=== PATIENT | male | born 1945 | race Hispanic/Latino ===

== ENCOUNTER 2016-09-13 20:04 | Inpatient (IN) | payer MEDICARE, BC ==
[2016-09-13] MEDS ORDERED: cefTRIAXone 1 gm 1 GM/100 ML BAG IVPB STA (20:59)
--- NOTE | 2016-09-13 21:03 | ED PDOC ---
Arrival/HPI - General Chief Complaint: Fever Time Seen by Provider: 09/13/16 20:49 - History of Present Illness Narrative History of Present Illness (Text): 71m brought in by for "thick and cloudy" urine x2 days, fever and decreased responsiveness today. she caths him 2x per day. spoke w pcp today and rx cipro but only took one pill today. pt w hx of parkinson. Past Medical History - Infectious Disease Hx of Infectious Diseases: None - Tetanus Immunization Tetanus Immunization: Unknown - Cardiac Hx Cardiac Arrhythmia: Yes Hx Hypertension: Yes Hx Internal Defibrillator: Yes Hx Pacemaker: Yes - Pulmonary Hx Respiratory Disorders: No - Neurological Hx Dementia: Yes Hx Parkinson's Disease: Yes - HEENT Hx Cataracts: Yes - Renal Hx Kidney Stones: Yes - Hematological/Oncological Hx Anemia: Yes - Musculoskeletal/Rheumatological Hx Arthritis: Yes - Genitourinary/Gynecological Hx Incontinence: Yes - Psychiatric Hx Depression: Yes Hx Emotional Abuse: No Hx Physical Abuse: No Hx Substance Use: No - Past Surgical History Past Surgical History: Unable to Obtain - Surgical History Hx Joint Replacement: Yes (L HIP) Hx Orthopedic Surgery: Yes (left hip orif, L femur) - Anesthesia Hx Anesthesia Reactions: No (unknown) Hx Malignant Hyperthermia: No (unknown) - Suicidal Assessment Feels Threatened In Home Enviroment: No Family/Social History Family/Social History: Unknown Family HX Smoking Status: Former Smoker Hx Alcohol Use: No Hx Substance Use: No Hx Substance Use Treatment: No Allergies/Home Meds Allergies/Adverse Reactions: Allergies No Known Allergies Allergy (Verified 08/04/13 15:38) Home Medications: Home Meds Medication Instructions Recorded Confirmed Aspirin [Ecotrin] 81 mg PO DAILY 09/13/16 09/13/16 Carvedilol [Coreg] 12.5 mg PO BID 09/13/16 09/13/16 Review of Systems - Physician Review All systems were reviewed & negative as marked: Yes - Review of Systems Constitutional: Fevers, Other (rigors) Respiratory: absent: SOB, Cough Cardiovascular: absent: Chest Pain Gastrointestinal: absent: Diarrhea, Vomiting Genitourinary Male: Other (see hpi) Neurological: Speech Changes (speaking less). absent: Focal Weakness Physical Exam Vital Signs Temp Pulse Resp BP Pulse Ox 09/13/16 20:17 102.4 F H 97 H 20 113/54 L 96 - Systems Exam Head: Present: Atraumatic Mouth: Present: Dry Neck: Present: Normal Range of Motion Respiratory/Chest: Present: Clear to Auscultation. No: Respiratory Distress, Accessory Muscle Use Cardiovascular: Present: Regular Rate and Rhythm Abdomen: No: Tenderness, Distention Upper Extremity: Present: NORMAL PULSES Lower Extremity: No: Edema Neurological: Present: Other (no focal deficits) Skin: Present: Warm, Dry Psychiatric: Present: Alert, Oriented x 3 Medical Decision Making - RAD Interpretation Radiology Orders: 09/13/16 20:49 CHEST PORTABLE [RAD] Stat - Medication Orders Current Medication Orders: Discontinued Medications Sodium Chloride 2,000 ml/ IV (SUPPLIES) 2,000 mls @ 3,401.94 mls/hr IV ONCE ONE PRN Reason: 60 ML/KG/HR Stop: 09/13/16 20:50 Disposition/Present on Arrival - Present on Arrival History of DVT/PE: No History of Uncontrolled Diabetes: No Urinary Catheter: No History of Decub. Ulcer: No History Surgical Site Infection Following: None - Disposition Referrals: Cecilio Bonilla MD [Primary Care Provider] - Follow up with primary
[2016-09-13 21:16] LABS: ADD MANUAL DIFF? NO
[2016-09-13 21:23] LABS: GRAN # 12.83 (1.4-6.5); GRAN % 91.2 % (50.0-68.0); HEMATOCRIT 38.4 % (42.0-52.0); LYMPH # 0.3 (1.2-3.4); LYMPH % 1.8 % (22.0-35.0); MEAN CELL VOLUME 82.9 fL (80.0-105.0); MEAN CORPUSCULAR HGB CONC 32.6 g/dl (31.0-37.0); MEAN PLATELET VOLUME 11.7 fl (7.0-11.0); PLATELET COUNT 135 10^3/uL (120.0-450.0); RED CELL DISTRIBUTION WIDTH 15.2 % (11.5-14.5); WHITE BLOOD COUNT 14.1 10^3/ul (4.5-11.0)
[2016-09-13 21:32] LABS: VENOUS BLOOD GAS BASE EXCESS 1.5 mmol/L (0.0-2.0)
[2016-09-13 21:40] LABS: INR 1.14 (0.93-1.08); PARTIAL THROMBOPLASTIN TIME 30.6 Seconds (23.7-30.8)
[2016-09-13 21:41] LABS: ALB/GLOB RATIO 1.2 (1.1-1.8); BILIRUBIN,TOTAL 0.8 mg/dL (0.2-1.3); CALCIUM 9.1 mg/dL (8.4-10.5); MAGNESIUM 1.9 mg/dL (1.7-2.2); PHOSPHOROUS 2.8 mg/dL (2.5-4.5); POTASSIUM 4.3 mmol/L (3.6-5.0); TOTAL PROTEIN 6.7 g/dL (5.8-8.3)
[2016-09-13 22:17] LABS: URINE BILIRUBIN NEGATIVE (NEGATIVE); URINE BLOOD LARGE (NEGATIVE); URINE GLUCOSE (UA) NEGATIVE (NEGATIVE); URINE KETONE NEGATIVE (NEGATIVE); URINE LEUKOCYTE ESTERASE MODERATE Leu/uL (NEGATIVE); URINE PROTEIN 100 mg/dL (<30 mg/dL); URINE UROBILINOGEN 0.2 E.U./dL (<1 E.U./dL)
[2016-09-13 22:24] LABS: URINE APPEARANCE TURBID (CLEAR); URINE COLOR YELLOW (YELLOW)
[2016-09-13 22:27] LABS: URINE BACTERIA MANY (NEG); URINE RBC 20 - 25 /hpf (0-2); URINE WBC TNTC /hpf (0-6)
[2016-09-13] MEDS ORDERED: Sodium Chloride 0.9% 1,000 ML IV SCH (22:45)
[2016-09-14 01:51] LABS: VENOUS BLOOD GAS BASE EXCESS -2.5 mmol/L (0.0-2.0); VENOUS BLOOD PH 7.32 (7.32-7.43)
[2016-09-14 02:22] VITALS: BMI 19.0
--- NOTE | 2016-09-14 08:31 | RAD ---
HISTORY: Sepsis Patient COMPARISON: Chest x-ray performed 03/05/16 TECHNIQUE: Chest, one view. FINDINGS: Examination markedly limited by hypoinflation as well as habitus. The patient's chin obscures evaluation of the lung apices, in particularly the right lung apex. LUNGS: Perihilar prominence. No focal consolidation. Please note that chest x-ray has limited sensitivity for the detection of pulmonary masses. PLEURA: No significant pleural effusion identified. No definite pneumothorax . CARDIOVASCULAR: Single lead left-sided AICD. Cardiomegaly. Ectatic aorta. OSSEOUS STRUCTURES: No acute osseous abnormality identified. VISUALIZED UPPER ABDOMEN: Unremarkable. OTHER FINDINGS: None. IMPRESSION: Limited study. Perihilar prominence. Cardiomegaly. Single lead AICD.
[2016-09-14] MEDS: Cefepime 1gm in NS 100ml 1 GM/100 ML BAG IVPB SCH ×2 (10:11→22:38)
[2016-09-14] MEDS ORDERED: Sodium Chloride 0.9% 1,000 ML IV SCH (10:42)
[2016-09-14 12:17] LABS: ADD MANUAL DIFF? NO
[2016-09-14 12:21] LABS: BASO # 0.01 K/mm3 (0.0-2.0); BASO % 0.1 % (0.0-3.0); GRAN # 13.21 (1.4-6.5); GRAN % 89.9 % (50.0-68.0); HEMATOCRIT 38.3 % (42.0-52.0); LYMPH # 0.4 (1.2-3.4); LYMPH % 2.8 % (22.0-35.0); MEAN CELL VOLUME 84.2 fL (80.0-105.0); MEAN CORPUSCULAR HEMOGLOBIN 27.7 pg (25.0-35.0); MEAN CORPUSCULAR HGB CONC 32.9 g/dl (31.0-37.0); MEAN PLATELET VOLUME 11.9 fl (7.0-11.0); MONO # 1.1 (0.1-0.6); MONO % 7.2 % (1.0-6.0); PLATELET COUNT 124 10^3/uL (120.0-450.0); RED CELL DISTRIBUTION WIDTH 15.5 % (11.5-14.5); WHITE BLOOD COUNT 14.7 10^3/ul (4.5-11.0)
[2016-09-14 12:34] LABS: ALB/GLOB RATIO 1.2 (1.1-1.8); ALKALINE PHOSPHATASE 62 U/L (38-133); ALT/SGPT 21 U/L (7-56); AST/SGOT 28 U/L (15-59); BILIRUBIN,TOTAL 0.5 mg/dL (0.2-1.3); BLOOD UREA NITROGEN 22 mg/dL (7-21); CALCIUM 9.1 mg/dL (8.4-10.5); CARBON DIOXIDE 19 mmol/L (21-33); CHLORIDE 112 mmol/L (98-107); GFR AFRICAN-AMERICAN > 60; GLUCOSE,RANDOM 115 mg/dL (70-110); POTASSIUM 4.3 mmol/L (3.6-5.0); SODIUM 141 mmol/L (132-148); TOTAL PROTEIN 5.9 g/dL (5.8-8.3)
--- NOTE | 2016-09-14 13:49 | US ---
PROCEDURE: Ultrasound of the Kidneys HISTORY: rule out hydronephrosis COMPARISON: Renal ultrasound performed 05/03/13 TECHNIQUE: Sonogram of the kidneys. FINDINGS: Examination limited by habitus. RIGHT KIDNEY: Measures: 10.6 x 5.5 x 5.5 cm. No obstructing calculus or hydronephrosis identified. 2.3 x 1.6 x 1.7 cm cyst. LEFT KIDNEY: Measures: 10 x 6.2 x 7.7 cm. No obstructing calculus identified. Probable mild to moderate left hydronephrosis. 6.0 x 4.9 x 5.3 cm cyst. OTHER FINDINGS: None. IMPRESSION: Limited study. Bilateral large probable renal cysts as above. Probable mild to moderate left hydronephrosis.
--- NOTE | 2016-09-14 15:19 | HP ---
HISTORY OF PRESENT ILLNESS: I saw him in his room this morning. I see him on house calls. His is present. He is fairly comfortable. He came in with a thick and cloudy urine for 2 days, decreas ed responsiveness. He has to cath himself twice a day. He was on Cipro, did not work, and now we se e he has a history of Parkinson's. He is a 71-year-old male who now has thick and cloudy urine, prob ably infected. PAST MEDICAL HISTORY: Parkinson's, hypertension, internal defibrillator pacemaker, AICD. He has got dementia, cataracts. He has kidney stones, anemia, arthritis, incontinence, depression, left hip re placement, ORIF left femur. FAMILY HISTORY: Hypertension in the family. SOCIAL HISTORY: He is a former smoker, no alcohol, no drugs. ALLERGIES: No known drug allergies. MEDICATIONS: He takes Ecotrin and Coreg. REVIEW OF SYSTEMS: He had fever, chills, change in mentation, a little more confused. No shortness of breath, no chest pain, no nausea, vomiting, constipation, diarrhea. He has urinary retention and he self-caths himself. He had speech changes, slurred speech, he was off mentally. No skin issues. PHYSICAL EXAMINATION: VITAL SIGNS: He comes in with a 102.4 temp, 97 pulse, 20 respiratory rate, 113/54 blood pressure, 96 % O2 sat. HEENT: Head is atraumatic, normocephalic. Throat is dry. NECK: Supple. Thyroid midline. No palpable appreciative lymphadenopathy. HEART: Regular rate. LUNGS: Decreased breath sounds, but clear to auscultation. No wheezes, no rhonchi, no rales. ABDOMEN: Soft, nontender, positive bowel sounds, no guarding, no rebound, no CVA tenderness. EXTREMITIES: No edema, but they are weak, slow to move from the Parkinson's. He is weak to talk, sl ow to get started. Flat affect on the face due to Parkinson's. SKIN: Warm and dry. NEUROLOGIC: He is alert and oriented x 3. LABORATORY DATA: He has a 14.1 white count, 12.5 hemoglobin, 30.4 hematocrit with 135 platelets. IN R is 1.14, pH is 7.32. He has a 135 sodium, potassium 4.3, BUN 26, creatinine 1.5. Sugar is 126. GF R is 46. Calcium 9.1, phosphorus 2.8, magnesium 1.9, total bili is 0.8, AST is 27, ALT is 23, alkali ne phosphatase 61, total protein 6.7, albumin 3.6, globulin 3.1. On urine, large blood, positive nit rites, moderate leukocytes, many bacteria. ASSESSMENT AND PLAN: He is here with a urinary tract infection, sepsis, renal insufficiency, history of Parkinson's. The wants him to go home, but at this time I cannot see that happening. Will recheck his labs. He is going to have a consult with urology. His doctor is Dr. Grant. Also infecti ous disease for intravenous antibiotics and intravenous fluids. I will watch him overnight. We will see how he does with the physical therapy. Rambo Smith DO cc: [id number] TT: 09/14/2016 15:18:50 rn
--- NOTE | 2016-09-14 15:20 | CP.PCM.CON ---
History of Present Illness - History of Present Illness History of Present Illness: 71 year old male with PMH of HTN, S/P AICD and pacemaker placement, cataracts, Parkinson's disease, dementia, S/P left hip surgery, history of nephrolithiasis was brought in by the because of cloudy urine associated with fever and lethargy for the past 2 days. There was no note of loss of consciousness, no vomiting, no diarrhea, no convulsions. Further review of systems is unobtainable because of the patient's dementia. Infectious Diseases consult is requested to further evaluate and manage. Review of Systems - Review of Systems Systems not reviewed;Unavailable: Dementia Past Patient History - Infectious Disease Hx of Infectious Diseases: None - Tetanus Immunizations Tetanus Immunization: Unknown - Past Social History Smoking Status: Former Smoker - CARDIAC Hx Cardiac Disorders: Yes Hx Angina: Yes Hx Hypercholesterolemia: Yes Hx Hypertension: Yes Hx Internal Defibrillator: Yes Hx Pacemaker: Yes - PULMONARY Hx Respiratory Disorders: No - NEUROLOGICAL Hx Parkinson's Disease: Yes - HEENT Hx HEENT Problems: No - RENAL Hx Chronic Kidney Disease: No - ENDOCRINE/METABOLIC Hx Endocrine Disorders: No - HEMATOLOGICAL/ONCOLOGICAL Hx Blood Disorders: No - INTEGUMENTARY Hx Dermatological Problems: No - MUSCULOSKELETAL/RHEUMATOLOGICAL Hx Arthritis: Yes Hx Falls: No - GENITOURINARY/GYNECOLOGICAL Hx Genitourinary Disorders: Yes Hx Prostate Problems: Yes Hx Urinary Tract Infection: Yes - PSYCHIATRIC Hx Psychophysiologic Disorder: Yes Hx Anxiety: Yes Hx Depression: Yes Hx Substance Use: No - SURGICAL HISTORY Hx Orthopedic Surgery: Yes - ANESTHESIA Hx Anesthesia Reactions: No (unknown) Hx Malignant Hyperthermia: No (unknown) Meds Allergies/Adverse Reactions: Allergies Allergy/AdvReac Type Severity Reaction Status Date / Time No Known Allergies Allergy Verified 08/04/13 15:38 - Medications Medications: Current Medications Sodium Chloride (Sodium Chloride 0.9%) 1,000 mls @ 100 mls/hr IV .Q10H [facility] Last Admin: 09/14/16 00:44 Dose: 100 mls/hr Physical Exam - Constitutional Appears: Non-toxic, No Acute Distress - Head Exam Head Exam: NORMAL INSPECTION - Neck Exam Neck exam: Negative for: Meningismus - Respiratory Exam Respiratory Exam: Decreased Breath Sounds - Cardiovascular Exam Cardiovascular Exam: +S1, +S2 - GI/Abdominal Exam GI & Abdominal Exam: Soft. absent: Tenderness Results - Vital Signs Recent Vital Signs: Last Vital Signs Temp 98.2 F 09/14/16 01:25 Pulse 70 09/14/16 01:25 Resp 18 09/14/16 01:25 BP 108/62 09/14/16 01:25 Pulse Ox 94 L 09/14/16 00:29 - Labs Result Diagrams: 09/14/16 12:16 09/14/16 12:12 Labs: Laboratory Results - last 24 hr 09/14/16 01:40 pO2 38 VBG pH 7.32 VBG pCO2 46.0 VBG HCO3 23.7 VBG Total CO2 25.1 VBG O2 Sat (Calc) 72.7 H VBG Base Excess -2.5 L VBG Potassium 4.2 Sodium 138.0 Chloride 112.0 H Glucose 126 H Lactate 0.8 FiO2 21.0 Venous Blood Potassium 4.2 Assessment & Plan - Assessment and Plan (Free Text) Plan: Assessment Systemic Inflammatory Response syndrome, consider sepsis due to urinary tract infection HTN S/P AICD and pacemaker placement cataracts Parkinson's disease dementia S/P left hip surgery history of nephrolithiasis Plan started patient on Cefepime pending blood and urine cx; will also check renal ultrasound especially since he has a history of kidney stones will follow clinically
--- NOTE | 2016-09-14 15:43 | CARD ---
APPROVED REPORT EKG Measurement Heart [id number] <Conclusion> Sinus rhythm with occasional premature ventricular complexes Left axis deviation Left ventricular hypertrophy with QRS widening and repolarization abnormality Abnormal ECG
[2016-09-14 16:52] VITALS: RESP 20
--- NOTE | 2016-09-15 06:28 | PCM.URO ---
Urology Progress Note - Objective Lab Results Last 24 Hours: Laboratory Results - last 24 hr 09/14/16 09/14/16 09/14/16 10:03 12:12 12:16 WBC 14.7 H RBC 4.55 Hgb 12.6 L Hct 38.3 L MCV 84.2 MCH 27.7 MCHC 32.9 RDW 15.5 H Plt Count 124 MPV 11.9 H Gran % 89.9 H Lymph % (Auto) 2.8 L [place] % (Auto) 7.2 H Eos % (Auto) 0.0 L Baso % (Auto) 0.1 Gran # 13.21 H Lymph # 0.4 L [place] # 1.1 H Eos # 0.0 Baso # 0.01 Sodium 141 Potassium 4.3 Chloride 112 H Carbon Dioxide 19 L Anion Gap 14 BUN 22 H Creatinine 1.3 Est GFR ( Amer) > 60 Est GFR (Non-Af Amer) 54 Random Glucose 115 H Calcium 9.1 Total Bilirubin 0.5 AST 28 ALT 21 Alkaline Phosphatase 62 Total Protein 5.9 Albumin 3.2 Globulin 2.7 Albumin/Globulin Ratio 1.2 Prostate Specific Ag 6.3 H Intake & Output: Intake & Output 09/14/16 09/14/16 09/15/16 06:59 18:59 06:59 Intake Total 0 Balance 0 Weight 125 lb Intake: Oral 0 Other: Voiding Method Self-Catheterization # Voids Urine, Voided 0 # Bowel Movements 0 Vital Signs: Vital Signs - 24 hr 09/14/16 09/14/16 09/14/16 08:18 16:52 18:45 Temperature 98.7 F 97.5 F L Pulse Rate 68 95 H 95 H Respiratory 18 20 Rate Blood Pressure 137/67 128/72 128/72 O2 Sat by Pulse 97 96 Oximetry
[2016-09-15 08:28] LABS: ALB/GLOB RATIO 1.1 (1.1-1.8); ALKALINE PHOSPHATASE 59 U/L (38-133); ALT/SGPT 25 U/L (7-56); AST/SGOT 25 U/L (15-59); BILIRUBIN,TOTAL 0.4 mg/dL (0.2-1.3); BLOOD UREA NITROGEN 19 mg/dL (7-21); CALCIUM 8.6 mg/dL (8.4-10.5); CARBON DIOXIDE 19 mmol/L (21-33); CHLORIDE 111 mmol/L (95-110); GFR AFRICAN-AMERICAN > 60; GLUCOSE,RANDOM 81 mg/dL (70-110); POTASSIUM 3.7 mmol/L (3.6-5.0); SODIUM 140 mmol/L (132-148)
[2016-09-15 08:33] LABS: HEMATOCRIT 37.1 % (42.0-52.0); MEAN CELL VOLUME 83.9 fL (80.0-105.0); MEAN CORPUSCULAR HEMOGLOBIN 26.7 pg (25.0-35.0); MEAN CORPUSCULAR HGB CONC 31.8 g/dl (31.0-37.0); RED CELL DISTRIBUTION WIDTH 15.6 % (11.5-14.5); WHITE BLOOD COUNT 9.2 10^3/ul (4.5-11.0)
[2016-09-15 08:35] VITALS: BP 140/79; PULSE 86; TEMP 97.8; O2SAT 97
[2016-09-15] MEDS: Cefepime 1gm in NS 100ml 1 GM/100 ML BAG IVPB SCH (09:18)
--- NOTE | 2016-09-15 12:26 | CP.PCM.PN ---
Subjective - Date & Time of Evaluation Date of Evaluation: 09/15/16 Time of Evaluation: 11:25 - Subjective Subjective: Comfortable in bed, not in distress. Afebrile overnight. Objective - Vital Signs/Intake and Output Vital Signs (last 24 hours): Temp Pulse Resp BP Pulse Ox 97.8 F 86 20 140/79 97 09/15/16 08:34 09/15/16 09:18 09/15/16 08:34 09/15/16 09:18 09/15/16 08:34 - Medications Medications: Current Medications Aspirin (Ecotrin) 81 mg PO DAILY [facility] Last Admin: 09/15/16 09:18 Dose: 81 mg Carvedilol (Coreg) 12.5 mg PO BID [facility] Last Admin: 09/15/16 09:18 Dose: 12.5 mg Cefepime HCl (Maxipime 1gm) 1 gm in 100 mls @ 100 mls/hr IVPB Q12 [facility] PRN Reason: Protocol Stop: 09/21/16 10:01 Last Admin: 09/15/16 09:18 Dose: 100 mls/hr Sodium Chloride (Sodium Chloride 0.9%) 1,000 mls @ 60 mls/hr IV .[id number] [facility] - Labs Labs: 09/15/16 07:54 09/15/16 07:54 PT 12.3 Seconds (9.9-11.8) H 09/13/16 20:31 INR 1.14 (0.93-1.08) H 09/13/16 20:31 APTT 30.6 Seconds (23.7-30.8) 09/13/16 20:31 - Constitutional Appears: Non-toxic, No Acute Distress - Head Exam Head Exam: NORMAL INSPECTION - Neck Exam Neck Exam: absent: Lymphadenopathy, Meningismus - Respiratory Exam Respiratory Exam: Decreased Breath Sounds - Cardiovascular Exam Cardiovascular Exam: +S1, +S2 - GI/Abdominal Exam GI & Abdominal Exam: Soft. absent: Tenderness Assessment and Plan - Assessment and Plan (Free Text) Plan: Assessment Systemic Inflammatory Response syndrome, consider sepsis due to urinary tract infection HTN S/P AICD and pacemaker placement cataracts Parkinson's disease dementia S/P left hip surgery history of nephrolithiasis Plan started patient on Cefepime; reviewed blood and urine cx which are negative, but urine cx may have been taken after antibiotics were started; renal ultrasound shows hydronephrosis but no evidence of obstruction or stones - as discussed with Dr. Smith, can change to PO Vantin with outpatient follow up with PMD
--- NOTE | 2016-09-15 18:09 | DS ---
He did very well last night. He is there with his . He is comfortable, in no acute distress. Johanna tay says he is back to normal. He is currently on Coreg, Ecotrin, Maxipime IV, and IV. PHYSICAL EXAMINATION: VITAL SIGNS: Are 97.8 temp, 86 pulse, 140/79 blood pressure, 20 respiratory rate, 97% O2 sat on room air. HEAD: Is atraumatic, normocephalic. HEART: Regular rate. LUNGS: Clear to auscultation. ABDOMEN: Soft, nontender. EXTREMITIES: No edema. LABORATORY DATA: He has got a 9.2 white count, the best it has been; a 11.8 hemoglobin, 37.1 hematoc rit with 119 platelets. He has a 140 sodium, potassium 3.7, BUN 19, creatinine 1.3, much better. GF R is 54, sugar is 81, calcium is 8.6, total bili is 0.4. AST is 25, ALT is 25, alkaline phosphatase 59, total protein 6, albumin is 3.1, globulin 2.8. He is being seen by infectious disease and urology. I discussed him with infectious disease. I can discharge him on Vantin. He did very well. I will be discharging him home. He will be followed up on the outpatient on a house call. He had a urinary tract infection, sepsis, systemic inflammatory r esponse syndrome, renal insufficiency and Parkinson's. Rambo Smith DO cc: [id number] TT: 09/15/2016 18:08:46 dn
== END 2016-09-15 14:03 | disposition home or self-care (01) | DRG 872 ==
LOC: ED 20:04 → ERH 22:38 → 3RSO 09-14 00:48
PROVIDERS: ADMIT Family Medicine; ATTEND Family Medicine
DX: A41.9 Sepsis, unspecified organism (principal); N39.0 Urinary tract infection, site not specified; G20 Parkinson's disease; F02.80 Dementia in other diseases classified elsewhere, unspecified severity, without behavioral disturbance, psychotic disturbance, mood disturbance, and anxiety; I10 Essential (primary) hypertension; H26.9 Unspecified cataract; Z96.642 Presence of left artificial hip joint; Z87.442 Personal history of urinary calculi; Z95.810 Presence of automatic (implantable) cardiac defibrillator; Z79.82 Long term (current) use of aspirin; Z87.891 Personal history of nicotine dependence

== ENCOUNTER 2016-10-13 12:02 | Inpatient (IN) | payer MEDICARE, BC ==
[2016-10-13 12:03] VITALS: BMI 19.0
--- NOTE | 2016-10-13 13:21 | ED PDOC ---
Arrival/HPI - General Chief Complaint: Weakness/Neurological Deficit Time Seen by Provider: 10/13/16 12:08 Historian: Patient - History of Present Illness Narrative History of Present Illness (Text): 10/13/16 13:27 A 71 year old male, whose past medical history includes Parkinson's disease, was brought in by EMS with . reports unresponsive and dark urine since yesterday. Also notes patient is usually able to walk with walker and more awake. caths patient twice a day. Patient has visiting nurse service. also notes a decrease in appetite and clear phlegm but denies any fever or any other complaints at this time. PMD: Dr. Smith Time/Duration: Other (yesterday) Symptom Onset: Sudden Symptom Course: Unchanged Activities at Onset: Rest Context: Home Past Medical History - Provider Review Nursing Documentation Reviewed: Yes - Infectious Disease Hx of Infectious Diseases: None - Tetanus Immunization Tetanus Immunization: Unknown - Cardiac Hx Cardiac Arrhythmia: Yes Hx Hypertension: Yes Hx Internal Defibrillator: Yes Hx Pacemaker: Yes - Pulmonary Hx Respiratory Disorders: No - Neurological Hx Dementia: Yes Hx Parkinson's Disease: Yes - HEENT Hx Cataracts: Yes - Renal Hx Kidney Stones: Yes - Endocrine/Metabolic Hx Endocrine Disorders: No - Hematological/Oncological Hx Anemia: Yes - Integumentary Hx Dermatological Disorder: No - Musculoskeletal/Rheumatological Hx Arthritis: Yes - Genitourinary/Gynecological Hx Incontinence: Yes - Psychiatric Hx Depression: Yes Hx Emotional Abuse: No Hx Physical Abuse: No Hx Substance Use: No - Past Surgical History Past Surgical History: Unable to Obtain - Surgical History Hx Joint Replacement: Yes (L HIP) Hx Orthopedic Surgery: Yes (left hip orif, L femur) - Anesthesia Hx Anesthesia Reactions: No (unknown) Hx Malignant Hyperthermia: No (unknown) - Suicidal Assessment Feels Threatened In Home Enviroment: No Family/Social History - Physician Review Nursing Documentation Reviewed: Yes Family/Social History: No Known Family HX Smoking Status: Former Smoker Hx Alcohol Use: No Hx Substance Use: No Hx Substance Use Treatment: No Allergies/Home Meds Allergies/Adverse Reactions: Allergies No Known Allergies Allergy (Verified 10/13/16 12:14) Home Medications: Home Meds Medication Instructions Recorded Confirmed Aspirin [Ecotrin] 81 mg PO DAILY 09/13/16 10/13/16 Carvedilol [Coreg] 12.5 mg PO BID 09/13/16 10/13/16 Review of Systems - Physician Review All systems were reviewed & negative as marked: Yes - Review of Systems Constitutional: Other (unresponsiveness). absent: Fevers Respiratory: absent: Other (clear phlegm) Gastrointestinal: Appetite Changes Genitourinary Male: Urinary Output Changes Physical Exam Vital Signs Reviewed: Yes Vital Signs Temp Pulse Resp BP Pulse Ox 10/13/16 16:07 80 16 98/55 L 95 10/13/16 13:44 100.5 F H 92 H 16 110/53 L 94 L Temperature: Febrile Blood Pressure: Hypotensive Pulse: Regular Respiratory Rate: Normal Appearance: Positive for: Well-Appearing, Non-Toxic, Comfortable Pain Distress: None Mental Status: Positive for: other (responding, following commands) - Systems Exam Head: Present: Atraumatic, Normocephalic Pupils: Present: PERRL Extroacular Muscles: Present: EOMI Conjunctiva: Present: Normal Mouth: Present: Dry Neck: Present: Normal Range of Motion Respiratory/Chest: Present: Clear to Auscultation, Good Air Exchange. No: Respiratory Distress, Accessory Muscle Use Cardiovascular: Present: Regular Rate and Rhythm, Normal S1, S2. No: Murmurs Abdomen: Present: Normal Bowel Sounds. No: Tenderness, Distention, Peritoneal Signs Back: Present: Normal Inspection Upper Extremity: Present: Normal Inspection. No: Cyanosis, Edema Lower Extremity: Present: Normal Inspection. No: Edema (peripheral) Neurological: Present: GCS=15, CN II-XII Intact, Speech Normal Skin: Present: Warm, Dry, Normal Color. No: Rashes Psychiatric: Present: Normal [facility]ight Medical Decision Making ED Course and Treatment: 10/13/16 13:18 Impression: A 71 year old male with unresponsiveness and dark urine. Differential Diagnosis included but are not limited to: dehydration vs. urinary tract infection vs. pneumonia Plan: -- EKG -- chest xray -- CT head -- labs -- Urinalysis -- Reassess and disposition Prior Visits: Notes and results from previous visits were reviewed. Patient last reported to the emergency department on 09/13/16 for evaluation of fever, decreased responsiveness and "thick and cloudy" urine. Patient was admitted for UTI. Patient was discharged 09/15/16. Progress Notes: EKG: Ordered, reviewed, and independently interpreted the EKG. Rate : 93 BPM Rhythm : NSR Interpretation : left axis deviation, anterior fascicular block, T wave inversion 1 AVL, LVH Comparison : No change from EKG on 09/13/16 10/13/16 14:06 Chest xray: Creator : Lexa Workman MD IMPRESSION: No focal consolidation. Cardiomegaly. 10/13/16 14:44 CT HEAD WITHOUT CONTRAST Creator : Lexa Workman MD IMPRESSION: No acute intracranial hemorrhage. Moderate chronic white matter ischemic changes. Discrete chronic left posterior frontal infarct with a few chronic appearing subcortical white matter infarct changes scattered about both cerebral hemispheres. - Lab Interpretations Lab Results: 10/13/16 13:34 10/13/16 13:34 Lab Results 10/13/16 13:40: Urine Color Yellow, Urine Appearance Clear, Urine pH 6.0, Ur Specific [place] 1.025, Urine Protein 100 H, Urine Glucose (UA) Negative, Urine Ketones Negative, Urine Blood Moderate H, Urine Nitrate Positive H, Urine Bilirubin Negative, Urine Urobilinogen 0.2, Ur Leukocyte Esterase Small H, Urine RBC 0 - 2, Urine WBC Tntc, Ur Epithelial Cells 0 - 2, Urine Bacteria Mod 10/13/16 13:34: Sodium 136, Chloride 105, Potassium 4.5, Carbon Dioxide 22, Anion Gap 14, BUN 22 H, Creatinine 1.4, Est GFR ( Amer) > 60, Est GFR ( Non-Af Amer) 50, Random Glucose 123 H, Calcium 9.2, Phosphorus 3.4, Magnesium 1.9, Total Bilirubin 1.1, AST 17, ALT 18, Alkaline Phosphatase 66, Troponin I < 0.01 D, Total Protein 6.8, Albumin 3.7, Globulin 3.1, Albumin/Globulin Ratio 1.2 10/13/16 13:34: pO2 61 H, VBG pH 7.43, VBG pCO2 37.0 L, VBG HCO3 24.6, VBG Total CO2 25.7, VBG O2 Sat (Calc) 94.9 H, VBG Base Excess 0.5, VBG Potassium 4.4 , Sodium 137.0, Chloride 107.0, Glucose 128 H, Lactate 1.1, FiO2 21.0, Venous Blood Potassium 4.4 10/13/16 13:34: WBC 13.3 H D, RBC 4.73, Hgb 12.9 L, Hct 39.2 L, MCV 82.9, MCH 27.3, MCHC 32.9, RDW 15.6 H, Plt Count 110 L, MPV 11.0, Gran % 89.8 H, Lymph % ( Auto) 3.2 L, [place] % (Auto) 6.9 H, Eos % (Auto) 0.0 L, Baso % (Auto) 0.1, Gran # 11.91 H, Lymph # 0.4 L, [place] # 0.9 H, Eos # 0.0, Baso # 0.01 I have reviewed the lab results: Yes - RAD Interpretation Radiology Orders: 10/13/16 12:38 CHEST PORTABLE [RAD] Stat 10/13/16 12:59 HEAD W/O CONTRAST [CT] Stat - EKG Interpretation Interpreted by ED Physician: Yes Type: 12 lead EKG - Medication Orders Current Medication Orders: Aspirin (Aspirin Chewable) 81 mg PO HS BERONICA Carvedilol (Coreg) 12.5 mg PO BID BERONICA Sodium Chloride (Sodium Chloride 0.9%) 1,000 mls @ 100 mls/hr IV .Q10H BERONICA Last Admin: 10/13/16 14:14 Dose: 100 mls/hr Cefepime HCl (Maxipime 1gm) 1 gm in 100 mls @ 100 mls/hr IVPB Q12 BERONICA PRN Reason: Protocol Stop: 10/20/16 22:01 Discontinued Medications Ceftriaxone Sodium (Rocephin 1 Gram Ivpb) 1 gm in 100 mls @ 200 mls/hr IVPB STAT STA PRN Reason: Protocol Stop: 10/13/16 16:01 Last Admin: 10/13/16 16:07 Dose: 200 mls/hr - Scribe Statement The provider has reviewed the documentation as recorded by the Luz Knott Provider Scribe Attestation: All medical record entries made by the Luz were at my direction and personally dictated by me. I have reviewed the chart and agree that the record accurately reflects my personal performance of the history, physical exam, medical decision making, and the department course for this patient. I have also personally directed, reviewed, and agree with the discharge instructions and disposition. Disposition/Present on Arrival - Present on Arrival Any Indicators Present on Arrival: No History of DVT/PE: No History of Uncontrolled Diabetes: No Urinary Catheter: No History of Decub. Ulcer: No History Surgical Site Infection Following: None - Disposition Have Diagnosis and Disposition been Completed?: Yes Diagnosis: UTI (urinary tract infection), Dehydration Disposition: HOSPITALIZED Disposition Time: 15:15 Condition: STABLE
[2016-10-13 13:41] LABS: VENOUS BLOOD GAS BASE EXCESS 0.5 mmol/L (0.0-2.0); VENOUS BLOOD GAS PO2 61 mm/Hg (30-55); VENOUS BLOOD PH 7.43 (7.32-7.43)
[2016-10-13 13:48] LABS: BASO # 0.01 K/mm3 (0.0-2.0); BASO % 0.1 % (0.0-3.0); GRAN # 11.91 (1.4-6.5); GRAN % 89.8 % (50.0-68.0); HEMOGLOBIN 12.9 gm/dL (14.0-18.0); LYMPH # 0.4 (1.2-3.4); LYMPH % 3.2 % (22.0-35.0); MEAN CELL VOLUME 82.9 fL (80.0-105.0); MEAN CORPUSCULAR HEMOGLOBIN 27.3 pg (25.0-35.0); MEAN CORPUSCULAR HGB CONC 32.9 g/dl (31.0-37.0); MONO # 0.9 (0.1-0.6); MONO % 6.9 % (1.0-6.0); PLATELET COUNT 110 10^3/uL (120.0-450.0); RBC 4.73 10^6/uL (3.5-6.1); RED CELL DISTRIBUTION WIDTH 15.6 % (11.5-14.5); WHITE BLOOD COUNT 13.3 10^3/ul (4.5-11.0)
[2016-10-13 13:59] LABS: URINE BILIRUBIN NEGATIVE (NEGATIVE); URINE BLOOD MODERATE (NEGATIVE); URINE GLUCOSE (UA) NEGATIVE (NEGATIVE); URINE LEUKOCYTE ESTERASE SMALL Leu/uL (NEGATIVE); URINE NITRATE POSITIVE (NEGATIVE); URINE PROTEIN 100 mg/dL (<30 mg/dL); URINE UROBILINOGEN 0.2 E.U./dL (<1 E.U./dL)
[2016-10-13 14:00] LABS: URINE APPEARANCE CLEAR (CLEAR); URINE COLOR YELLOW (YELLOW)
--- NOTE | 2016-10-13 14:05 | RAD ---
HISTORY: r/o infiltrate COMPARISON: Comparison chest 09/13/2016 FINDINGS: LUNGS: No focal consolidation. PLEURA: No significant pleural effusion identified, no pneumothorax apparent. CARDIOVASCULAR: In situ single lead pacemaker defibrillator unchanged. Rule Cardiomegaly. OSSEOUS STRUCTURES: No significant abnormalities. VISUALIZED UPPER ABDOMEN: Normal. OTHER FINDINGS: None. IMPRESSION: No focal consolidation. Cardiomegaly.
[2016-10-13 14:06] LABS: ALB/GLOB RATIO 1.2 (1.1-1.8); ALBUMIN 3.7 g/dL (3.0-4.8); ALT/SGPT 18 U/L (7-56); AST/SGOT 17 U/L (15-59); BLOOD UREA NITROGEN 22 mg/dL (7-21); CALCIUM 9.2 mg/dL (8.4-10.5); GFR AFRICAN-AMERICAN > 60; GFR NON-AFRICAN AMERICAN 50; MAGNESIUM 1.9 mg/dL (1.7-2.2)
[2016-10-13 14:11] LABS: URINE BACTERIA MOD (NEG); URINE EPITHELIAL CELLS 0 - 2 /hpf (0-5); URINE RBC 0 - 2 /hpf (0-2); URINE WBC TNTC /hpf (0-6)
[2016-10-13] MEDS: Sodium Chloride 0.9% 1,000 ML IV SCH (14:14)
--- NOTE | 2016-10-13 14:43 | CT ---
PROCEDURE: CT HEAD WITHOUT CONTRAST. HISTORY: r/o ICH COMPARISON: Comparison made with CT scan brain 03/06/2015 TECHNIQUE: Axial computed tomography images were obtained through the head/brain without intravenous contrast. Radiation dose: Total exam DLP = 774.32 key3 mGy-cm. This CT exam was performed using one or more of the following dose reduction techniques: Automated exposure control, adjustment of the mA and/or kV according to patient size, and/or use of iterative reconstruction technique. FINDINGS: HEMORRHAGE: No acute parenchymal, subarachnoid nor extra-axial hemorrhage. BRAIN: Re- demonstrated is chronic left posterior frontal cortical/ subcortical and slightly deeper white matter infarct. Additionally, moderate diffuse/ confluent chronic periventricular white matter ischemic changes are also seen extending peripherally into the deep and subcortical white matter both cerebral hemispheres. The few scattered subcortical on ischemic changes are also felt to be present. Note that the possibility of a small hyperacute infarct cannot be completely excluded on this study. Moderate generalized volume loss. Mild vascular calcifications again noted. VENTRICLES: No evidence of obstructive hydrocephalus CALVARIUM: Calvarium appears grossly intact PARANASAL SINUSES: Unremarkable as visualized. No significant inflammatory changes. MASTOID AIR CELLS: Unremarkable as visualized. No inflammatory changes. OTHER FINDINGS: None. IMPRESSION: No acute intracranial hemorrhage. Moderate chronic white matter ischemic changes. Discrete chronic left posterior frontal infarct with a few chronic appearing subcortical white matter infarct changes scattered about both cerebral hemispheres.
[2016-10-13 15:09] LABS: TROPONIN I < 0.01 ng/mL
[2016-10-13] MEDS ORDERED: cefTRIAXone 1 gm 1 GM/100 ML BAG IVPB STA (15:32)
[2016-10-13] MEDS: Cefepime 1gm in NS 100ml 1 GM/100 ML BAG IVPB SCH (22:23)
[2016-10-14] MEDS: Sodium Chloride 0.9% 1,000 ML IV SCH ×2 (01:11→09:43)
[2016-10-14 07:50] VITALS: RESP 20
[2016-10-14] MEDS: Cefepime 1gm in NS 100ml 1 GM/100 ML BAG IVPB SCH ×2 (09:42→21:41)
--- NOTE | 2016-10-14 11:15 | CP.PCM.CON ---
History of Present Illness - History of Present Illness History of Present Illness: 71 year old male with PMH of HTN, S/P AICD and pacemaker placement, cataracts, Parkinson's disease, dementia, S/P left hip surgery, history of nephrolithiasis was brought in by the family because of fever and lethargy since yesterday. The patient's also noted that the patient's urine has become darker than usual , as well as decreased appetite. The does intermittent urinary catheterization for the patient. In the ED, there was note of fever and leukocytosis. There is no note of convulsions, no loss of consciousness, no diarrhea, no cough, no respiratory distress. Full review of sytems is unobtainable because of the patient's dementia. Urinalysis is showing pyuria. Infectious diseases consult us requested to further evaluate and manage. Review of Systems - Review of Systems Systems not reviewed;Unavailable: Dementia Past Patient History - Infectious Disease Hx of Infectious Diseases: None - Tetanus Immunizations Tetanus Immunization: Unknown - Past Social History Smoking Status: Former Smoker - CARDIAC Hx Cardia Arrhythmia: Yes Hx Hypertension: Yes Hx Internal Defibrillator: Yes Hx Pacemaker: Yes - PULMONARY Hx Respiratory Disorders: No - NEUROLOGICAL Hx Dementia: Yes Hx Parkinson's Disease: Yes - HEENT Hx Cataracts: Yes - RENAL Hx Kidney Stones: Yes - ENDOCRINE/METABOLIC Hx Endocrine Disorders: No - HEMATOLOGICAL/ONCOLOGICAL Hx Anemia: Yes - INTEGUMENTARY Hx Dermatological Problems: No - MUSCULOSKELETAL/RHEUMATOLOGICAL Hx Arthritis: Yes - GENITOURINARY/GYNECOLOGICAL Hx Incontinence: Yes - PSYCHIATRIC Hx Depression: Yes Hx Emotional Abuse: No Hx Physical Abuse: No Hx Substance Use: No - SURGICAL HISTORY Hx Joint Replacement: Yes (L HIP) Hx Orthopedic Surgery: Yes (left hip orif, L femur) - ANESTHESIA Hx Anesthesia Reactions: No (unknown) Hx Malignant Hyperthermia: No (unknown) Meds Allergies/Adverse Reactions: Allergies Allergy/AdvReac Type Severity Reaction Status Date / Time No Known Allergies Allergy Verified 10/13/16 12:14 - Medications Medications: Current Medications Sodium Chloride (Sodium Chloride 0.9%) 1,000 mls @ 100 mls/hr IV .Q10H BERONICA Last Admin: 10/13/16 14:14 Dose: 100 mls/hr Cefepime HCl (Maxipime 1gm) 1 gm in 100 mls @ 100 mls/hr IVPB Q12 BERONICA PRN Reason: Protocol Stop: 10/20/16 22:01 Physical Exam - Constitutional Appears: Non-toxic, No Acute Distress - Head Exam Head Exam: NORMAL INSPECTION - Neck Exam Neck exam: Negative for: Meningismus - Respiratory Exam Respiratory Exam: Decreased Breath Sounds - Cardiovascular Exam Cardiovascular Exam: +S1, +S2 - GI/Abdominal Exam GI & Abdominal Exam: Soft. absent: Tenderness Results - Vital Signs Recent Vital Signs: Last Vital Signs Temp 100.5 F H 10/13/16 13:44 Pulse 80 10/13/16 16:07 Resp 16 10/13/16 16:07 BP 98/55 L 10/13/16 16:07 Pulse Ox 95 10/13/16 16:07 - Labs Result Diagrams: 10/13/16 13:34 10/13/16 13:34 Assessment & Plan - Assessment and Plan (Free Text) Plan: Assessment sepsis due to gram negative bacilli urinary tract infection HTN S/P AICD and pacemaker placement cataracts Parkinson's disease dementia S/P left hip surgery history of nephrolithiasis Plan started patient on Cefepime pending identification and sensitivities of the gram negative bacilli in the urine; follow up blood cx as well will monitor clinically
--- NOTE | 2016-10-14 17:20 | CARD ---
APPROVED REPORT EKG Measurement Heart [id number] <Conclusion> Normal sinus rhythm Left axis deviation Left ventricular hypertrophy with QRS widening and repolarization abnormality Abnormal ECG
--- NOTE | 2016-10-14 23:43 | HP ---
HISTORY OF PRESENT ILLNESS: I know Jane very well from house calls and also the last time he was in the hospital. His brought him to the emergency room and he was unresponsive and with dark urine. I sent him into the emergency room after talking with her. He gets brewer cathed twice a day by the at home. He has end-stage Parkinson's disease. He is bed bound and she does most of the care. Also there has been decrease in appetite and some phlegm, this is a sudden change. PAST MEDICAL HISTORY: Hypertension with arrhythmia with an internal defibrillator present. He has Parkinson's disease with mild dementia, cataracts, kidney stones, anemia, arthritis, incontinence, depression PAST SURGICAL HISTORY: He had left hip replacement, and left hip ORIF, left femur. FAMILY HISTORY: No known family history. SOCIAL HISTORY: He is former smoker. No alcohol. No drugs. ALLERGIES: NO KNOWN DRUG ALLERGIES. MEDICATIONS: He takes Ecotrin and Coreg at home. PHYSICAL EXAMINATION: GENERAL: He has been drinking and eating fairly well. He was unresponsive when he came in, now he is alert and talking quite slowly secondary to the Parkinson's, no acute distress. No acute changes in hearing or vision. No sore throat. No chest pain or shortness of breath. He feels uncomfortable thought and feels weak. No abdominal pain. VITAL SIGNS: He had a 102 temperature, and 102.3 in the hospital. Urine is quite dark. HEENT: Head is atraumatic and normocephalic. Extraocular muscles are intact. Pupils are equally reactive to light. He is very slow to talk secondary to his Parkinson's. His mouth is dry. NECK: Supple. HEART: Regular rate. Normal S1 and S2. LUNGS: Decreased breath sounds. Clear to auscultation. No wheezing. No rhonchi. No rales. ABDOMEN: Soft, nontender. Positive bowel sounds. EXTREMITIES: Very weak and stiff with no edema. NEUROLOGIC: He is alert. He understands what is going on. He is very slow to respond. He has got a very flat affect from Parkinson's. SKIN: Warm and dry. No rashes. No ulcers. He is here finally waking up from his unresponsiveness with UTI and dark urine and elevated leukocytosis, little dehydrated, and urinary tract infection. LABORATORY DATA: He had multiple test done; sodium 136, potassium 4.7, BUN 22, creatinine 1.4, GFR is within 50, sugar is 123, calcium 11.2, phosphorous 3.4, magnesium 1.9, total bilirubin is 1.1, AST is 17, ALT is 18, alkaline phosphatase is 66. Troponin-1 is less than 0.01. Total protein , and albumin 3.7. His urine is moderate blood, positive nitrites, and moderate bacteria. He has 7.43 pH. He has a white count of 13.3, hemoglobin is 12.9, hematocrit 39.2, and platelets are 110. He had a CAT scan of the head, which shows no acute intracranial hemorrhage, but old moderate chronic white matter ischemic changes, discrete chronic left posterior frontal infarct. Also, he had a chest x-ray, which showed cardiomegaly, no focal consolidation. He is here with 13.3 white count, temperature about 102.3, unresponsive. He has like a urosepsis picture. I will consult urology and infectious disease. He will be on aspirin, Coreg, Maxipime IV, IV fluids, and Tylenol. Hopefully, he will improve. I will check his labs tomorrow. Rambo Smith DO [facility]
[2016-10-15 07:48] LABS: MEAN CELL VOLUME 84.4 fL (80.0-105.0); MEAN CORPUSCULAR HEMOGLOBIN 26.7 pg (25.0-35.0); MEAN CORPUSCULAR HGB CONC 31.7 g/dl (31.0-37.0); MEAN PLATELET VOLUME 11.4 fl (7.0-11.0); RBC 4.49 10^6/uL (3.5-6.1); RED CELL DISTRIBUTION WIDTH 16.2 % (11.5-14.5); WHITE BLOOD COUNT 5.9 10^3/ul (4.5-11.0)
[2016-10-15 08:05] LABS: ALB/GLOB RATIO 1.1 (1.1-1.8); ALBUMIN 3.4 g/dL (3.0-4.8); ALT/SGPT 23 U/L (7-56); AST/SGOT 23 U/L (15-59); BLOOD UREA NITROGEN 19 mg/dL (7-21); GFR AFRICAN-AMERICAN > 60; GFR NON-AFRICAN AMERICAN 54
[2016-10-15] MEDS: Cefepime 1gm in NS 100ml 1 GM/100 ML BAG IVPB SCH (09:49)
[2016-10-15] MEDS: Sodium Chloride 0.9% 1,000 ML IV SCH (09:50)
[2016-10-15 09:54] VITALS: BP 121/65; PULSE 74
[2016-10-15 10:02] VITALS: TEMP 97.2; O2SAT 97
--- NOTE | 2016-10-15 16:41 | PN ---
DATE: 10/15/2016 SUBJECTIVE: The patient is in bed, in no acute distress, was seen early this morning in room 577, bed 1. The patient's is at the bedside. The patient's stay conditions are unchanged. PHYSICAL EXAMINATION VITAL SIGNS: Temperature is 97, blood pressure is 120/60, respiratory rate of 18, and a heart rate of 88. HEENT: Unremarkable. NECK: Supple. LUNGS: Decreased breath sounds. HEART: Normal S1 and S2. ABDOMEN: Soft and nontender. LABORATORY DATA: Reveals a white count down to 5.9. Chemistries are noted. Creatinine of 1.3 with a GFR of 54. Urinalysis is noted. Microbiology reveals there is Klebsiella pneumonia in the urine. The blood culture is of no growth. The Klebsiella is pansensitive, it is sensitive to ceftriaxone. ASSESSMENT AND PLAN: A 71-year-old male with sepsis with Klebsiella urinary tract as a source and hypertension. We will discontinue the Cefepime and switch to p.o. Vantin . Case discussed with the patient's at length this morning and this patient has Parkinson's, dementia and poor quality of life. Franki Turner MD
--- NOTE | 2016-10-15 17:41 | PN ---
DATE: SUBJECTIVE: I saw Mr. Delong be in bed with his family present. He is alert. He slept very well, he is starting to eat. He is on IV antibiotics, cefepime, aspirin, Coreg, IV fluids and Tylenol. He is being seen by Wound Care, Infectious Disease, and Urology. He is more alert than the other day. PHYSICAL EXAMINATION: VITAL SIGNS: He is still having a temperature of 100.8, pulse 74, blood pressure 121/65, respiratory rate 20, 96% saturation on room air. HEENT: Head atraumatic and normocephalic. The throat is moist. NECK: Supple. HEART: Regular rate. LUNGS: Decreased breath sounds, but clear. ABDOMEN: Soft. EXTREMITIES: No edema. LABORATORY DATA: The urine is full dark. He has a 5.9 white count, it came back down from 13 very nicely, hemoglobin 12, hematocrit 37.9, platelet is 84. Sodium 139, potassium is 4, BUN is 90, creatinine 1.3, 454, beta glucose is 82, calcium is 9. Total bilirubin 0.58. AST is 23 and ALT is 23. Alkaline phosphatase 57, troponin 0.01. Total protein 6.5 and his urine was positive. PLAN: He has been seen Infectious Disease. Urologist is pending. He has sepsis due to Gram-negative bacilli and urinary tract infection, hypertension, he has Parkinson's, dementia, continue with IV antibiotics. I am hoping get him to TCU tomorrow for IV antibiotics, IV fluids, physical therapy before he goes home. Rambo Smith DO [facility]
[2016-10-15] MEDS ORDERED: Cefpodoxime (Vantin) 200 mg Tab PO SCH (22:00)
--- NOTE | 2016-10-16 06:28 | CON ---
DATE: 10/14/2016 CHIEF COMPLAINT: Change in mental status. HISTORY OF PRESENT ILLNESS: This is a 71-year-old male with a history of advanced Parkinson's disease. The patient has a history of urinary retention and his does catheterize him twice a day at home. She reports she has not been having difficulties. Over the last couple of days, his urine has been dark. She noticed that he was weak and lethargic and unable to walk which he usually is able to with a walker. He was brought to the emergency room as this was an acute change in his status. In the emergency room a Do catheter was placed which is in place at this point. A urology consultation was requested. PAST MEDICAL HISTORY: Significant for: 1. End stage Parkinson's disease. 2. Mild dementia. 3. Kidney stones. 4. Hypertension. 5. Arrythmias. 6. Anemia. 7. Arthritis. 8. Depression. MEDICATIONS: Include: 1. Aspirin. 2. Coreg. 3. Maxipime. 4. IV fluids. 5. Tylenol. 6. Vantin. ALLERGIES: NO KNOWN DRUG ALLERGIES. FAMILY HISTORY: Noncontributory. SOCIAL HISTORY: Positive for smoking in the past. No current smoking or ETOH use. REVIEW OF SYSTEMS: Review of systems is obtained from the patient's . They are as per the history of present illness. PHYSICAL EXAMINATION: GENERAL: The patient is awake and answering some questions. He is in no acute distress. VITAL SIGNS: He is afebrile with temperature of 97.6, BP 118/67, respirations were 20, and pulse of 76. NECK: Supple. No mass or adenopathy noted. CHEST: Revealed normal inspiratory effort. CARDIAC: Showed positive S1 and S2. There is no peripheral edema noted. ABDOMEN: The abdomen was soft, nontender and nondistended. There was no hepatosplenomegaly noted. GENITOURINARY: Phallus is normal. There is a Do catheter in place which is draining clear colored urine. Scrotum is normal. Testes are bilaterally distended, nontender, no masses. Epididymis are normal. LABORATORY DATA: The patient had WBC count of 13.3 yesterday. Creatinine of 1.4 with GFR of 50. Urinalysis showed positive nitrites, too numerous to count WBC's, 0 to 2 RBC's. No pertinent imaging studies were done. IMPRESSION: This is a 71-year-old male with a history of end-stage Parkinson's and history of urinary retention. Urologically, the patient is currently stable with the indwelling Do catheter. It is possible that the patient has urosepsis or possibly severe urinary tract infection which has worsened his mental status and parkinsonian symptoms. PLAN: Will be to treat patient with IV fluids and IV antibiotics and awaiting results of his cultures. I would leave the Do catheter in place at this time. When patient's condition has improved and he is going to go home, a Do can be removed and his can resume intermittent catheterization. Unfortunately, this may happen from time to time given the intermittent catheterization; although, I discussed the protocols with his and she appears to be doing an excellent job with his at home care. From a Urology standpoint, patient can be discharged home when medically improved and the Do will be removed and she will resume catheterization. Thank you for allowing to participate in the care of this patient. We will follow him with you. Tank Aguillon MD
== END 2016-10-15 17:52 | disposition home or self-care (01) | DRG 872 ==
LOC: ED 12:02 → ERH 15:33 → 5RSO 16:28
PROVIDERS: ADMIT Family Medicine; ATTEND Family Medicine
DX: A41.59 Other Gram-negative sepsis (principal); F03.90 Unspecified dementia, unspecified severity, without behavioral disturbance, psychotic disturbance, mood disturbance, and anxiety; G20 Parkinson's disease; I11.9 Hypertensive heart disease without heart failure; N39.0 Urinary tract infection, site not specified; E86.0 Dehydration; Z74.01 Bed confinement status; Z95.810 Presence of automatic (implantable) cardiac defibrillator; Z87.442 Personal history of urinary calculi; R32 Unspecified urinary incontinence; M19.90 Unspecified osteoarthritis, unspecified site; F32.9 Major depressive disorder, single episode, unspecified; D64.9 Anemia, unspecified; Z96.642 Presence of left artificial hip joint; Z87.891 Personal history of nicotine dependence; Z79.82 Long term (current) use of aspirin; I49.9 Cardiac arrhythmia, unspecified; Z79.899 Other long term (current) drug therapy; H26.9 Unspecified cataract; B96.1 Klebsiella pneumoniae [K. pneumoniae] as the cause of diseases classified elsewhere

== ENCOUNTER 2017-08-25 11:08 | Inpatient (IN) | payer MEDICARE, BC ==
[2017-08-25] MEDS ORDERED: Sodium Chloride 0.9% 1,000 ML IV SCH (11:45)
--- NOTE | 2017-08-25 11:47 | ED PDOC ---
Arrival/HPI - General Chief Complaint: Male Genitourinary Time Seen by Provider: 08/25/17 11:17 Historian: Patient - History of Present Illness Narrative History of Present Illness (Text): 08/25/17 11:42 72 year old male, whose past medical history includes advanced Parkinson's disease, who presents to the emergency department with complaining of foul smelling and bloody urine for 2 days. Patient's states the patient is usually able to ambulate with a walker and is more awake but patient hasn't gotten out of bed for 2 days. Patient's caths patient twice a day. Patient denies any fever, chills, chest pain, shortness of breath, nausea, vomiting, diarrhea, urinary symptoms, back pain, neck pain, headache, dizziness, or any other complaints. Time/Duration: < week (2 days) Symptom Onset: Sudden Symptom Course: Unchanged Activities at Onset: Light Context: Home Past Medical History - Provider Review Nursing Documentation Reviewed: Yes - Infectious Disease Hx of Infectious Diseases: None - Tetanus Immunization Tetanus Immunization: Unknown - Cardiac Hx Cardiac Disorders: Yes Hx Hypertension: Yes - Pulmonary Hx Respiratory Disorders: No - Neurological Hx Dementia: Yes Hx Parkinson's Disease: Yes - HEENT Hx Cataracts: Yes - Renal Hx Kidney Stones: Yes - Endocrine/Metabolic Hx Endocrine Disorders: No - Hematological/Oncological Hx Anemia: Yes - Integumentary Hx Dermatological Disorder: No - Musculoskeletal/Rheumatological Hx Arthritis: Yes - Genitourinary/Gynecological Hx Incontinence: Yes - Psychiatric Hx Depression: Yes Hx Emotional Abuse: No Hx Physical Abuse: No Hx Substance Use: No - Past Surgical History Past Surgical History: Unable to Obtain - Surgical History Hx Joint Replacement: Yes (L HIP) Hx Orthopedic Surgery: Yes (left hip orif, L femur) - Anesthesia Hx Anesthesia Reactions: No (unknown) Hx Malignant Hyperthermia: No (unknown) - Suicidal Assessment Feels Threatened In Home Enviroment: No Family/Social History - Physician Review Nursing Documentation Reviewed: Yes Family/Social History: Unknown Family HX Smoking Status: Former Smoker Hx Alcohol Use: No Hx Substance Use: No Hx Substance Use Treatment: No Allergies/Home Meds Allergies/Adverse Reactions: Allergies No Known Allergies Allergy (Verified 08/28/17 15:07) Home Medications: Home Meds Medication Instructions Recorded Confirmed Aspirin [Ecotrin] 81 mg PO DAILY 09/13/16 08/28/17 Carvedilol [Coreg] 12.5 mg PO BID 09/13/16 08/28/17 Review of Systems - Physician Review All systems were reviewed & negative as marked: Yes - Review of Systems Constitutional: Normal Eyes: Normal ENT: Normal Respiratory: Normal. absent: SOB, Cough Cardiovascular: Normal. absent: Chest Pain Gastrointestinal: Normal. absent: Abdominal Pain, Diarrhea, Nausea, Vomiting Genitourinary Male: Hematuria, Other (foul odor to urine) Musculoskeletal: Normal. absent: Back Pain, Neck Pain Skin: Normal. absent: Rash Neurological: Normal. absent: Headache Endocrine: Normal Hemo/Lymphatic: Normal Psychiatric: Normal Physical Exam Vital Signs Reviewed: Yes Vital Signs Temp Pulse Resp BP Pulse Ox 08/25/17 14:41 88 17 118/70 97 08/25/17 13:21 94 H 18 117/63 99 08/25/17 11:19 97.6 F 89 18 112/51 L 97 Temperature: Afebrile Blood Pressure: Hypotensive Pulse: Regular Respiratory Rate: Normal Appearance: Positive for: Well-Appearing, Non-Toxic, Comfortable Pain Distress: None Mental Status: Positive for: Alert and Oriented X 3 - Systems Exam Head: Present: Atraumatic, Normocephalic Pupils: Present: PERRL Extroacular Muscles: Present: EOMI Conjunctiva: Present: Normal Mouth: Present: Moist Mucous Membranes Neck: Present: Normal Range of Motion. No: Meningeal Signs, MIDLINE TENDERNESS , Paraspinal Tenderness, JVD Respiratory/Chest: Present: Clear to Auscultation, Good Air Exchange. No: Respiratory Distress, Accessory Muscle Use Cardiovascular: Present: Regular Rate and Rhythm, Normal S1, S2. No: Murmurs Abdomen: No: Tenderness, Distention, Peritoneal Signs Back: Present: Normal Inspection. No: CVA Tenderness, Midline Tenderness Upper Extremity: Present: Normal Inspection. No: Cyanosis, Edema Lower Extremity: Present: Normal Inspection. No: Edema Neurological: Present: GCS=15, CN II-XII Intact, Speech Normal, Other (tremor) Skin: Present: Warm, Dry, Normal Color. No: Rashes Psychiatric: Present: Alert, Other (doesn't interact with doctor,only ) Medical Decision Making ED Course and Treatment: 08/25/17 11:50 Impression: 72 year old male who presents to the emergency department with , complaining of foul smelling, bloody urine. Plan: -- VBG -- Labs -- Sodium Chloride -- Blood Culture -- Urine Culture -- Urinalysis -- Reassess and disposition Prior Visit: Patient was last seen in the emergency department on 10/13/16 for similar symptoms. Patient was admitted to the hospital for a UTI. Progress Notes: 08/25/17 13:03 Patient's UTI and AMS symptoms determine urosepsis. Pt given 2g of Rocephin. Case discussed with Dr. Smith, who is aware and agrees with plan. Accepts pt for hospital admission. - Lab Interpretations Microbiology Results: Microbiology Results 08/25/17 12:00 Blood-Venous Blood Culture - Preliminary NO GROWTH AFTER 3 DAYS 08/25/17 12:20 Urine,Clean Catch Urine Culture - Final Klebsiella Pneumoniae Ssp Pneu Lab Results: 08/25/17 12:00 08/25/17 12:50 Lab Results 08/25/17 12:50: Sodium 145, Chloride 109 H, Potassium 4.6, Carbon Dioxide 24, Anion Gap 17, BUN 22 H, Creatinine 1.5, Est GFR ( Amer) 55, Est GFR (Non- Af Amer) 46, Random Glucose 83, Calcium 8.6, Total Bilirubin 0.5, AST 36, ALT 40 , Alkaline Phosphatase 80, Total Protein 6.3, Albumin 3.4, Globulin 3.0, Albumin /Globulin Ratio 1.1 08/25/17 12:50: PT 13.5 H, INR 1.17 H 08/25/17 12:20: Urine Color Yellow, Urine Appearance Cloudy, Urine pH 6.0, Ur Specific [place] >= 1.030, Urine Protein 100 H, Urine Glucose (UA) Negative, Urine Ketones Trace H, Urine Blood Large H, Urine Nitrate Positive H, Urine Bilirubin Negative, Urine Urobilinogen 0.2, Ur Leukocyte Esterase Large H, Urine RBC 20 - 25, Urine WBC Tntc, Ur Epithelial Cells 3 - 4, Urine Bacteria Small 08/25/17 12:00: pO2 51, VBG pH 7.36, VBG pCO2 48.0, VBG HCO3 27.1, VBG Total CO2 28.6 H, VBG O2 Sat (Calc) 86.8 H, VBG Base Excess 1.0, VBG Potassium 5.6 H, Sodium 138.0, Chloride 108.0 H, Glucose 85, Lactate 0.9, FiO2 21.0, Venous Blood Potassium 5.6 H 08/25/17 12:00: WBC 12.3 H D, RBC 4.32, Hgb 11.8 L, Hct 36.0 L, MCV 83.3, MCH 27.3, MCHC 32.8, RDW 15.4 H, Plt Count 149, MPV 11.6 H, Gran % 90.2 H, Lymph % ( Auto) 3.7 L, [place] % (Auto) 5.2, Eos % (Auto) 0.8 L, Baso % (Auto) 0.1, Gran # 11.10 H, Lymph # (Auto) 0.5 L, Slope # (Auto) 0.6, Eos # (Auto) 0.1, Baso # (Auto ) 0.01, Neutrophils % (Manual) 87 H, Lymphocytes % (Manual) 7 L, Monocytes % ( Manual) 6, Platelet Evaluation Normal - Medication Orders Current Medication Orders: Discontinued Medications Acetaminophen (Tylenol 325mg Tab) 650 mg PO Q4H PRN PRN Reason: Pain, moderate (4-7) Last Admin: 08/26/17 18:52 Dose: 650 mg MAR Pain/Vitals Document 08/26/17 18:52 CV (Rec: 08/26/17 18:52 CV [id number]) Pain Reassessment Is This A Pain ReAssessment? No Sleep Is patient sleeping during reassessment? No Presence of Pain Presence of Pain Yes Acetylcysteine (Mucomyst 20% Inhal [place] (30ml)) 3 ml PO BID BERONICA Acetylcysteine (Acetylcysteine 20%) 3 ml IH BID BERONICA Acetylcysteine (Acetylcysteine 20%) 3 ml IH .EXTRA DOSE ONE Stop: 08/28/17 09:01 Acetylcysteine (Acetylcysteine 20%) 3 ml PO .EXTRA DOSE ONE Stop: 08/28/17 09:01 Acetylcysteine (Acetylcysteine 20%) 3 ml PO BID [facility] Arformoterol Tartrate (Brovana) 15 mcg IH [id number] [facility] Aspirin (Ecotrin) 81 mg PO DAILY [facility] Last Admin: 08/28/17 09:37 Dose: 81 mg Carvedilol (Coreg) 12.5 mg PO BID [facility] Last Admin: 08/28/17 09:37 Dose: 12.5 mg MAR Pulse and Blood Pressure Document 08/28/17 09:37 TAV (Rec: 08/28/17 09:38 TAV [id number]) Pulse Pulse Rate (60-90) 85 Blood Pressure Blood Pressure (100/60-150/90) 115/62 Sodium Chloride (Sodium Chloride 0.9%) 1,000 mls @ 100 mls/hr IV .Q10H [facility] Last Admin: 08/25/17 12:29 Dose: 100 mls/hr eMAR Start Stop Document 08/25/17 12:29 SF (Rec: 08/25/17 12:29 SF [email or web address]) Intravenous Solution Start Date 08/25/17 Start Time 11:45 Ceftriaxone Sodium (Rocephin 2 Gm Ivpb) 2 gm in 100 mls @ 100 mls/hr IVPB STAT STA PRN Reason: Protocol Stop: 08/25/17 13:57 Last Admin: 08/25/17 14:15 Dose: 100 mls/hr eMAR Start Stop Document 08/25/17 14:15 SF (Rec: 08/25/17 14:29 SF [email or web address]) Intravenous Solution Start Date 08/25/17 Start Time 14:15 End Date 08/25/17 End time 15:15 Total Infusion Time 60 Sodium Chloride (Sodium Chloride 0.45%) 1,000 mls @ 60 mls/hr IV .[id number] [facility] Last Admin: 08/28/17 06:24 Dose: 60 mls/hr eMAR Start Stop Document 08/28/17 06:24 PCO (Rec: 08/28/17 06:24 PCO [id number]) Intravenous Solution Start Date 08/28/17 Start Time 06:24 End Date 08/28/17 End time 21:00 Total Infusion Time 876 Ceftriaxone Sodium (Rocephin 1 Gram Ivpb) 1 gm in 100 mls @ 100 mls/hr IVPB DAILY BERONICA PRN Reason: Protocol Last Admin: 08/26/17 10:36 Dose: 100 mls/hr eMAR Start Stop Document 08/26/17 10:36 CV (Rec: 08/26/17 10:37 CV [id number]) Intravenous Solution Start Date 08/26/17 Start Time 10:37 Meropenem (Merrem Iv 1 Gm Premix) 50 mls @ 100 mls/hr IVPB Q12 BERONICA PRN Reason: Protocol Stop: 09/03/17 22:01 Last Admin: 08/27/17 21:58 Dose: 100 mls/hr eMAR Start Stop Document 08/27/17 21:58 PCO (Rec: 08/27/17 21:58 PCO [id number]) Intravenous Solution Start Date 08/27/17 Start Time 21:58 End Date 08/27/17 End time 22:35 Total Infusion Time 37 Cefazolin Sodium (Ancef 1gm In Ns) 1 gm in 100 mls @ 100 mls/hr IVPB Q8 BERONICA PRN Reason: Protocol Last Admin: 08/28/17 13:06 Dose: 100 mls/hr eMAR Start Stop Document 08/28/17 13:06 TAV (Rec: 08/28/17 13:06 TAV [id number]) Intravenous Solution Start Date 08/28/17 Start Time 13:06 End Date 08/28/17 End time 14:05 Total Infusion Time 59 Lorazepam (Ativan) 0.5 mg PO HS BERONICA PRN Reason: Protocol Last Admin: 08/27/17 21:58 Dose: 0.5 mg Behavioural Document 08/27/17 21:58 PCO (Rec: 08/27/17 21:58 PCO [id number]) Maintenance Maintenance Dose Yes Nonmedicinal Nonmedicinal Interventions Redirect Behavior Behavior for Medication: Anxiety Pneumococcal Polyvalent Vaccine (Pneumovax 23 Vaccine) 0.5 ml IM .ONCE ONE Stop: 08/25/17 17:32 - Scribe Statement The provider has reviewed the documentation as recorded by the Scribmaggi Johns All medical record entries made by the Scribe were at my direction and personally dictated by me. I have reviewed the chart and agree that the record accurately reflects my personal performance of the history, physical exam, medical decision making, and the department course for this patient. I have also personally directed, reviewed, and agree with the discharge instructions and disposition. Disposition/Present on Arrival - Present on Arrival Any Indicators Present on Arrival: No History of DVT/PE: No History of Uncontrolled Diabetes: No Urinary Catheter: No History of Decub. Ulcer: No History Surgical Site Infection Following: None - Disposition Have Diagnosis and Disposition been Completed?: Yes Diagnosis: Altered mental status, Generalized weakness, UTI (urinary tract infection), Parkinson's disease Disposition: HOSPITALIZED Disposition Time: 13:02 Patient Plan: Admission Condition: FAIR
[2017-08-25 12:06] LABS: VENOUS BLOOD GAS PO2 51 mm/Hg (30-55); VENOUS BLOOD PH 7.36 (7.32-7.43)
[2017-08-25 12:10] LABS: BASO # 0.01 K/mm3 (0.0-2.0); BASO % 0.1 % (0.0-3.0); EOS # 0.1 (0.0-0.7); EOS % 0.8 % (1.5-5.0); GRAN % 90.2 % (50.0-68.0); HEMOGLOBIN 11.8 g/dL (14.0-18.0); LYMPH # 0.5 (1.2-3.4); LYMPH % 3.7 % (22.0-35.0); MEAN CELL VOLUME 83.3 fl (80.0-105.0); MEAN CORPUSCULAR HEMOGLOBIN 27.3 pg (25.0-35.0); MEAN CORPUSCULAR HGB CONC 32.8 g/dl (31.0-37.0); MEAN PLATELET VOLUME 11.6 fl (7.0-11.0); MONO # 0.6 (0.1-0.6); MONO % 5.2 % (1.0-6.0); PLATELET COUNT 149 10^3/uL (120.0-450.0); RBC 4.32 10^6/uL (3.5-6.1); RED CELL DISTRIBUTION WIDTH 15.4 % (11.5-14.5); WHITE BLOOD COUNT 12.3 10^3/ul (4.5-11.0)
[2017-08-25 12:36] LABS: URINE APPEARANCE CLOUDY (CLEAR); URINE BILIRUBIN NEGATIVE (NEGATIVE); URINE BLOOD LARGE (NEGATIVE); URINE COLOR YELLOW (YELLOW); URINE GLUCOSE (UA) NEGATIVE (NEGATIVE); URINE LEUKOCYTE ESTERASE LARGE Leu/uL (NEGATIVE); URINE PROTEIN 100 mg/dL (<30 mg/dL); URINE UROBILINOGEN 0.2 E.U./dL (<1 E.U./dL)
[2017-08-25] MEDS ORDERED: cefTRIAXone 2 GM IN NS 2 GM/100 ML BAG IVPB STA (12:58)
[2017-08-25 13:09] LABS: INR 1.17 (0.93-1.08); PROTHROMBIN TIME 13.5 SECONDS (9.4-12.5)
[2017-08-25 13:09] LABS: URINE BACTERIA SMALL (NEG); URINE RBC 20 - 25 /hpf (0-2); URINE WBC TNTC /hpf (0-6)
[2017-08-25 13:10] LABS: ALB/GLOB RATIO 1.1 (1.1-1.8); ALBUMIN 3.4 g/dL (3.0-4.8); CALCIUM 8.6 mg/dL (8.4-10.5)
[2017-08-25 13:39] LABS: LYMPHOCYTE 7 % (22.0-35.0); MONOCYTE 6 % (1.0-6.0); NEUTROPHIL 87 % (50.0-70.0); PLATELET ESTIMATE NORMAL (NORMAL)
[2017-08-25 17:30] VITALS: BMI 20.1
[2017-08-25] MEDS ORDERED: Pneumococcal 23-Valent Vaccine IM ONE (17:31)
[2017-08-26 07:39] LABS: HEMOGLOBIN 11.7 g/dL (14.0-18.0); MEAN CELL VOLUME 83.1 fl (80.0-105.0); MEAN CORPUSCULAR HEMOGLOBIN 27.1 pg (25.0-35.0); MEAN CORPUSCULAR HGB CONC 32.7 g/dl (31.0-37.0); RBC 4.31 10^6/uL (3.5-6.1); RED CELL DISTRIBUTION WIDTH 15.2 % (11.5-14.5); WHITE BLOOD COUNT 11.2 10^3/ul (4.5-11.0)
[2017-08-26 07:56] LABS: ALB/GLOB RATIO 1.2 (1.1-1.8); ALBUMIN 3.6 g/dL (3.0-4.8); CALCIUM 8.7 mg/dL (8.4-10.5)
--- NOTE | 2017-08-26 08:51 | HP ---
DATE OF EXAM: 08/25/2017 HISTORY OF PRESENT ILLNESS: I did a house call on Millie Delong about a week or so ago, met his who takes care of him. He is a nice 72-year-old white male who presents with a history of Parkinson disease, bedridden. He is now on comfort care hospice, but the said he had some foul-smelling bloody urine for 2 days. He was on Bactrim or Vantin; she was not sure which one antibiotics at home. It did not get better. He usually ambulates with a walker at home, but he could not get out of bed for 2 days. The also catheterized him twice a day and he has been very agitated and not himself, so she brought him to the emergency room. With the sudden change, she is quite concerned. She wants an evaluation with the urologist. PAST MEDICAL HISTORY: Parkinson disease, hypertension, dementia, cataracts, kidney stones, arthritis, urinary incontinence. He gets catheterized by his twice a day. He had left hip joint replacement and left hip ORIF. FAMILY HISTORY: Unknown family history. SOCIAL HISTORY: Former smoker. No alcohol, no drugs. ALLERGIES: NO KNOWN DRUG ALLERGIES. MEDICATIONS: Aspirins, he takes Ecotrin, and Coreg on a regular basis. REVIEW OF SYSTEMS: He has agitation. He has foul smelling, yellow, pus colored urine with blood. No acute vision or hearing changes. No sore throat. No chest pain or palpitations. No shortness of breath or cough. No abdominal pain, nausea, vomiting or diarrhea. No back pain. Mildly contracted lower extremities. No apparent rashes or ulcers that she told me about, the . No headaches. He is alert, looking at me. PHYSICAL EXAMINATION: GENERAL: He is alert, looking at me. He is nontoxic, fairly comfortable, well appearing. Alert and oriented x3. VITAL SIGNS: He has 97.6 temp, 89 pulse, 18 respiratory rate, 112/51 blood pressure, 97% O2 sat on room air. HEENT: Head is atraumatic, normocephalic. Extraocular muscles are intact. Pupils equal and reactive to light. Throat is dry. NECK: Supple. HEART: Regular rate. Normal S1, S2. LUNGS: Decreased breath sounds. Poor inspiration, but clear to auscultation bilaterally. No wheezes, rhonchi or rales. ABDOMEN: Soft, nontender. Positive bowel sounds. No guarding, no rebound, no CVA tenderness. EXTREMITIES: Mildly contracted, no edema. GENITOURINARY: He has a Do catheter in, draining very discolored, almost not pus you could tell there was a lot of sediment in the urine, not as yellow as it should be. NEUROLOGIC: GCS is 15. Cranial nerves II through XII grossly intact. He looks at me, tried to talk as briefly, at his baseline. SKIN: Warm and dry. LABORATORY DATA: He has a urine that has 100 of protein, he has got large blood, positive nitrites, large leukocytes, too numerous to count white cells and bacteria. 145 sodium, potassium 4.6, BUN 22, creatinine 1.5, GFR is 46, sugar is 83, calcium 8.6, total bili is 0.5. AST is 36, ALT is 40, alk phos 80. Total protein is 6.3, albumin is 3.4. A 12.3 white count, elevated; 11.8 hemoglobin, 36 hematocrit with a 149 platelets. ASSESSMENT AND PLAN: He is here for urinary tract infection with agitation, failed outpatient treatment with either Vantin or Bactrim she could not remember. We will put him back on his medications, give him IV fluids, give him Rocephin. Will get Infectious Disease consult, Urology and Neurology. Hopefully, we will get him fixed up quickly, if feeling better, change him to oral antibiotics and eventually home on hospice again if that is their choice. He is here for urinary tract infection, change in mentation, agitation, Parkinson's and history of hypertension. Rambo Smith DO K[facility]
[2017-08-26] MEDS ORDERED: cefTRIAXone 1 gm 1 GM/100 ML BAG IVPB SCH (10:00)
--- NOTE | 2017-08-26 12:54 | PN ---
DATE: 08/26/2017 SUBJECTIVE: He is resting comfortably in bed. His is at bedside. He is on IV fluids. He had Ativan last night at bedtime that helped him sleep. He did well and was on Coreg, Ecotrin, and ceftriaxone. OBJECTIVE: VITAL SIGNS: He has a 99 temperature, 92 pulse, 127/62 blood pressure, 20 respiratory rate, 94% O2 sat on room air. HEENT: Head is atraumatic, normocephalic. HEART: Regular rate. LUNGS: Decreased breath sounds, but clear. ABDOMEN: Soft. EXTREMITIES: No edema. NEUROLOGIC: He is not talking much this morning. He does have dementia. LABORATORY DATA: He has 141 sodium; potassium 4.6; BUN is 18; creatinine 1.5, better. GFR is 46, sugar is 81, calcium is 8.7, total bili is 0.4, AST is 39, ALT is 44, alk phos 99, total protein 6.4. White count is down to 11.2, hemoglobin 11.7, hematocrit 35.8, platelets 138. INR is 1.17. ASSESSMENT AND PLAN: We will continue with the Rocephin and the IV fluids. We will check his labs tomorrow. He has a consult with Infectious Disease, Neurology, and Urology. When I can, I will get him back home, possibly back under hospice. He is here for urinary tract infection, change in mentation, Parkinson's, and debility to walk. We will see what physical therapy has to say. Rambo Smith DO
[2017-08-26] MEDS: Sodium Chloride 0.45% 1,000 ML IV SCH (13:12)
--- NOTE | 2017-08-26 15:16 | RAD ---
HISTORY: congestion COMPARISON: 10/13/2016 TECHNIQUE: Chest PA and lateral FINDINGS: LUNGS: No active pulmonary disease. PLEURA: No significant pleural effusion identified. No pneumothorax apparent. CARDIOVASCULAR: Moderate cardiomegaly. Single lead pacemaker OSSEOUS STRUCTURES: No significant abnormalities. VISUALIZED UPPER ABDOMEN: Normal. OTHER FINDINGS: Single lead pacemaker IMPRESSION: No active disease.
--- NOTE | 2017-08-26 21:01 | CON ---
DATE: 08/26/2017 NEUROLOGY CONSULTATION CHIEF COMPLAINT: Medication for Parkinson. 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 He gets catheterized by his twice a day, has a history of left hip joint replacement and left hip ORIF, was currently brought in for generalized weakness and found to have foul-smelly urine for 2 days, found to have urinary tract infection, gram negative and was on antibiotics, was consulted to evaluate for his Parkinson medication. He Stalevo by Dr. Begrer in the past, but was tapered off by another neurologist as an outpatient and was placed on vitamins for Parkinson disease. Currently, he is having worsening gait and he uses a walker. He is increasingly stiff throughout and rigid and is debilitated from his underlying UTI and is very deconditioned. I explained to the that it is best to place him back on Sinemet as an outpatient, but for now we will hold off until his UTI is treated and he is rehabilitated slightly. PAST MEDICAL HISTORY: As above. FAMILY HISTORY: Noncontributory. SOCIAL HISTORY: No illicit drug use, smoking, or EtOH abuse. ALLERGIES: NO KNOWN DRUG ALLERGIES. MEDICATIONS: Reviewed by nurse per reconciliation sheet. REVIEW OF SYSTEMS: A 14-point review of systems is negative except as per the HPI. LABORATORY DATA: Sodium is 141, potassium 4.6, chloride 108, carbon dioxide of 22, BUN of 18, creatinine of 1.5, random glucose of 81. UA is gram-negative, positive for UTI. PHYSICAL EXAMINATION: GENERAL: Patient is seen lying in in bed in a crossed position. He is alert, nontoxic, very comfortable appearing. Alert and oriented to person and place. VITAL SIGNS: Temperature 97.9, pulse rate of 85, blood pressure of 125/72, respirations 16, oxygen saturation 95% on room air. HEENT: Atraumatic, normocephalic. PERRLA. Extraocular muscles intact. NECK: Supple. No JVD. No adenopathy noted. LUNGS: Decreased breath sounds bilaterally. HEART: S1 and S2. Normal rate and rhythm. No murmurs, rubs, or gallops. ABDOMEN: Soft, nontender, nondistended. Bowel sounds are present. EXTREMITIES: Mildly contracted, no edema. NEUROLOGIC: Patient is alert and oriented to person and place. Recall after 5 minutes is 0/3. Poor attention span. Slow thought process. Speech is hypophonic. Cranial nerves II through XII are intact. Motor exam: He has decreased tone throughout. Cogwheel rigidity at the wrist. Slightly more contracted and rigid on the right when compared to the left. Sensory exam: Withdraws to localized, noxious stimulus. DTRs are 2+ throughout, 1 at the ankles. Coordination: Gait is deferred for now. ASSESSMENT AND PLAN: 1. This is a 72-year-old man with history of left hip joint replacement and left hip open reduction and internal fixation, arthritis, urinary incontinence being catheterized by his twice a day, Parkinson disease, Parkinson-induced cognitive impairment/dementia, hypertension, and cataracts; who presents for deconditioned state and foul-smelling urine, found to have urinary tract infection growing gram-negative rods, on antibiotics. I was consulted for Parkinson's disease medications at this time. Given his underlying debilitated state and worsening Parkinson's, we will place him on Sinemet 25/100 t.i.d. as an outpatient and hold for now. Once he is stabilized from his urinary tract infection, rehabilitate him. 2. Recommend PT/OT evaluation. 3. Monitor electrolytes and correct accordingly. 4. Keep his blood pressures between 130's to 140's systolic and diastolic 70's to 80's. 5. Recommend acute to subacute rehab. Farhan Loving MD
[2017-08-26] MEDS: Meropenem IV 1 gm in NS 50 ML IVPB SCH (21:12)
--- NOTE | 2017-08-27 06:04 | CON ---
DATE: 08/26/2017 LOCATION: The patient is seen earlier today in room 574, bed 1. CHIEF COMPLAINTS: Weakness, change in mental status since 1-day duration. HISTORY OF PRESENT ILLNESS: This is a 72-year-old male with a history of end-stage Parkinson disease and dementia, hypertension, cataracts, history of AICD and a pacemaker, history of left hip surgery and nephrolithiasis. Patient's states that he had change in mental status, he was behaving differently and he gets intermittent urinary catheterization twice daily, noticed there is foul and cloudy urine for past 2 days. Usually, the patient ambulates with a walker, more awake. She states there is a change in his mental status. No fevers, no chills. REVIEW OF SYSTEMS: A 12-point review of systems is noted. No fevers. No chills. No shortness of breath. No nausea, vomiting or diarrhea. No chest pain. No headaches or blurred vision. No neck pain. PAST MEDICAL HISTORY: Significant for advanced end-stage Parkinson disease, dementia, hypertension, cataract and nephrolithiasis. PAST SURGICAL HISTORY: Left hip surgery, AICD and pacemaker. ALLERGIES: THE PATIENT HAS NO KNOWN ALLERGIES. MEDICATIONS AT HOME: Include Coreg and aspirin. PHYSICAL EXAMINATION: GENERAL: The patient is in bed. VITAL SIGNS: Temperature of 97.6, it was up to 99; pulse of 90, it was up to 94; respiratory rate of 20, blood pressure is 130/60 and O2 saturation is 94% on room air. HEENT: Unremarkable. NECK: Supple. LUNGS: Have decreased breath sounds. HEART: Normal S1, S2. ABDOMEN: Soft, nontender. No rebound, no guarding. LABORATORY EXAMINATION: Reveals a white count of 4300, hemoglobin of 11, platelets of 149 and coagulation is noted. Chemistries reveal a BUN of 25, creatinine of 1.5. Patient has had chronic renal disease. Urinalysis revealed the patient has large leukocyte esterase, wbc's too numerous to count and positive nitrites. Microbiology reveals a gram-negative narciso in the urine. The blood cultures are no growth. Review of orders reveals the patient is on ceftriaxone. ASSESSMENT AND PLAN: A 72-year-old male with end-stage Parkinson disease, dementia, hypertension, cataracts, renal disease, nephrolithiasis, kidney disease, anxiety, depression, whose does intermittent urinary catheters twice daily, noticed change in mental status, cloudy foul odorous urine. Patient had tachycardia, dyspnea, leukocytosis and positive urine culture now. The patient also had hypoxia with severe sepsis with gram-negative narciso. The urine culture as the source. We will treat the patient with meropenem. We will check on the final blood culture results and check on the identification of the gram-negative narciso in the urine. We will make further recommendations upon availability of initial results. Case discussed with the patient's at length. Franki Turner MD
[2017-08-27 07:21] LABS: HEMOGLOBIN 11.7 g/dL (14.0-18.0); MEAN CELL VOLUME 82.1 fl (80.0-105.0); MEAN CORPUSCULAR HEMOGLOBIN 26.5 pg (25.0-35.0); MEAN CORPUSCULAR HGB CONC 32.3 g/dl (31.0-37.0); MEAN PLATELET VOLUME 11.2 fl (7.0-11.0); RBC 4.41 10^6/uL (3.5-6.1); WHITE BLOOD COUNT 9.2 10^3/ul (4.5-11.0)
[2017-08-27 07:49] LABS: ALB/GLOB RATIO 1.1 (1.1-1.8); ALBUMIN 3.3 g/dL (3.0-4.8); CALCIUM 8.8 mg/dL (8.4-10.5)
[2017-08-27] MEDS: Meropenem IV 1 gm in NS 50 ML IVPB SCH ×2 (09:43→21:58)
--- NOTE | 2017-08-27 10:05 | PQF SEPSIS ---
This form is a permanent part of the medical record Clarification of your documentation is requested to better reflect the severity of illness and intensity of treatment of your patient. Indicators present Admitted w/ foul smelling urine, hx of being catheterized 2 x day by , + culture for Klebsiella UTI, ID notes Sepsis. Please clarify if you are treating " Sepsis dt catheter related UTI " [] Temp < 96.8 or > 100.4 [x] WBC count > 12,000/mm3 or <000/mm3 or 10% immature neutrophils [] Heart Rate > 90 [] Respiratory Rate > 20 [] Fever or hypothermia [] Chills [] Positive blood cultures [] Hypotension [] Metabolic acidosis (Elevated lactate level, anion gap or reduced blood pH) [x] Acute confusion /Altered Mental Status [] Shock [] Other: [] Location in the medical record that reflects the above clinical findings: [x] H& P Treatment Provided: [] PHYSICIAN'S RESPONSE Based on your medical judgment of the clinical indicators outlined above, are you treating this patient for a known or suspected: [] Sepsis / Septicemia Please specify organism if known [] [] SIRS (Systemic Inflammatory Response Syndrome) [] Severe Sepsis (Sepsis with Associated Organ Dysfunction) [] Fever of Unknown Origin [] Other, please indicate: [] [] If Unable to Determine, please check the box, sign and date. Present On Admission (POA) Indicator: [] Present at the time of admission [] Not present at the time of admission [] Clinically Undetermined In responding to this query, please exercise your independent professional judgment. The fact that a question is asked does not imply that any particular answer is desired or expected. Thank you for your clarification on this documentation. If you have any questions please call:[ ][phone] * Thank you, [ ]Cherie Ireland RN CDS offal roller K[facility]
--- NOTE | 2017-08-27 11:43 | PN ---
DATE: 08/27/2017 SUBJECTIVE: I saw him resting comfortably in bed. He is actually looking at me. He is more alert. Good spirits. I do think the medications are helping him. He is also weak. He needs to have Physical Therapy evaluation and discussion of either [facility], TCU or home with services. I am waiting that to take place. He is on Ativan, Coreg, Ecotrin, Merrem IV, IV fluids and Tylenol. PHYSICAL EXAMINATION: VITAL SIGNS: He has a 97.7 temp, 78 pulse, 142/75 blood pressure, 20 respiratory rate, 96% O2 sat on room air. GENERAL: He is much more alert today, looking at me, trying to talk, no acute distress. HEENT: Head is atraumatic, normocephalic. Throat is moist. NECK: Supple. HEART: Regular rate. LUNGS: Decreased breath sounds. EXTREMITIES: No edema. Mildly contracted, but he moves them. ABDOMEN: Soft, nontender. Positive bowel sounds. No guarding. No rebound. No CVA tenderness. MEDICATIONS: He is on Ativan, Coreg, Ecotrin, Merrem IV, IV fluids and Tylenol. LABORATORY DATA: He has a 9.2 white count, better; 11.7 hemoglobin; 36.2 hematocrit with 144 platelets. He has a 140 sodium, potassium 4.7, BUN 15, creatinine 1.4, GFR is 50, sugar is 87, calcium is 8.8, total bili is 0.4, AST is 32, ALT is 38, alk phos 89, total protein 6.2, albumin is 3.3. Large leukocytes and small bacteria. ASSESSMENT AND PLAN: He has a urinary tract infection, change in mentation and Parkinson's history. He is coming back mentally. I am hoping he can go tomorrow to subacute rehab or Transitional Care Unit possibly. Continued the IV Merrem. He is being seen by Infectious Disease and Neurology. Waiting for Urology to see him. He has not seen them yet, I am not sure why. Also waiting for Pulmonary to see him. I am not sure why Pulmonary did not see him yet. We will continue with the aggressive treatment and care on Millie Delong. Rambo Smith DO
--- NOTE | 2017-08-27 16:44 | CARD ---
APPROVED REPORT EKG Measurement Heart [id number] <Conclusion> Sinus rhythm with occasional premature ventricular complexes Left axis deviation Nonspecific intraventricular block T wave abnormality, consider inferolateral ischemia Abnormal ECG
--- NOTE | 2017-08-27 20:51 | CON ---
DATE: 08/27/2017 CHIEF COMPLAINT: Urinary infection. HISTORY OF PRESENT ILLNESS: This is a 72-year-old male who was seen in [facility]. The patient was seen by Dr. Smith. He has advanced Parkinson disease. He is bedridden and contracted. He is now on comfort care hospice. His does urinary catheterization on him two times daily. She noted that his urine was becoming foul-smelling and somewhat purulent. She thought she also saw some bloody urine. He was on oral antibiotics at the time, but his urine was not getting better. Patient had progressive weakness and not feeling well. He was becoming agitated. He was, therefore, transferred to the emergency room where then he was admitted. In the hospital, patient has had a Do catheter in place. It was draining some dark-colored urine. There was some question of it possibly getting pulled. It was then replaced and since that time, it has been draining well. consultation was requested regarding the above. PAST MEDICAL HISTORY: Significant for Parkinson's disease, dementia, hypertension, cataracts, kidney stones, arthritis, urinary incontinence, left hip replacement, and a left ORIF. MEDICATIONS: Currently include Ativan, Coreg, Ecotrin, Merrem, Tylenol, and IV fluids. He did receive Rocephin. ALLERGIES: NO KNOWN DRUG ALLERGIES. FAMILY HISTORY: Noncontributory for this admission. SOCIAL HISTORY: No smoking or EtOH use. On home hospice, being cared for by his . REVIEW OF SYSTEMS: Was obtained from patient's . They are as the history of present illness. There is some worsened lethargy and fatigue, some worsened agitation. He does have positive weakness, limited mobility from Parkinson's disease. Positive for dementia. She reports no chest pains or palpitations. No cough or shortness of breath. Other systems are negative. PHYSICAL EXAMINATION: GENERAL: Patient is awake, he is responsive although not answering questions. VITAL SIGNS: He is afebrile. Temperature of 97.7, pulse 78, BP 142/75, respirations 20. NECK: Supple. There is no obvious nodes or mass noted. CHEST: Reveals a normal inspiratory effort. CARDIAC: Shows positive S1, S2. There is no peripheral edema noted. ABDOMEN: The abdomen is soft. There is no obvious tenderness. There is no mass. There is no costovertebral angle tenderness. GENITOURINARY: The phallus is normal. There is a Do catheter in place, draining clear-colored urine. Scrotum is normal. Testes bilaterally descended, nontender, no masses. Epididymis are normal with no swelling or tenderness noted. EXTREMITIES: There is no cyanosis or edema noted. LABORATORY EXAMINATION: WBC count was 12.3 on admission; this has come down to 9.2. GFR of 50. Urinalysis showed positive nitrites, 20 to 25 rbc, [id number]-[id number]-count wbc's, positive for protein, negative for glucose. Urine culture grew Klebsiella pneumonia. Blood cultures were negative. Klebsiella was resistant to Bactrim. It is sensitive to Cipro. Negative ESBL. It is sensitive to meropenem. Radiologic exam, no pertinent urologic imaging was done. IMPRESSION AND PLAN: This is a 72-year-old male with advanced Parkinson's disease, urinary incontinence, and some question of urinary retention. Plan for now will be to continue Merrem for the Klebsiella urinary tract infection. When medically okay, patient can be discharged home on oral antibiotics. I discussed with his a plan to either maintain an indwelling Do where the Do catheter can be removed and she can continue catheterizing him two times daily as she has been doing this without difficulty. Patient's understands. She would rather not have the indwelling Do. Therefore, I would agree to have this removed the day prior to discharge and his can then begin catheterizing him again at that time. Thank you for allowing me to participate in the care of this patient. We will follow him with you. Tank Aguillon MD
--- NOTE | 2017-08-27 21:46 | CON ---
DATE: 08/27/2017 PULMONARY CONSULTATION We were asked by Dr. Smith, industrial organization manager to evaluate and treat this 72 years old patient who was admitted to [facility] with deterioration in his neurologic status as well as urinary tract infection, rule out urosepsis. The patient is non-communicative. The history was obtained from . It appears that the patient was taken off his Parkinson's medication and was treated only with vitamins. He was seen by Dr. Loving, neurologist and who stated that he needs to go back on Parkinson's medication because his mobility is very poor and he is stiff. HISTORY OF PRESENT ILLNESS: The patient has a history of Parkinson disease and dementia, hypertension, AICD and pacemaker, history of left hip surgery, and nephrolithiasis. The patient is on intermittent urinary catheterization. A foul smelling urine was noted in the last 2 days and in the last 24 hours, there was a change in mental status. REVIEW OF SYSTEMS: Review of systems was conducted by reviewing all sources. CONSTITUTIONAL: No fevers, no chills. PULMONARY: No shortness of breath. Productive cough. GASTROINTESTINAL: No nausea, vomiting, or diarrhea. The rest of the systems were reviewed and found to be negative. PAST SURGICAL HISTORY: Left hip surgery and AICD. ALLERGIES: NO KNOWN ALLERGIES. FAMILY HISTORY: HTN, CAD SOCIAL HISTORY: Nonsmoker, nondrinker. Never used illicit drugs. PHYSICAL EXAMINATION: GENERAL: The patient is in a position. VITAL SIGNS: Temperature 97.6, pulse 88, respirations 20, pulse oximetry is 94% on room air. HEAD, EARS, NOSE, AND THROAT: Unremarkable. NECK: Supple with no jugular vein distentions. PULMONARY: Diminished breath sounds bilaterally. HEART: Normal S1 and S2. No S3. ABDOMEN: Soft and nontender. No organomegaly. EXTREMITIES: No pedal edema. SKIN: No acute skin rash. NEUROLOGIC: No focal deficits. LABORATORY DATA: Reveals a WBC of 4300, hemoglobulin of 11, platelet count 149,000. BUN 25, creatinine 1.5. Urinalysis markedly abnormal with wbc's and leukocyte esterase positive. ASSESSMENT: Hypoxia, Mild COPD, productive cough. A 72 years old with end- stage Parkinson disease and Parkinson dementia, admitted with change in mental status, this could have been prompted by urinary tract infection. His respiratory status reveals upper airway secretions. The rest of the lungs actually clear. His chest x-ray is clear as well. I do not feel that the pulmonary medications are warranted at this time. We will observe closely on intravenous antibiotics with introduction of parkinsonian medication. His neuro condition should improve somewhat. However, if it deteriorates, then he may require suctioning nebulizer treatment. We will discuss it as needed. Jason Velázquez MD MTDD
--- NOTE | 2017-08-27 22:16 | CP.PCM.PN ---
Subjective - Date & Time of Evaluation Date of Evaluation: 08/27/17 Time of Evaluation: 11:45 - Subjective Subjective: Comfortable in bed, no fevers. Objective - Vital Signs/Intake and Output Vital Signs (last 24 hours): Temp Pulse Resp BP Pulse Ox 97.7 F 78 20 142/75 96 08/27/17 06:00 08/27/17 09:44 08/27/17 06:00 08/27/17 09:44 08/27/17 06:00 Intake and Output: 08/27/17 08/27/17 06:59 18:59 Intake Total 840 Output Total 1050 Balance -210 - Medications Medications: Current Medications Acetaminophen (Tylenol 325mg Tab) 650 mg PO Q4H PRN PRN Reason: Pain, moderate (4-7) Last Admin: 08/26/17 18:52 Dose: 650 mg Aspirin (Ecotrin) 81 mg PO DAILY [facility] Last Admin: 08/27/17 09:44 Dose: 81 mg Carvedilol (Coreg) 12.5 mg PO BID [facility] Last Admin: 08/27/17 09:44 Dose: 12.5 mg Sodium Chloride (Sodium Chloride 0.45%) 1,000 mls @ 60 mls/hr IV .[id number] [facility] Last Admin: 08/26/17 13:12 Dose: 60 mls/hr Meropenem (Merrem Iv 1 Gm Premix) 50 mls @ 100 mls/hr IVPB Q12 [facility] PRN Reason: Protocol Stop: 09/03/17 22:01 Last Admin: 08/27/17 09:43 Dose: 100 mls/hr Lorazepam (Ativan) 0.5 mg PO HS [facility] PRN Reason: Protocol Last Admin: 08/26/17 21:11 Dose: 0.5 mg - Labs Labs: 08/27/17 07:00 08/27/17 07:00 PT 13.5 SECONDS (9.4-12.5) H 08/25/17 12:50 INR 1.17 (0.93-1.08) H 08/25/17 12:50 - Constitutional Appears: Chronically Ill - Head Exam Head Exam: NORMAL INSPECTION - Neck Exam Neck Exam: absent: Meningismus - Respiratory Exam Respiratory Exam: Decreased Breath Sounds - Cardiovascular Exam Cardiovascular Exam: +S1, +S2 - GI/Abdominal Exam GI & Abdominal Exam: Soft. absent: Tenderness Assessment and Plan - Assessment and Plan (Free Text) Plan: Assessment sepsis due to Klebsiella urinary tract infection HTN S/P AICD and pacemaker placement cataracts Parkinson's disease dementia S/P left hip surgery history of nephrolithiasis Plan on Meropenem - can switch to Cefazolin to complete 10-14 days of therapy; follow up further plans of Urology
[2017-08-27] MEDS: ceFAZolin 1 gm in NS 1 GM/100 ML BAG IVPB SCH (23:46)
[2017-08-28] MEDS: ceFAZolin 1 gm in NS 1 GM/100 ML BAG IVPB SCH ×2 (05:18→13:06)
[2017-08-28] MEDS: Sodium Chloride 0.45% 1,000 ML IV SCH (06:24)
[2017-08-28 07:14] LABS: HEMOGLOBIN 12.5 g/dL (14.0-18.0); MEAN CORPUSCULAR HEMOGLOBIN 26.8 pg (25.0-35.0); MEAN CORPUSCULAR HGB CONC 32.7 g/dl (31.0-37.0); MEAN PLATELET VOLUME 11.4 fl (7.0-11.0); RBC 4.66 10^6/uL (3.5-6.1); RED CELL DISTRIBUTION WIDTH 15.1 % (11.5-14.5); WHITE BLOOD COUNT 8.9 10^3/ul (4.5-11.0)
[2017-08-28 07:26] LABS: ALB/GLOB RATIO 1.1 (1.1-1.8); ALBUMIN 3.5 g/dL (3.0-4.8); ALT/SGPT 32 U/L (7-56); AST/SGOT 31 U/L (17-59); BLOOD UREA NITROGEN 16 mg/dL (7-21); CALCIUM 8.9 mg/dL (8.4-10.5); GFR AFRICAN-AMERICAN > 60; GFR NON-AFRICAN AMERICAN 59
[2017-08-28] MEDS ORDERED: Acetylcysteine 20% Inhal Soln (4ml) IH ONE (09:00)
[2017-08-28] MEDS ORDERED: Acetylcysteine 20% Inhal Soln (4ml) PO ONE (09:00)
[2017-08-28 09:19] VITALS: BP 115/62; PULSE 85; RESP 19; TEMP 97.9; O2SAT 98
[2017-08-28] MEDS ORDERED: Acetylcysteine 20% Inhal Sol (30ml) PO SCH (10:00)
[2017-08-28] MEDS ORDERED: Acetylcysteine 20% Inhal Soln (4ml) PO SCH (10:00)
[2017-08-28] MEDS ORDERED: Acetylcysteine 20% Inhal Soln (4ml) IH SCH (10:00)
--- NOTE | 2017-08-28 16:01 | CP.PCM.PN ---
Subjective - Date & Time of Evaluation Date of Evaluation: 08/28/17 Time of Evaluation: 09:00 - Subjective Subjective: Comfortable, no fevers. Objective - Vital Signs/Intake and Output Vital Signs (last 24 hours): Temp Pulse Resp BP Pulse Ox 97.9 F 85 19 115/62 98 08/28/17 06:00 08/28/17 09:37 08/28/17 06:00 08/28/17 09:37 08/28/17 06:00 Intake and Output: 08/28/17 08/28/17 06:59 18:59 Intake Total 1080 Output Total 500 Balance 580 - Medications Medications: Current Medications Acetaminophen (Tylenol 325mg Tab) 650 mg PO Q4H PRN PRN Reason: Pain, moderate (4-7) Last Admin: 08/26/17 18:52 Dose: 650 mg Acetylcysteine (Acetylcysteine 20%) 3 ml PO BID [facility] Arformoterol Tartrate (Brovana) 15 mcg IH [id number] [facility] Aspirin (Ecotrin) 81 mg PO DAILY [facility] Last Admin: 08/28/17 09:37 Dose: 81 mg Carvedilol (Coreg) 12.5 mg PO BID [facility] Last Admin: 08/28/17 09:37 Dose: 12.5 mg Sodium Chloride (Sodium Chloride 0.45%) 1,000 mls @ 60 mls/hr IV .[id number] [facility] Last Admin: 08/28/17 06:24 Dose: 60 mls/hr Cefazolin Sodium (Ancef 1gm In Ns) 1 gm in 100 mls @ 100 mls/hr IVPB Q8 [facility] PRN Reason: Protocol Last Admin: 08/28/17 05:18 Dose: 100 mls/hr Lorazepam (Ativan) 0.5 mg PO HS [facility] PRN Reason: Protocol Last Admin: 08/27/17 21:58 Dose: 0.5 mg - Labs Labs: 08/28/17 06:45 08/28/17 06:45 PT 13.5 SECONDS (9.4-12.5) H 08/25/17 12:50 INR 1.17 (0.93-1.08) H 08/25/17 12:50 - Constitutional Appears: Chronically Ill - Head Exam Head Exam: NORMAL INSPECTION - Respiratory Exam Respiratory Exam: Decreased Breath Sounds - Cardiovascular Exam Cardiovascular Exam: +S1, +S2 - GI/Abdominal Exam GI & Abdominal Exam: Soft. absent: Tenderness Assessment and Plan - Assessment and Plan (Free Text) Plan: Assessment sepsis due to Klebsiella urinary tract infection HTN S/P AICD and pacemaker placement cataracts Parkinson's disease dementia S/P left hip surgery history of nephrolithiasis Plan continue Cefazolin to complete 10-14 days of therapy (day 3 today); follow up further plans of Urology
--- NOTE | 2017-08-28 16:14 | PN ---
DATE: 08/28/2017 PULMONARY PROGRESS NOTE SUBJECTIVE: The patient was seen and examined at bedside. PHYSICAL EXAMINATION VITAL SIGNS: His vital signs are stable. Temperature 98.8, pulse 91, respirations 20 and pulse oximetry is 96% on room air. LUNGS: The reported large amount of secretions with cough. I examined the patient's lungs and there are only a few upper airway rhonchi, the rest of the lungs are clear. LABORATORY DATA: His today's laboratory data, WBC 8.9, hemoglobin of 12.5. ASSESSMENT: 1. Severe Parkinson disease. 2. Upper airway secretions. 3. No evidence of pneumonia. PLAN: Agree with current management. The patient can have inhalation treatment with added Mucomyst on a p.r.n. basis only. ordered Brovana and Mucomyst on this patient. Jason Velázquez MD
[2017-08-28] MEDS ORDERED: Arformoterol 15 mcg/2 ml Inh Sol IH SCH (20:00)
--- NOTE | 2017-08-29 08:07 | DS ---
I saw Mr. Lake resting in bed. He is very alert. He is being fed by his . He is currently on IV fluids, IV antibiotics, Ativan, Coreg, Ecotrin, and Tylenol. He is on a regular diet. He is looking at me. He is much better, much improved since he has been here. OBJECTIVE: VITAL SIGNS: He has a 98.8 temperature, 91 pulse, 113/63 blood pressure, 20 respiratory rate, 96% O2 sat on room air. HEENT: Head is atraumatic, normocephalic. He is looking at me. He is bright-eyed. His throat is moist. He is very alert and aware, trying to talk. HEART: Regular rate. LUNGS: Decreased breath sounds but clear. ABDOMEN: Soft. EXTREMITIES: No edema. Mild contracture. He was walking before he came into the hospital. Also, he has got Parkinson's disease and has had a urinary tract infection. He continues to be on Ancef another 8 to 10 days because he has got Klebsiella pneumonia in the urine and that was the recommendation from Infectious Disease. I am hoping to get him to the TCU today to finish out the antibiotics and physical therapy. I think it is a good discharge plan. go home again. I will see him on house calls. This is, hopefully, a discharge summary on Millie Delong with UTI, change in mentation, Parkinson's disease. Rambo Smith DO MTDD
== END 2017-08-28 14:52 | DRG 872 ==
LOC: ED 11:08 → ERH 13:09 → 5RSO 14:47
PROVIDERS: ADMIT Family Medicine; ATTEND Family Medicine
DX: A41.9 Sepsis, unspecified organism (principal); N39.0 Urinary tract infection, site not specified; B96.1 Klebsiella pneumoniae [K. pneumoniae] as the cause of diseases classified elsewhere; R65.20 Severe sepsis without septic shock; G20 Parkinson's disease; F02.80 Dementia in other diseases classified elsewhere, unspecified severity, without behavioral disturbance, psychotic disturbance, mood disturbance, and anxiety; Z96.642 Presence of left artificial hip joint; F32.9 Major depressive disorder, single episode, unspecified; F41.9 Anxiety disorder, unspecified; I10 Essential (primary) hypertension; H26.9 Unspecified cataract; M19.90 Unspecified osteoarthritis, unspecified site; R09.02 Hypoxemia; R32 Unspecified urinary incontinence; Z51.5 Encounter for palliative care; Z74.01 Bed confinement status; Z95.0 Presence of cardiac pacemaker; Z87.442 Personal history of urinary calculi; Z87.891 Personal history of nicotine dependence; Z79.82 Long term (current) use of aspirin; Z95.810 Presence of automatic (implantable) cardiac defibrillator

== ENCOUNTER 2017-08-28 14:58 | Inpatient (IN) | payer OTHER, BC ==
[2017-08-28 15:07] VITALS: BMI 22.3
[2017-08-28] MEDS: Sodium Chloride 0.45% 1,000 ML IV SCH (18:04)
[2017-08-28] MEDS: Arformoterol 15 mcg/2 ml Inh Sol IH SCH (19:54)
[2017-08-28] MEDS: ceFAZolin 1 gm in NS 1 GM/100 ML BAG IVPB SCH (21:10)
[2017-08-28] MEDS ORDERED: LORazepam Half Tablet 0.25 MG PO SCH (22:00)
[2017-08-29] MEDS: ceFAZolin 1 gm in NS 1 GM/100 ML BAG IVPB SCH ×3 (05:12→21:16)
[2017-08-29] MEDS: Arformoterol 15 mcg/2 ml Inh Sol IH SCH ×2 (07:15→23:31)
[2017-08-29] MEDS: Sodium Chloride 0.45% 1,000 ML IV SCH ×2 (09:39→23:44)
--- NOTE | 2017-08-29 12:33 | HP ---
HISTORY OF PRESENT ILLNESS: He was in the hospital site, now he is on the Transitional Care Unit. He is here for physical therapy and IV antibiotics. I have been doing house calls on him for a while. He is here now with his . He is alert, trying to talk to me in bed. He is a 72-year-old who presents with Parkinson's disease. He is bedridden. He has been walking a little bit. He was on comfort care hospice, but he had foul-smelling bloody urine, so that she sent him to the emergency room. He was on Bactrim or Vantin and it did not work. He failed outpatient therapy. Now, he is on IV antibiotics for 10 more days and moved over to the Transitional Care Unit site for physical therapy to try and get him back to walking again and also to get rid of the infection. He gets catheterized twice a day by his . PAST MEDICAL HISTORY: He has a past medical history for Parkinson's disease, hypertension, dementia, cataracts, kidney stones, arthritis, urinary incontinence, catheterize twice a day by his . PAST SURGICAL HISTORY: He has had a surgery of left hip joint replacement, left hip ORIF. FAMILY HISTORY: Unknown family history. SOCIAL HISTORY: Former smoker. No alcohol. No drugs. ALLERGIES: NO KNOWN DRUG ALLERGIES. MEDICATIONS: He is currently taking cefazolin, he needs 8-10 more days of that; Ativan; Brovana; Coreg; Ecotrin; IV fluids and Tylenol. REVIEW OF SYSTEMS: He is much more alert and calm. He is talking a little bit. Urine is clear in the Od bag. No acute vision or hearing changes. No sore throat. No chest pain or palpitations. No shortness of breath or cough. No abdominal pain, nausea, vomiting, constipation. No back pain. He is mildly contracted in the lower extremities. His skin for the most part is intact. No apparent rashes or ulcers. No headaches. PHYSICAL EXAMINATION: GENERAL: He is alert, looking at me, trying to talk with me, smiling and pleasant. He is comfortable, nontoxic. VITAL SIGNS: 97.8 temp, 86 pulse, 131/80 blood pressure, 18 respiratory rate, 97% O2 sat on room air. HEENT: Head is atraumatic, normocephalic. Extraocular muscles are intact. Pupils are equal and reactive to light and accommodation. Throat is dry. NECK: Supple. HEART: Regular rate. Normal S1 and S2. LUNGS: Decreased breath sounds. Poor inspiration, but clear to auscultation. No wheezes. No rhonchi or rales. ABDOMEN: Soft, nontender. Positive bowel sounds. No guarding. No rebound. No CVA tenderness. EXTREMITIES: The lower extremities are mildly contracted. No edema. He has a Do in place, it is draining yellow clear urine, improved. NEUROLOGICAL: GCS is 15. Cranial nerves II through XII grossly intact. Just slow to respond due to his Parkinson's. SKIN: Warm and dry. No apparent rashes or ulcers. LYMPHATICS: Thyroid midline. No palpable lymphadenopathy appreciated. LABORATORY DATA: No labs have been ordered. IMPRESSION: No consults have been ordered. We will order lab for tomorrow. We will get it every other day. Continue with the IV antibiotics. He is here for a urinary tract infection, failed outpatient therapy, a little bit of debility, needs to get physical therapy to walk again and he has Parkinson's disease. Rambo Smith DO
[2017-08-30] MEDS: ceFAZolin 1 gm in NS 1 GM/100 ML BAG IVPB SCH ×3 (05:24→21:50)
[2017-08-30 06:57] LABS: HEMOGLOBIN 11.2 g/dL (14.0-18.0); MEAN CELL VOLUME 82.4 fl (80.0-105.0); MEAN CORPUSCULAR HEMOGLOBIN 26.7 pg (25.0-35.0); MEAN CORPUSCULAR HGB CONC 32.4 g/dl (31.0-37.0); MEAN PLATELET VOLUME 10.6 fl (7.0-11.0); RBC 4.2 10^6/uL (3.5-6.1); RED CELL DISTRIBUTION WIDTH 15.1 % (11.5-14.5); WHITE BLOOD COUNT 8.2 10^3/ul (4.5-11.0)
[2017-08-30] MEDS: Arformoterol 15 mcg/2 ml Inh Sol IH SCH ×3 (07:20→19:14)
[2017-08-30 07:28] LABS: ALB/GLOB RATIO 1.1 (1.1-1.8); ALBUMIN 3.2 g/dL (3.0-4.8); ALT/SGPT 28 U/L (7-56); AST/SGOT 24 U/L (17-59); BLOOD UREA NITROGEN 15 mg/dL (7-21); CALCIUM 8.6 mg/dL (8.4-10.5); GFR AFRICAN-AMERICAN > 60; GFR NON-AFRICAN AMERICAN > 60
--- NOTE | 2017-08-30 13:24 | PN ---
DATE: 08/30/2017 SUBJECTIVE: I saw him in the TCU with his eating and he is alert. He is eating. He is trying to do better. Physical therapy has taken a few steps. He is on the IV antibiotics; Ancef, Ativan, Brovana, Coreg, Ecotrin, IV fluids and Tylenol. He is alert and talking to me. He is asking when he could go home, in seven more days. OBJECTIVE: VITAL SIGNS: Temperature 97.9, 81 pulse, 124/71 blood pressure, 18 respiratory rate, 97% O2 sat on room air. HEENT: Head is atraumatic, normocephalic. HEART: Regular rate. LUNGS: Decreased breath sounds, but clear to auscultation. ABDOMEN: Soft. EXTREMITIES: No edema. DATA: He has a 8.2 white count, 11.2 hemoglobin, 34.6 hematocrit with 194,000 platelets. Sodium 141, potassium 3.9, BUN 15, creatinine 1.1, GFR is greater than 60. Sugar is 90. Calcium is 8.6, AST 24, ALT is 20, alkaline phosphatase 75, total protein 6. Overall, I am very happy with him. I had a very long discussion with his . He will have seven more days of IV antibiotics. We discussed going home, house calls at home, hospice when he gets home. Hopefully, we will continue all that and he will be resting comfortably in TCU for seven more days with IV antibiotics. He is there for infection. Rambo Smith DO
[2017-08-30] MEDS: Sodium Chloride 0.45% 1,000 ML IV SCH (17:31)
[2017-08-31] MEDS: ceFAZolin 1 gm in NS 1 GM/100 ML BAG IVPB SCH ×3 (05:09→22:25)
[2017-08-31] MEDS: Arformoterol 15 mcg/2 ml Inh Sol IH SCH ×2 (07:06→20:02)
--- NOTE | 2017-08-31 09:46 | PN ---
DATE: 08/31/2017 SUBJECTIVE: I saw him with his . He is feeding her breakfast. He is alert, oriented, knows what is going on. He wants to go home. I explained to him that he needs to be on Ancef for 7-10 days. He is on Ancef, Ativan, Brovana, Coreg, Ecotrin, IV fluids, Tylenol. He is walking with a walker with physical therapy. He is improving. PHYSICAL EXAMINATION: VITAL SIGNS: He has a 98.3 temp, 80 pulse, 135/79 blood pressure, 21 respiratory rate, 96% O2 sat on room air. HEENT: Head is atraumatic, normocephalic. HEART: Regular rate. LUNGS: Decreased breath sounds, but clear. ABDOMEN: Soft. EXTREMITIES: Mildly contracted, but he can move them slowly, from his Parkinson's. ASSESSMENT AND PLAN: He had blood tests on 08/30/2017, he did well. We will not check him tomorrow. We will check him probably on Friday. He will continue with the medications, IV antibiotics, physical therapy. Discussed with the . Millie Delong who has a urinary tract infection, change in mentation, Parkinson's. Rambo Smith DO
[2017-09-01] MEDS: ceFAZolin 1 gm in NS 1 GM/100 ML BAG IVPB SCH ×3 (05:20→21:34)
[2017-09-01] MEDS: Arformoterol 15 mcg/2 ml Inh Sol IH SCH ×2 (07:18→21:00)
--- NOTE | 2017-09-01 09:41 | PN ---
DATE: 09/01/2017 SUBJECTIVE: I saw him resting comfortably in bed in the TCU. He is getting his IV antibiotics. He is alert. He is getting appetite. He is on Ancef, Ativan, Brovana, Coreg, Ecotrin, IV fluids and Tylenol. PHYSICAL EXAMINATION: VITAL SIGNS: He has a 97.9 temperature, 84 pulse, 136/83 blood pressure, 18 respiratory rate. GENERAL: He is alert and talking. He has got Parkinson disease, so he responds slowly. HEENT: His head is atraumatic, normocephalic. His throat is moist. NECK: Supple. HEART: Regular rate. LUNGS: Decreased breath sounds, but clear. ABDOMEN: Soft. EXTREMITIES: Mildly contracted, but no edema. He is walking with therapy. He is improving. LABORATORY DATA: On 08/30, his white count is 8.2, hemoglobin 11.2, platelets were 194. His chemistry showed a potassium of 3.9, BUN 50, creatinine 1.1, GFR is greater than 60. AST is 24 that was on 08/30, but we have no blood today, I have ordered blood for tomorrow. ASSESSMENT AND PLAN: We will continue with the IV antibiotics, IV fluids, physical therapy and when ID states we can stop the IV antibiotics, we will change it to tablets and discharge him home. Follow up on house call. Presently right now, he is here for urinary tract infection, change in mentation, Parkinson's. Rambo Smith DO
[2017-09-01] MEDS: Sodium Chloride 0.45% 1,000 ML IV SCH (10:15)
[2017-09-02] MEDS: ceFAZolin 1 gm in NS 1 GM/100 ML BAG IVPB SCH ×3 (05:31→21:04)
[2017-09-02 06:30] LABS: HEMOGLOBIN 11.3 g/dL (14.0-18.0); MEAN CELL VOLUME 83.1 fl (80.0-105.0); MEAN CORPUSCULAR HEMOGLOBIN 26.2 pg (25.0-35.0); MEAN CORPUSCULAR HGB CONC 31.5 g/dl (31.0-37.0); RBC 4.32 10^6/uL (3.5-6.1); RED CELL DISTRIBUTION WIDTH 15.1 % (11.5-14.5); WHITE BLOOD COUNT 6.4 10^3/ul (4.5-11.0)
[2017-09-02] MEDS: Arformoterol 15 mcg/2 ml Inh Sol IH SCH ×2 (07:12→21:32)
[2017-09-02 07:54] LABS: ALB/GLOB RATIO 1.1 (1.1-1.8); ALBUMIN 3.3 g/dL (3.0-4.8); ALT/SGPT 16 U/L (7-56); AST/SGOT 21 U/L (17-59); BLOOD UREA NITROGEN 16 mg/dL (7-21); GFR AFRICAN-AMERICAN > 60; GFR NON-AFRICAN AMERICAN > 60
--- NOTE | 2017-09-02 12:02 | PN ---
DATE: 09/02/2017 SUBJECTIVE: I saw him resting comfortably in bed this morning. He is alert with his feeding him. He is looking to go home. He knows he cannot for another 3 or 4 days, getting Ancef to finish off the treatment. He is on Ancef, Ativan, Brovana, Coreg, Ecotrin, IV fluids and Tylenol. PHYSICAL EXAMINATION: VITAL SIGNS: Temperature 99.2, 80 pulse, 123/74 blood pressure, 18 respiratory rate, 96%O2 saturation on room air. HEENT: Head is atraumatic, normocephalic. HEART: Regular rate. LUNGS: Clear to auscultation. ABDOMEN: Soft. EXTREMITIES: Contracted mildly, but he is walking. No edema. LABORATORY DATA: He did have a 6.4 white count, 11.3 hemoglobin, 35.9 hematocrit with 254 platelets. Sodium 143, potassium is 4, chloride is 108, BUN 16, creatinine 1.1, GFR is greater than 60, sugar is 87, calcium is 9, AST is 21, ALT is 16, alkaline phosphatase 74. IMPRESSION: He is doing well. I want to do labs tomorrow. Continue with IV antibiotics. Continue aggressive treatment and care on Grady Delong. Discussed with the at length. Rambo Smith DO
[2017-09-02] MEDS: Sodium Chloride 0.45% 1,000 ML IV SCH ×2 (14:25→14:27)
[2017-09-03] MEDS: ceFAZolin 1 gm in NS 1 GM/100 ML BAG IVPB SCH ×3 (05:07→21:42)
[2017-09-03] MEDS: Sodium Chloride 0.45% 1,000 ML IV SCH ×3 (05:08→23:55)
[2017-09-03] MEDS: Arformoterol 15 mcg/2 ml Inh Sol IH SCH ×2 (07:16→20:37)
--- NOTE | 2017-09-03 09:36 | PN ---
DATE: 09/03/2017 SUBJECTIVE: I saw him resting comfortably in bed. He slept well last night. He is still asking when he could go home, I told him most probably Friday. He is on Ancef, Ativan, Brovana, Coreg, Ecotrin, IV fluids and Tylenol. He is eating when he is fed. OBJECTIVE: VITAL SIGNS: He has a 97.6 temperature, 75 pulse, 120/68 blood pressure, 18 respiratory rate, 97% O2 saturation on room air. GENERAL: Very alert, looking at me, talking slowly but talking from his Parkinson's. HEENT: His head is atraumatic, normocephalic. His throat is moist. HEART: Regular rate. LUNGS: Decreased breath sounds, but clear. ABDOMEN: Soft. EXTREMITIES: Mildly contracted, no edema. He is walking. DATA: He had no labs, last labs were yesterday. I will check labs tomorrow. I am hoping he continues to do well in physical therapy, IV antibiotics. His was not there this morning. I will touch base with him later. I will continue IV antibiotics as per Infectious Disease and he is here for physical therapy and IV antibiotics. He is here for UTI, change of mentation and Parkinson's. Thank you very much. Rambo Smith DO
[2017-09-03 16:53] VITALS: RESP 16
[2017-09-04] MEDS: ceFAZolin 1 gm in NS 1 GM/100 ML BAG IVPB SCH ×3 (05:29→21:09)
[2017-09-04 06:11] VITALS: O2SAT 95
[2017-09-04 07:14] LABS: HEMOGLOBIN 11.3 g/dL (14.0-18.0); MEAN CELL VOLUME 82.9 fl (80.0-105.0); MEAN CORPUSCULAR HGB CONC 31.4 g/dl (31.0-37.0); MEAN PLATELET VOLUME 9.8 fl (7.0-11.0); RBC 4.34 10^6/uL (3.5-6.1); RED CELL DISTRIBUTION WIDTH 15.1 % (11.5-14.5); WHITE BLOOD COUNT 7.2 10^3/ul (4.5-11.0)
[2017-09-04] MEDS: Arformoterol 15 mcg/2 ml Inh Sol IH SCH ×3 (07:16→20:36)
[2017-09-04 07:31] LABS: ALB/GLOB RATIO 1.1 (1.1-1.8); ALBUMIN 3.3 g/dL (3.0-4.8); ALT/SGPT 18 U/L (7-56); AST/SGOT 20 U/L (17-59); BLOOD UREA NITROGEN 14 mg/dL (7-21); CALCIUM 8.9 mg/dL (8.4-10.5); GFR AFRICAN-AMERICAN > 60; GFR NON-AFRICAN AMERICAN > 60
--- NOTE | 2017-09-04 09:09 | PN ---
DATE: 09/04/2017 SUBJECTIVE: I saw him sitting up in bed. He is eating breakfast. His is feeding him. He is on Ancef, Ativan, Brovana, Coreg, Ecotrin, IV fluids and Tylenol. The has lots of questions and wants ENT to see her . PHYSICAL EXAMINATION: VITAL SIGNS: 98.2 temp, 75 pulse, 150/74 blood pressure, 16 respiratory rate, 95% O2 sat on room air. GENERAL: He is alert. He is talking to me slowly from his Parkinson's. HEENT: His head is atraumatic, normocephalic. HEART: Regular rate. LUNGS: Clear to auscultation. ABDOMEN: Soft. EXTREMITIES: Contracted, but he seems to be walking a little bit and no edema. LABORATORY DATA: He has a 7.2 white count, 11.3 hemoglobin, 36 hematocrit with 265 platelets. 143 sodium, potassium is 4.1, BUN 14, creatinine 1.1, GFR is greater than 60, sugar is 91, calcium is 8.9, total bili is 0.2, AST is 20, ALT is 18, alk phos 71, total protein 6.1. ASSESSMENT AND PLAN: They want a consult with [facility], N[facility] Thro[facility]. We will see if he will come in and take a look. The is sort of demanding this and we will see how he does. discharge him tomorrow. He can finish up with his IV antibiotics and we will follow him on the outpatient at home or comfort care hospice. He was here for a urinary tract infection, change in mentation and Parkinson's. Rambo Smith DO MTDD
[2017-09-04] MEDS: Sodium Chloride 0.45% 1,000 ML IV SCH (15:46)
--- NOTE | 2017-09-05 04:56 | CON ---
DATE: 09/04/[address] Smith and requested by family. HISTORY OF PRESENT ILLNESS: This 72-year-old male has been seen in our office over the years secondary to cerumen impaction and presbycusis. The patient was seen as a request from family for cerumen removal. Preop noted on clinical exam bilateral impactions; post clean with intact TM. Procedure is a cerumen lysis with Alligator forceps. Patient was seen at the bedside. This is a 72-year-old male with , who assisted in cleaning of the ears. Right ear was approached first with a large size otoscope and an Alligator forceps, and impaction was then removed from superior to inferior or external to internal, with noted TM intact and nontraumatic with a subjective improvement on hearing. Left ear was approached in a similar fashion and removed with an Alligator forceps without suction or irrigation. Patient tolerated both procedures without complication with subjectively noted improvement. Long medical history is noted on this patient. Donte Bo DO
[2017-09-05] MEDS: Sodium Chloride 0.45% 1,000 ML IV SCH ×2 (05:25→05:55)
[2017-09-05] MEDS: ceFAZolin 1 gm in NS 1 GM/100 ML BAG IVPB SCH (05:26)
[2017-09-05 05:47] VITALS: BP 113/59; PULSE 82; TEMP 97.7
[2017-09-05] MEDS: Arformoterol 15 mcg/2 ml Inh Sol IH SCH (07:16)
--- NOTE | 2017-09-05 13:18 | DS ---
HISTORY OF PRESENT ILLNESS: He is resting comfortably in the TCU. He is finishing his last day of IV antibiotics today as per Infectious Disease. He is alert and comfortable. Parkinson's disease. No acute distress. PHYSICAL EXAMINATION: VITAL SIGNS: He has a 97.7 temp, 82 pulse, 113/59 blood pressure, 16 respiratory rate, 95% O2 sat on room air. GENERAL: He is walking with physical therapy and a walker. He is eating very well. He is alert and wants to go home. HEENT: His head is atraumatic, normocephalic. HEART: Regular rate. LUNGS: Decreased breath sounds, but clear. ABDOMEN: Soft, nontender, positive bowel sounds. EXTREMITIES: Have no edema. Mildly contracted. GENITOURINARY: He has got a Do in and they wanted the Do out. The straight cath him at home. LABORATORY DATA: He has a 7.2 white count, 11.3 hemoglobin, 265 platelets. 143 sodium, potassium 4.1, BUN 14, creatinine 1.1, GFR is greater than 60, sugar is 8.9, AST is 20, ALT is 18, alk phos 71. ASSESSMENT AND PLAN: He did quite well. He will be discharged today. The family will call me if he need any medications. Ativan, Brovana, Coreg, Ecotrin he takes. I will see him on a house call. The will me. The pharmacy will call me if he need any medications. Millie Delong who had a urinary tract infection, change in mentation and Parkinson's disease. Rambo Smith DO MTDD
== END 2017-09-05 09:44 | disposition hospice, home (50) | DRG 690 ==
LOC: TRCU 14:58
PROVIDERS: ADMIT Family Medicine; ATTEND Family Medicine
PROC: F07Z9FZ Gait Training/Functional Ambulation Treatment using Assistive, Adaptive, Supportive or Protective Equipment (ICD-10-PCS; principal; 2017-08-28)
PROC: F08Z4FZ Home Management Treatment using Assistive, Adaptive, Supportive or Protective Equipment (ICD-10-PCS; 2017-08-28)
PROC: 3E0F7GC Introduction of Other Therapeutic Substance into Respiratory Tract, Via Natural or Artificial Opening (ICD-10-PCS; 2017-08-28)
DX: N39.0 Urinary tract infection, site not specified (principal); R53.81 Other malaise; Z79.2 Long term (current) use of antibiotics; G20 Parkinson's disease; F02.80 Dementia in other diseases classified elsewhere, unspecified severity, without behavioral disturbance, psychotic disturbance, mood disturbance, and anxiety; I10 Essential (primary) hypertension; Z51.5 Encounter for palliative care; Z87.891 Personal history of nicotine dependence; Z96.642 Presence of left artificial hip joint

== ENCOUNTER 2018-01-02 12:26 | Emergency (ER) | payer MEDICARE, BC ==
[2018-01-02 12:26] VITALS: BMI 22.3
[2018-01-02] MEDS ORDERED: Sodium Chloride 0.9% 500 ML IV STA (13:05)
[2018-01-02 13:13] VITALS: RESP 18
[2018-01-02 14:07] LABS: ALB/GLOB RATIO 1.1 (1.1-1.8); ALBUMIN 3.6 g/dL (3.0-4.8); CALCIUM 9.1 mg/dL (8.4-10.5)
[2018-01-02 14:08] LABS: PH,URINE 6.5 (4.7-8.0); URINE BILIRUBIN NEGATIVE (NEGATIVE); URINE BLOOD SMALL (NEGATIVE); URINE GLUCOSE (UA) NEGATIVE (NEGATIVE); URINE LEUKOCYTE ESTERASE NEGATIVE Leu/uL (NEGATIVE); URINE PROTEIN NEGATIVE mg/dL (<30 mg/dL); URINE UROBILINOGEN 0.2 E.U./dL (<1 E.U./dL)
[2018-01-02 14:24] LABS: URINE APPEARANCE CLEAR (CLEAR); URINE COLOR YELLOW (YELLOW)
[2018-01-02 14:28] LABS: URINE BACTERIA FEW (NEG); URINE WBC 0 - 2 /hpf (0-6)
[2018-01-02] MEDS ORDERED: Sodium Chloride 0.9% 1,000 ML IV SCH (14:30)
[2018-01-02 14:35] LABS: BASO # 0.01 K/mm3 (0.0-2.0); BASO % 0.1 % (0.0-3.0); EOS # 0.2 (0.0-0.7); EOS % 2.3 % (1.5-5.0); GRAN # 6.98 (1.4-6.5); GRAN % 77.9 % (50.0-68.0); HEMOGLOBIN 12.1 g/dL (14.0-18.0); LYMPH # 0.8 (1.2-3.4); LYMPH % 8.8 % (22.0-35.0); MEAN CELL VOLUME 81.5 fl (80.0-105.0); MEAN CORPUSCULAR HEMOGLOBIN 26.7 pg (25.0-35.0); MEAN CORPUSCULAR HGB CONC 32.7 g/dl (31.0-37.0); MEAN PLATELET VOLUME 11.3 fl (7.0-11.0); MONO % 10.9 % (1.0-6.0); RBC 4.54 10^6/uL (3.5-6.1); RED CELL DISTRIBUTION WIDTH 15.5 % (11.5-14.5)
--- NOTE | 2018-01-02 15:16 | ED PDOC ---
Arrival/HPI - General Chief Complaint: Weakness/Neurological Deficit Time Seen by Provider: 01/02/18 12:28 Historian: Patient - History of Present Illness Narrative History of Present Illness (Text): 01/02/18 15:11 Patient is a 72 year old male, on hospice, with past medical history of parkinson's, urinary tract infections, presents to the Emergency Department today with history of decreased appetite, increased "crankiness" and darker urine. Family became concerned that patient may have a urinary tract infection as it has presented like this in the past, and are also concerned that he may be dehydrated because he has had decreased appetites and is weaker over the past several days. states he was diagnosed with a urinary tract infection [address] Smith and placed on Cipro. states there was no improve ment in dark urine. They received a call that urine culture revealed Cipro resistance, and patient was placed on Bactrim by PMD 3 days ago. They confirm that patient is hospice but they are requesting iv fluids and iv and some blood work. No falls or injury reported. Patient has not expressed any new pain or discomfort. Past Medical History - Infectious Disease Hx of Infectious Diseases: None - Tetanus Immunization Tetanus Immunization: Unknown - Cardiac Hx Cardiac Disorders: Yes Hx Hypertension: Yes - Pulmonary Hx Respiratory Disorders: No - Neurological Hx Neurological Disorder: Yes Hx Dementia: Yes Hx Parkinson's Disease: Yes - HEENT Hx HEENT Disorder: Yes Hx Cataracts: Yes - Renal Hx Renal Disorder: No - Endocrine/Metabolic Hx Endocrine Disorders: No - Hematological/Oncological Hx Blood Disorders: Yes Hx Anemia: Yes - Integumentary Hx Dermatological Disorder: Yes - Musculoskeletal/Rheumatological Hx Musculoskeletal Disorders: Yes Hx Arthritis: Yes - Gastrointestinal Hx Gastrointestinal Disorders: No - Genitourinary/Gynecological Hx Genitourinary Disorders: Yes Hx Urinary Tract Infection: Yes Other/Comment: J[place] - Psychiatric Hx Psychophysiologic Disorder: Yes Hx Depression: Yes Hx Substance Use: No - Past Surgical History Past Surgical History: Unable to Obtain - Surgical History Hx Joint Replacement: Yes (L HIP) Hx Orthopedic Surgery: Yes - Anesthesia Hx Anesthesia Reactions: No (unknown) Hx Malignant Hyperthermia: No (unknown) - Suicidal Assessment Feels Threatened In Home Enviroment: No Family/Social History Family/Social History: Unknown Family HX Smoking Status: Former Smoker Hx Alcohol Use: No Hx Substance Use: No Hx Substance Use Treatment: No Allergies/Home Meds Allergies/Adverse Reactions: Allergies No Known Allergies Allergy (Verified 01/02/18 12:32) Home Medications: Home Meds Medication Instructions Recorded Confirmed Aspirin [Ecotrin] 81 mg PO DAILY 09/13/16 01/02/18 Carvedilol [Coreg] 12.5 mg PO BID 09/13/16 01/02/18 Sulfamethoxazole/Trimethoprim 1 tab PO BID 01/02/18 01/02/18 [Bactrim Ds Tablet] Review of Systems - Review of Systems Constitutional: Fatigue Respiratory: absent: SOB Cardiovascular: absent: Chest Pain Gastrointestinal: Appetite Changes. absent: Abdominal Pain Genitourinary Male: Urinary Output Changes Neurological: absent: Focal Weakness Physical Exam Vital Signs Reviewed: Yes Vital Signs Temp Pulse Resp BP Pulse Ox 01/02/18 13:21 99.1 F 01/02/18 13:10 98.3 F 81 18 111/68 97 Temperature: Afebrile Appearance: Positive for: Non-Toxic, Comfortable - Systems Exam Head: Present: Atraumatic Mouth: Present: Dry Pharnyx: No: ERYTHEMA, EXUDATE, Strider Neck: Present: Normal Range of Motion. No: Meningeal Signs Respiratory/Chest: Present: Clear to Auscultation. No: Respiratory Distress Cardiovascular: Present: Regular Rate and Rhythm, Murmurs Abdomen: No: Tenderness, Distention Rectal: No: Gross Blood Genitourinary Male: Present: Other (no testicular abscess or drainage noted) Upper Extremity: No: Edema Lower Extremity: Present: NORMAL PULSES. No: Edema Neurological: Present: Other (motor and sensory exam at baseline) Skin: Present: Warm Psychiatric: Present: Alert. No: Normal Insight, Normal Concentration Medical Decision Making ED Course and Treatment: 01/02/18 21:38 Patient presents with and daughter. They confirm that patient is hospice. They report that he was recently treated for UTI, but have noticed that he appears more agitated and weaker over past several days. They request iv and iv fluids, but do not want and other testing to be done aside from iv fluids and basic labs. They express understanding of hospice care and they request that they would prefer patient not be admitted. I did discuss his care in ED with his hospice service. IV line established and iv fluids ordered. Labs reviewed with patient's family. UA culture was sent. He was recently switched to Bactrim by Dr. Smith I have advised continuing this. Patient will be discharged back home with family and under hospice care with agreement by his and family. Hospice states they will follow-up with patient. - Lab Interpretations Lab Results: 01/02/18 14:05 01/02/18 13:40 Lab Results 01/02/18 14:05: WBC 9.0 D, RBC 4.54, Hgb 12.1 L, Hct 37.0 L, MCV 81.5, MCH 26.7, MCHC 32.7, RDW 15.5 H, Plt Count 142, MPV 11.3 H, Gran % 77.9 H, Lymph % (Auto) 8.8 L, [place] % (Auto) 10.9 H, Eos % (Auto) 2.3, Baso % (Auto) 0.1, Gran # 6.98 H, Lymph # (Auto) 0.8 L, [place] # (Auto) 1.0 H, Eos # (Auto) 0.2, Baso # (Auto) 0.01 01/02/18 14:03: Urine Color Yellow, Urine Appearance Clear, Urine pH 6.5, Ur Specific [place] 1.020, Urine Protein Negative, Urine Glucose (UA) Negative, Urine Ketones Negative, Urine Blood Small H, Urine Nitrate Negative, Urine Bilirubin Negative, Urine Urobilinogen 0.2, Ur Leukocyte Esterase Negative, Urine RBC 2 - 5, Urine WBC 0 - 2, Ur Epithelial Cells None, Urine Bacteria Few 01/02/18 13:40: Sodium 138, Potassium 4.9, Chloride 107, Carbon Dioxide 22, Anion Gap 14, BUN 21, Creatinine 1.6 H, Est GFR ( Amer) 51, Est GFR (Non- Af Amer) 42, Random Glucose 86, Calcium 9.1, Total Bilirubin 0.5, AST 68 H D, ALT 148 H, Alkaline Phosphatase 165 H D, Total Protein 6.8, Albumin 3.6, Globulin 3.2, Albumin/Globulin Ratio 1.1 - Medication Orders Current Medication Orders: Sodium Chloride (Sodium Chloride 0.9%) 1,000 mls @ 100 mls/hr IV .Q10H BERONICA Discontinued Medications Sodium Chloride (Sodium Chloride 0.9%) 500 mls @ 1,000 mls/hr IV .Q30M STA Stop: 01/02/18 13:34 Last Admin: 01/02/18 14:13 Dose: 1,000 mls/hr eMAR Start Stop Document 01/02/18 14:13 [place] (Rec: 01/02/18 14:13 WA [id number]) Intravenous Solution Start Date 01/02/18 Start Time 14:13 Disposition/Present on Arrival - Present on Arrival Any Indicators Present on Arrival: No History of DVT/PE: No History of Uncontrolled Diabetes: No Urinary Catheter: No History of Decub. Ulcer: No History Surgical Site Infection Following: Orthopedic Procedures - Disposition Have Diagnosis and Disposition been Completed?: Yes Diagnosis: Dehydration, UTI (urinary tract infection), Hospice care patient Disposition: HOME/ ROUTINE Disposition Time: 18:00 Patient Plan: Discharge Condition: FAIR Additional Instructions: Please continue current antibiotics. A urine culture was obtained today, results should be available in 3-4 days and you will be notified if there is any change in treatment. Please coordinate follow-up with hospice care. Return to ER for any concerns or symptoms you wish to have evaluated. Referrals: Rambo Smith DO [Primary Care Provider] - Follow up with primary Forms: [employer] (Kinyarwanda)
[2018-01-02 18:38] VITALS: BP 115/70; PULSE 72; TEMP 98.2; O2SAT 95
== END 2018-01-02 18:29 | disposition home or self-care (01) ==
LOC: ED 12:26
DX: E86.0 Dehydration (principal); N39.0 Urinary tract infection, site not specified; Z51.5 Encounter for palliative care; I10 Essential (primary) hypertension; G20 Parkinson's disease; Z87.891 Personal history of nicotine dependence
CPT/HCPCS: 80053; 81001; 85025; 87086; 99285; J7030; J7040

== ENCOUNTER 2018-06-15 19:43 | Inpatient (IN) | payer MEDICARE, BC ==
[2018-06-15 19:43] VITALS: BMI 22.3
[2018-06-15] MEDS ORDERED: Sodium Chloride 0.9% 1,000 ML IV STA (20:00)
--- NOTE | 2018-06-15 20:02 | ED PDOC ---
Arrival/HPI - General Chief Complaint: Palpitations Time Seen by Provider: 06/15/18 19:46 Historian: Family - Critical Care Critical Care Minutes: 30 minutes Critical Care Time: Excluding Proc Time - History of Present Illness Narrative History of Present Illness (Text): 06/15/18 20:10 72 year old male, with a Past medical history of parkinson's and urinary tract infections, who presents to the Emergency department accompanied by family, complaining of chest pain onset earlier today. Patient is baseline nonverbal and ambulates with wheel chair. Family reports patient is on day 1 of ciprofloxacin for uti. Family endorses decreased appetite in patient and states he has been more fatigued. Family also reports that patient clutched his chest twice earlier today and thought his defibrillator went off, causing them to bring him to the Emergency department. 06/15/18 21:43 Time/Duration: 24 hours Symptom Onset: Gradual Symptom Course: Unchanged Activities at Onset: Light Context: Home Past Medical History - Provider Review Nursing Documentation Reviewed: Yes - Infectious Disease Hx of Infectious Diseases: None - Tetanus Immunization Tetanus Immunization: Unknown - Cardiac Hx Cardiac Disorders: Yes Hx Hypertension: Yes - Pulmonary Hx Respiratory Disorders: No - Neurological Hx Neurological Disorder: Yes Hx Dementia: Yes Hx Parkinson's Disease: Yes - HEENT Hx HEENT Disorder: Yes Hx Cataracts: Yes - Renal Hx Renal Disorder: No - Endocrine/Metabolic Hx Endocrine Disorders: No - Hematological/Oncological Hx Blood Disorders: Yes Hx Anemia: Yes - Integumentary Hx Dermatological Disorder: Yes - Musculoskeletal/Rheumatological Hx Musculoskeletal Disorders: Yes Hx Arthritis: Yes - Gastrointestinal Hx Gastrointestinal Disorders: No - Genitourinary/Gynecological Hx Genitourinary Disorders: Yes Hx Urinary Tract Infection: Yes Other/Comment: [place] - Psychiatric Hx Psychophysiologic Disorder: Yes Hx Depression: Yes Hx Substance Use: No - Past Surgical History Past Surgical History: Unable to Obtain - Surgical History Hx Joint Replacement: Yes (L HIP) Hx Orthopedic Surgery: Yes - Anesthesia Hx Anesthesia Reactions: No (unknown) Hx Malignant Hyperthermia: No (unknown) - Suicidal Assessment Feels Threatened In Home Enviroment: No Family/Social History - Physician Review Nursing Documentation Reviewed: Yes Family/Social History: Unknown Family HX Smoking Status: Former Smoker Hx Alcohol Use: No Hx Substance Use: No Hx Substance Use Treatment: No Allergies/Home Meds Allergies/Adverse Reactions: Allergies No Known Allergies Allergy (Verified 01/02/18 12:32) Home Medications: Home Meds Medication Instructions Recorded Confirmed Aspirin [Ecotrin] 81 mg PO DAILY 09/13/16 01/02/18 Carvedilol [Coreg] 12.5 mg PO BID 09/13/16 01/02/18 Sulfamethoxazole/Trimethoprim 1 tab PO BID 01/02/18 01/02/18 [Bactrim Ds Tablet] Review of Systems - Physician Review All systems were reviewed & negative as marked: Yes - Review of Systems Systems not reviewed;Unavailable: Other (patient is nonverbal) Constitutional: Fatigue Physical Exam Temperature: Febrile Blood Pressure: Normal Pulse: Tachycardic Respiratory Rate: Normal Appearance: Positive for: Well-Appearing, Non-Toxic, Comfortable, Other (pale) Pain Distress: None Mental Status: Positive for: Alert and Oriented X 3 - Systems Exam Head: Present: Atraumatic, Normocephalic Pupils: Present: PERRL Extroacular Muscles: Present: EOMI Conjunctiva: Present: Normal Mouth: Present: Dry (dry mucous membranes) Neck: Present: Normal Range of Motion Respiratory/Chest: Present: Clear to Auscultation, Good Air Exchange. No: Respiratory Distress, Accessory Muscle Use Cardiovascular: Present: Regular Rate and Rhythm, Normal S1, S2. No: Murmurs Abdomen: No: Tenderness, Distention, Peritoneal Signs Back: Present: Normal Inspection Upper Extremity: Present: Normal Inspection. No: Cyanosis, Edema Lower Extremity: Present: Normal Inspection. No: Edema Neurological: Present: Other (non verbal, ) Skin: Present: Warm, Dry, Normal Color. No: Rashes Psychiatric: Present: Alert Medical Decision Making ED Course and Treatment: 06/15/18 20:09 Impression: 72 year old male presents to the Emergency department with chest pain and fatigue Differential Diagnosis included but are not limited to: Plan: -- Basic labs -- Chest X-ray -- Blood culture -- Iv fluids -- Tylenol -- VBG Shock panel -- Reassess and disposition Prior Visits: Notes and results from previous visits were reviewed. Progress Notes: 06/15/18 20:[address] [facility] to send rep to interrogate device 06/15/18 21:19 Witnessed defibrillator shock in ED which was preceded by 6 runs of vtach on monitor. Amiodarone bolus given. Aspirin given. Gave fluids, antibiotics and tylenol for fever. EKG unchanged from prior. Troponin mildly elevated. Consulted patient's boat officer Dr. Avila. Consulted ICU 06/15/18 21:[address] Avila who recommends holding heparin but giving amiodarone drip after bolus. Accepted by ICU. Consulted Dr. Turner, ID at [facility] of Dr. Smith - RAD Interpretation Radiology Orders: 06/15/18 19:59 CHEST PORTABLE [RAD] Stat - Medication Orders Current Medication Orders: Sodium Chloride (Sodium Chloride 0.9%) 1,000 mls @ 999 mls/hr IV .Q1H1M STA Stop: 06/15/18 21:00 - Scribe Statement The provider has reviewed the documentation as recorded by the Kaylaibmaggi Hayes All medical record entries made by the Kaylaibmaggi were at my direction and personally dictated by me. I have reviewed the chart and agree that the record accurately reflects my personal performance of the history, physical exam, medical decision making, and the department course for this patient. I have also personally directed, reviewed, and agree with the discharge instructions and disposition. Disposition/Present on Arrival - Present on Arrival Any Indicators Present on Arrival: No History of DVT/PE: No History of Uncontrolled Diabetes: No Urinary Catheter: No History of Decub. Ulcer: No History Surgical Site Infection Following: Orthopedic Procedures - Disposition Have Diagnosis and Disposition been Completed?: Yes Diagnosis: Parkinson's disease, UTI (urinary tract infection), Ventricular tachycardia Disposition: HOSPITALIZED Disposition Time: 21:30 Patient Plan: ICU Patient Problems: Current Active Problems Problem Status Onset UTI (urinary tract infection) Acute Parkinson's disease Acute Ventricular tachycardia Acute Condition: CRITICAL
[2018-06-15 20:31] LABS: HEMOGLOBIN 11.3 g/dL (14.0-18.0); LYMPH # 0.5 (1.2-3.4); LYMPH % 8.2 % (22.0-35.0); MEAN CELL VOLUME 83.8 fl (80.0-105.0); MEAN CORPUSCULAR HEMOGLOBIN 26.8 pg (25.0-35.0); MEAN PLATELET VOLUME 11.7 fl (7.0-11.0); MONO # 0.4 (0.1-0.6); MONO % 6.7 % (1.0-6.0); RBC 4.21 10^6/uL (3.5-6.1); RED CELL DISTRIBUTION WIDTH 15.2 % (11.5-14.5)
[2018-06-15 20:32] LABS: VENOUS BLOOD GAS BASE EXCESS 1.3 mmol/L (0.0-2.0); VENOUS BLOOD GAS PO2 30 mm/Hg (30-55); VENOUS BLOOD PH 7.45 (7.32-7.43)
[2018-06-15 20:33] LABS: ALBUMIN 3.2 g/dL (3.0-4.8); ALT/SGPT 16 U/L (7-56); AST/SGOT 38 U/L (17-59); BLOOD UREA NITROGEN 29 mg/dL (7-21); CALCIUM 8.9 mg/dL (8.4-10.5); GFR NON-AFRICAN AMERICAN 54
[2018-06-15] MEDS ORDERED: Azithromycin 500MG/NS 250ml 500 MG/250 ML BAG IVPB STA (20:35)
[2018-06-15] MEDS ORDERED: cefTRIAXone 1 gm 1 GM/100 ML BAG IVPB STA (20:36)
[2018-06-15] MEDS ORDERED: Amiodarone 150 mg/D5W 100 ml 150 MG/100 ML BAG IVPB ONE (20:46)
[2018-06-15 20:48] LABS: B-TYPE NATRIURETIC PEPTIDE 16700 pg/mL (0-450)
[2018-06-15 20:49] LABS: INR 1.15; PARTIAL THROMBOPLASTIN TIME 27.7 Seconds (26.9-38.3); PROTHROMBIN TIME 12.8 SECONDS (9.4-12.5)
[2018-06-15 20:53] LABS: PH,URINE 5.5 (4.7-8.0); URINE BILIRUBIN NEGATIVE (NEGATIVE); URINE BLOOD MODERATE (NEGATIVE); URINE GLUCOSE (UA) NEGATIVE (NEGATIVE); URINE LEUKOCYTE ESTERASE MODERATE Leu/uL (NEGATIVE); URINE PROTEIN 30 mg/dL (<30 mg/dL); URINE UROBILINOGEN 0.2 E.U./dL (<1 E.U./dL)
[2018-06-15 20:55] LABS: URINE APPEARANCE CLOUDY (CLEAR); URINE COLOR YELLOW (YELLOW)
[2018-06-15 21:13] LABS: TROPONIN I 0.72 ng/mL
[2018-06-15] MEDS: Amiodarone 360 mg/D5W 200 ml 360 MG/200 ML BAG IV SCH (21:42)
[2018-06-15 21:49] LABS: URINE RBC 15 - 20 /hpf (0-2); URINE WBC 25 - 30 /hpf (0-6)
[2018-06-15 21:50] LABS: URINE AMORPHOUS SEDIMENT FEW /hpf; URINE BACTERIA LARGE /hpf
--- NOTE | 2018-06-15 22:01 | CP.PCM.CON ---
<RaquelAlli - Last Filed: 06/15/18 22:39> History of Present Illness - History of Present Illness History of Present Illness: Alli García DO, PGY-1 ICU Consult Note for Dr. Lebron Consult requested by Dr. Smith/Dr. Lazo CC: episode of SVT s/p ICD firing, UTI HPI: Patient is a 72 year old male with PMH of Parkinson's disease (with dementia, non-verbal at baseline) and cardiomyopathy (s/p ICD placement) who presents with patient's (who provided most of history given patient's baseline mental status) with a concern for an episode of patient clutching his chest more than once today. Patient's states that he is being treated for a UTI currently with his PMD and received his first time dose of ciprofloxacin earlier today. He then appeared to clutch his chest in pain at least twice earlier this afternoon, prompting patient's to bring him to ED for evaluation. In ED, patient was found to have an episode of Vtach. It is likely that ICD has fired. Patient's primary manager ccu, Dr. Reyes, notified and requests patient be placed on amiodarone drip. Patient is admitted to MICU for close monitoring and management of amiodarone drip. 12-point ROS was otherwise unable to be obtained due to patient's baseline mental status. PMD: Luis, Marine Engine [employer]: Eric Past Medical History: Parkinson's disease (with dementia, non-verbal at baseline ) and cardiomyopathy (s/p ICD placement) Past Surgical History: L hip replacement, ICD placement replaced most recently last February Allergies: NKA Home medications: Carbidopa/levodopa (unknown dose, need to confirm with pharmacy in AM), Coreg 12.5 mg BID, ASA 81 mg daily Family History: reviewed, non-contributory Social History: reports prior cigarette smoking but quit 30 years ago, denies EtOH or illicit drug use Pharmacy: [id number] Review of Systems - Review of Systems Systems not reviewed;Unavailable: Dementia, Altered Mental Status Past Patient History - Infectious Disease Hx of Infectious Diseases: None - Tetanus Immunizations Tetanus Immunization: Unknown - Past Social History Smoking Status: Former Smoker - CARDIAC Hx Cardiac Disorders: Yes Hx Hypertension: Yes - PULMONARY Hx Respiratory Disorders: No - NEUROLOGICAL Hx Neurological Disorder: Yes Hx Dementia: Yes Hx Parkinson's Disease: Yes - HEENT Hx HEENT Problems: Yes Hx Cataracts: Yes - RENAL Hx Chronic Kidney Disease: No - ENDOCRINE/METABOLIC Hx Endocrine Disorders: No - HEMATOLOGICAL/ONCOLOGICAL Hx Blood Disorders: Yes Hx Anemia: Yes - INTEGUMENTARY Hx Dermatological Problems: Yes - MUSCULOSKELETAL/RHEUMATOLOGICAL Hx Musculoskeletal Disorders: Yes Hx Arthritis: Yes - GASTROINTESTINAL Hx Gastrointestinal Disorders: No - GENITOURINARY/GYNECOLOGICAL Hx Genitourinary Disorders: Yes Hx Urinary Tract Infection: Yes Other/Comment: J[place] - PSYCHIATRIC Hx Psychophysiologic Disorder: Yes Hx Depression: Yes Hx Substance Use: No - SURGICAL HISTORY Hx Joint Replacement: Yes (L HIP) Hx Orthopedic Surgery: Yes - ANESTHESIA Hx Anesthesia Reactions: No (unknown) Hx Malignant Hyperthermia: No (unknown) Meds Allergies/Adverse Reactions: Allergies Allergy/AdvReac Type Severity Reaction Status Date / Time No Known Allergies Allergy Verified 01/02/18 12:32 - Medications Medications: Current Medications Azithromycin (Zithromax 500mg In Ns) 500 mg in 250 mls @ 167 mls/hr IVPB STAT STA; Protocol Stop: 06/15/18 22:04 Last Admin: 06/15/18 21:32 Dose: Not Given Amiodarone HCl/Dextrose (Nexterone 360 Mg In D5w 200 Ml (Premix)) 360 mg in 200 mls @ 33.333 mls/hr IV .Q6H [facility]; Protocol Last Admin: 06/15/18 21:42 Dose: 33.333 mls/hr Physical Exam - Constitutional Appears: Non-toxic, No Acute Distress Additional comments: Patient is in no acute respiratory distress, able to protect airway, is non- verbal, opens eyes spontaneously, per , patient is at baseline - Head Exam Head Exam: ATRAUMATIC, NORMOCEPHALIC - Eye Exam Eye Exam: EOMI, PERRL - ENT Exam ENT Exam: Mucous Membranes Moist - Neck Exam Neck exam: Positive for: Full Rom, Normal Inspection - Respiratory Exam Respiratory Exam: Clear to Auscultation Bilateral, NORMAL BREATHING PATTERN. absent: Accessory Muscle Use, Rales, Rhonchi, Wheezes, Respiratory Distress - Cardiovascular Exam Cardiovascular Exam: REGULAR RHYTHM, RRR, +S1, +S2. absent: Diastolic murmur, Gallop, Rubs, Systolic Murmur - GI/Abdominal Exam GI & Abdominal Exam: Normal Bowel Sounds, Soft. absent: Guarding, Rebound, Tenderness - Extremities Exam Extremities exam: Positive for: full ROM, normal inspection, pedal pulses present. Negative for: pedal edema - Back Exam Back exam: NORMAL INSPECTION - Neurological Exam Neurological exam: Alert Additional comments: non-verbal, at baseline per 's history - Skin Skin Exam: Dry, Intact, Warm Results - Vital Signs Recent Vital Signs: Last Vital Signs Temp 101 F H 06/15/18 20:20 Pulse 85 06/15/18 21:46 Resp 18 06/15/18 21:46 BP 111/58 L 06/15/18 21:46 Pulse Ox 96 06/15/18 21:46 - Labs Result Diagrams: 06/15/18 20:17 06/15/18 20:17 Labs: Laboratory Results - last 24 hr 06/15/18 06/15/18 06/15/18 20:17 20:17 20:17 WBC 6.0 RBC 4.21 Hgb 11.3 L Hct 35.3 L MCV 83.8 MCH 26.8 MCHC 32.0 RDW 15.2 H Plt Count 128 MPV 11.7 H Neut % (Auto) 85.1 H Lymph % (Auto) 8.2 L [place] % (Auto) 6.7 H Eos % (Auto) 0.0 L Baso % (Auto) 0.0 Lymph # (Auto) 0.5 L [place] # (Auto) 0.4 Eos # (Auto) 0.0 Baso # (Auto) 0.00 Absolute Neuts (auto) 5.11 PT 12.8 H INR 1.15 APTT 27.7 pO2 VBG pH VBG pCO2 VBG HCO3 VBG Total CO2 VBG O2 Sat (Calc) VBG Base Excess VBG Potassium Sodium 137 Chloride 104 Glucose Lactate FiO2 Blood Gas Comments Crit Value Called To Crit Value Called By Blood Gas Notified Time Potassium 3.9 Carbon Dioxide 25 Anion Gap 12 BUN 29 H Creatinine 1.3 Est GFR ( Amer) > 60 Est GFR (Non-Af Amer) 54 Random Glucose 176 H Calcium 8.9 Total Bilirubin 0.4 AST 38 ALT 16 Alkaline Phosphatase 66 Troponin I 0.72 H* D NT-Pro-B Natriuret Pep 56880 H Total Protein 6.4 Albumin 3.2 Globulin 3.2 Albumin/Globulin Ratio 1.0 L TSH 3rd Generation Venous Blood Potassium Urine Color Urine Appearance Urine pH Ur Specific [place] Urine Protein Urine Glucose (UA) Urine Ketones Urine Blood Urine Nitrate Urine Bilirubin Urine Urobilinogen Ur Leukocyte Esterase Urine RBC Urine WBC Ur Epithelial Cells Amorphous Sediment Urine Bacteria Influenza Typ A,B (EIA) 06/15/18 06/15/18 06/15/18 20:17 20:17 20:20 WBC RBC Hgb Hct MCV MCH MCHC RDW Plt Count MPV Neut % (Auto) Lymph % (Auto) [place] % (Auto) Eos % (Auto) Baso % (Auto) Lymph # (Auto) [place] # (Auto) Eos # (Auto) Baso # (Auto) Absolute Neuts (auto) PT INR APTT pO2 30 VBG pH 7.45 H VBG pCO2 36.0 L VBG HCO3 25.0 VBG Total CO2 26.1 VBG O2 Sat (Calc) 66.9 H VBG Base Excess 1.3 VBG Potassium 4.1 Sodium 137.0 Chloride 105.0 Glucose 180 H Lactate 2.0 FiO2 21.0 Blood Gas Comments Lactate Crit Value Called To Chanel shannon Crit Value Called By [facility] Blood Gas Notified Time 2030 Potassium Carbon Dioxide Anion Gap BUN Creatinine Est GFR ( Amer) Est GFR (Non-Af Amer) Random Glucose Calcium Total Bilirubin AST ALT Alkaline Phosphatase Troponin I NT-Pro-B Natriuret Pep Total Protein Albumin Globulin Albumin/Globulin Ratio TSH 3rd Generation 2.00 Venous Blood Potassium 4.1 Urine Color Urine Appearance Urine pH Ur Specific [place] Urine Protein Urine Glucose (UA) Urine Ketones Urine Blood Urine Nitrate Urine Bilirubin Urine Urobilinogen Ur Leukocyte Esterase Urine RBC Urine WBC Ur Epithelial Cells Amorphous Sediment Urine Bacteria Influenza Typ A,B (EIA) Negative for flu a/b 06/15/18 20:45 WBC RBC Hgb Hct MCV MCH MCHC RDW Plt Count MPV Neut % (Auto) Lymph % (Auto) [place] % (Auto) Eos % (Auto) Baso % (Auto) Lymph # (Auto) [place] # (Auto) Eos # (Auto) Baso # (Auto) Absolute Neuts (auto) PT INR APTT pO2 VBG pH VBG pCO2 VBG HCO3 VBG Total CO2 VBG O2 Sat (Calc) VBG Base Excess VBG Potassium Sodium Chloride Glucose Lactate FiO2 Blood Gas Comments Crit Value Called To Crit Value Called By Blood Gas Notified Time Potassium Carbon Dioxide Anion Gap BUN Creatinine Est GFR ( Amer) Est GFR (Non-Af Amer) Random Glucose Calcium Total Bilirubin AST ALT Alkaline Phosphatase Troponin I NT-Pro-B Natriuret Pep Total Protein Albumin Globulin Albumin/Globulin Ratio TSH 3rd Generation Venous Blood Potassium Urine Color Yellow Urine Appearance Cloudy Urine pH 5.5 Ur Specific [place] >= 1.030 Urine Protein 30 H Urine Glucose (UA) Negative Urine Ketones Negative Urine Blood Moderate H Urine Nitrate Positive H Urine Bilirubin Negative Urine Urobilinogen 0.2 Ur Leukocyte Esterase Moderate H Urine RBC 15 - 20 H Urine WBC 25 - 30 H Ur Epithelial Cells 6 - 8 H Amorphous Sediment Few Urine Bacteria Large Influenza Typ A,B (EIA) Assessment & Plan - Assessment and Plan (Free Text) Assessment: 72 yo M with PMH of Parkinson's disease (with dementia, non-verbal at baseline) and cardiomyopathy (s/p ICD placement) admitted following episodes of Vtach and ICD firing. Patient is admitted to MICU for management of amiodarone drip and aggressive monitoring. Plan: Episode of Vtach Patient's clutching of chest likely due to ICD firing Troponin elevation may be 2/2 ICD firing, but will continue to trend q6h x [address] Reyes who requests amiodarone drip but states no need for heparin drip at this time Amiodarone drip started at 1 mg/min x 6 hours, then decrease to 1/2 mg /min x 18 hours Keep Mg > 2 and K > 4, monitor electrolytes closely TSH WNL, f/u lipid panel, A1c results Patient has history of cardiomyopathy but no record of prior TTE, will get TTE for this admission Cardiology following, all recs appreciated UTI Started on rocephin Recommend d/c zithromax to avoid additional QT prolongation F/u urine, blood cx results ID consult placed, all recs appreciated Parkinson's disease Code status discussed with patient's who is POA Patient is full code Jackson placed for close UOP monitoring Verify with pharmacy in AM and restart patient's home carbidopa/levodopa in AM DVT/GI PPX: SC heparin/protonix Full Code NPO pending swallow study, may resume HHD after Monitor in MICU Patient seen, examined with, and plan discussed with my attending Dr. Vi García D.O. IM Resident PGY-1 <Opal Lebron - Last Filed: 06/16/18 19:32> Meds - Medications Medications: Current Medications Amiodarone HCl (Cordarone) 400 mg PO BID [facility] Last Admin: 06/16/18 19:09 Dose: 400 mg Aspirin (Ecotrin) 81 mg PO DAILY [facility] Last Admin: 06/16/18 09:14 Dose: 81 mg Carbidopa/Levodopa (Sinemet) 1 tab PO TID [facility] Last Admin: 06/16/18 19:09 Dose: 1 tab Carvedilol (Coreg) 12.5 mg PO BID [facility] Last Admin: 06/16/18 19:09 Dose: 12.5 mg Heparin Sodium (Porcine) (Heparin) 5,000 units SC Q8 [facility]; Protocol Last Admin: 06/16/18 15:51 Dose: 5,000 units Amiodarone HCl/Dextrose (Nexterone 360 Mg In D5w 200 Ml (Premix)) 360 mg in 200 mls @ 16.667 mls/hr IV .Q12H [facility]; Protocol Last Admin: 06/16/18 07:15 Dose: 16.667 mls/hr Cefepime HCl (Maxipime 1gm) 1 gm in 100 mls @ 100 mls/hr IVPB Q12 [facility]; Protocol Last Admin: 06/16/18 15:51 Dose: 100 mls/hr Pantoprazole Sodium (Protonix Ec Tab) 40 mg PO ACB [facility] Results - Vital Signs Recent Vital Signs: Last Vital Signs Temp 99.6 F 06/15/18 23:10 Pulse 73 06/16/18 19:09 Resp 20 06/16/18 18:50 BP 112/60 06/16/18 19:09 Pulse Ox 96 06/16/18 18:50 - Labs Result Diagrams: 06/16/18 05:30 06/16/18 05:30 Labs: Laboratory Results - last 24 hr 06/15/18 06/15/18 06/15/18 20:17 20:17 20:17 WBC 6.0 RBC 4.21 Hgb 11.3 L Hct 35.3 L MCV 83.8 MCH 26.8 MCHC 32.0 RDW 15.2 H Plt Count 128 MPV 11.7 H Neut % (Auto) 85.1 H Lymph % (Auto) 8.2 L [place] % (Auto) 6.7 H Eos % (Auto) 0.0 L Baso % (Auto) 0.0 Lymph # (Auto) 0.5 L [place] # (Auto) 0.4 Eos # (Auto) 0.0 Baso # (Auto) 0.00 Absolute Neuts (auto) 5.11 PT 12.8 H INR 1.15 APTT 27.7 pO2 VBG pH VBG pCO2 VBG HCO3 VBG Total CO2 VBG O2 Sat (Calc) VBG Base Excess VBG Potassium Sodium 137 Chloride 104 Glucose Lactate FiO2 Blood Gas Comments Crit Value Called To Crit Value Called By Blood Gas Notified Time Potassium 3.9 Carbon Dioxide 25 Anion Gap 12 BUN 29 H Creatinine 1.3 Est GFR ( Amer) > 60 Est GFR (Non-Af Amer) 54 Random Glucose 176 H Hemoglobin A1c Calcium 8.9 Phosphorus Magnesium Total Bilirubin 0.4 AST 38 ALT 16 Alkaline Phosphatase 66 Troponin I 0.72 H* D NT-Pro-B Natriuret Pep 46289 H Total Protein 6.4 Albumin 3.2 Globulin 3.2 Albumin/Globulin Ratio 1.0 L Triglycerides Cholesterol LDL Cholesterol Direct HDL Cholesterol TSH 3rd Generation Venous Blood Potassium Urine Color Urine Appearance Urine pH Ur Specific [place] Urine Protein Urine Glucose (UA) Urine Ketones Urine Blood Urine Nitrate Urine Bilirubin Urine Urobilinogen Ur Leukocyte Esterase Urine RBC Urine WBC Ur Epithelial Cells Amorphous Sediment Urine Bacteria Influenza Typ A,B (EIA) 06/15/18 06/15/18 06/15/18 20:17 20:17 20:17 WBC RBC Hgb Hct MCV MCH MCHC RDW Plt Count MPV Neut % (Auto) Lymph % (Auto) [place] % (Auto) Eos % (Auto) Baso % (Auto) Lymph # (Auto) [place] # (Auto) Eos # (Auto) Baso # (Auto) Absolute Neuts (auto) PT INR APTT pO2 30 VBG pH 7.45 H VBG pCO2 36.0 L VBG HCO3 25.0 VBG Total CO2 26.1 VBG O2 Sat (Calc) 66.9 H VBG Base Excess 1.3 VBG Potassium 4.1 Sodium 137.0 Chloride 105.0 Glucose 180 H Lactate 2.0 FiO2 21.0 Blood Gas Comments Lactate Crit Value Called To Chanel shiva Crit Value Called By George Blood Gas Notified Time 2030 Potassium Carbon Dioxide Anion Gap BUN Creatinine Est GFR ( Amer) Est GFR (Non-Af Amer) Random Glucose Hemoglobin A1c Calcium Phosphorus 2.3 L Magnesium 2.0 Total Bilirubin AST ALT Alkaline Phosphatase Troponin I NT-Pro-B Natriuret Pep Total Protein Albumin Globulin Albumin/Globulin Ratio Triglycerides Cholesterol LDL Cholesterol Direct HDL Cholesterol TSH 3rd Generation 2.00 Venous Blood Potassium 4.1 Urine Color Urine Appearance Urine pH Ur Specific [place] Urine Protein Urine Glucose (UA) Urine Ketones Urine Blood Urine Nitrate Urine Bilirubin Urine Urobilinogen Ur Leukocyte Esterase Urine RBC Urine WBC Ur Epithelial Cells Amorphous Sediment Urine Bacteria Influenza Typ A,B (EIA) 06/15/18 06/15/18 06/15/18 20:20 20:45 23:30 WBC RBC Hgb Hct MCV MCH MCHC RDW Plt Count MPV Neut % (Auto) Lymph % (Auto) [place] % (Auto) Eos % (Auto) Baso % (Auto) Lymph # (Auto) [place] # (Auto) Eos # (Auto) Baso # (Auto) Absolute Neuts (auto) PT INR APTT pO2 93 H VBG pH 7.38 VBG pCO2 39.0 L VBG HCO3 23.1 VBG Total CO2 24.3 VBG O2 Sat (Calc) 97.9 H VBG Base Excess -1.8 L VBG Potassium 3.6 Sodium 138.0 Chloride 107.0 Glucose 129 H Lactate 0.7 FiO2 21.0 Blood Gas Comments Crit Value Called To Crit Value Called By Blood Gas Notified Time Potassium Carbon Dioxide Anion Gap BUN Creatinine Est GFR ( Amer) Est GFR (Non-Af Amer) Random Glucose Hemoglobin A1c Calcium Phosphorus Magnesium Total Bilirubin AST ALT Alkaline Phosphatase Troponin I NT-Pro-B Natriuret Pep Total Protein Albumin Globulin Albumin/Globulin Ratio Triglycerides Cholesterol LDL Cholesterol Direct HDL Cholesterol TSH 3rd Generation Venous Blood Potassium 3.6 Urine Color Yellow Urine Appearance Cloudy Urine pH 5.5 Ur Specific [place] >= 1.030 Urine Protein 30 H Urine Glucose (UA) Negative Urine Ketones Negative Urine Blood Moderate H Urine Nitrate Positive H Urine Bilirubin Negative Urine Urobilinogen 0.2 Ur Leukocyte Esterase Moderate H Urine RBC 15 - 20 H Urine WBC 25 - 30 H Ur Epithelial Cells 6 - 8 H Amorphous Sediment Few Urine Bacteria Large Influenza Typ A,B (EIA) Negative for flu a/b 06/16/18 06/16/18 06/16/18 02:05 05:30 05:30 WBC 6.0 RBC 4.19 Hgb 10.8 L Hct 35.0 L MCV 83.5 MCH 25.8 MCHC 30.9 L RDW 15.3 H Plt Count 120 MPV 11.5 H Neut % (Auto) 75.4 H Lymph % (Auto) 13.7 L [place] % (Auto) 10.5 H Eos % (Auto) 0.2 L Baso % (Auto) 0.2 Lymph # (Auto) 0.8 L [place] # (Auto) 0.6 Eos # (Auto) 0.0 Baso # (Auto) 0.01 Absolute Neuts (auto) 4.52 PT INR APTT pO2 VBG pH VBG pCO2 VBG HCO3 VBG Total CO2 VBG O2 Sat (Calc) VBG Base Excess VBG Potassium Sodium 139 Chloride 109 H Glucose Lactate FiO2 Blood Gas Comments Crit Value Called To Crit Value Called By Blood Gas Notified Time Potassium 3.7 Carbon Dioxide 23 Anion Gap 11 BUN 23 H Creatinine 1.2 Est GFR ( Amer) > 60 Est GFR (Non-Af Amer) 59 Random Glucose 102 Hemoglobin A1c Calcium 8.6 Phosphorus 3.4 Magnesium 2.0 Total Bilirubin 0.3 AST 37 ALT 21 Alkaline Phosphatase 55 Troponin I 1.54 H* D NT-Pro-B Natriuret Pep Total Protein 5.8 Albumin 3.0 Globulin 2.8 Albumin/Globulin Ratio 1.1 Triglycerides 142 Cholesterol 153 LDL Cholesterol Direct 85 HDL Cholesterol 30 TSH 3rd Generation Venous Blood Potassium Urine Color Urine Appearance Urine pH Ur Specific [place] Urine Protein Urine Glucose (UA) Urine Ketones Urine Blood Urine Nitrate Urine Bilirubin Urine Urobilinogen Ur Leukocyte Esterase Urine RBC Urine WBC Ur Epithelial Cells Amorphous Sediment Urine Bacteria Influenza Typ A,B (EIA) 06/16/18 06/16/18 05:30 05:30 WBC RBC Hgb Hct MCV MCH MCHC RDW Plt Count MPV Neut % (Auto) Lymph % (Auto) [place] % (Auto) Eos % (Auto) Baso % (Auto) Lymph # (Auto) [place] # (Auto) Eos # (Auto) Baso # (Auto) Absolute Neuts (auto) PT INR APTT pO2 VBG pH VBG pCO2 VBG HCO3 VBG Total CO2 VBG O2 Sat (Calc) VBG Base Excess VBG Potassium Sodium Chloride Glucose Lactate FiO2 Blood Gas Comments Crit Value Called To Crit Value Called By Blood Gas Notified Time Potassium Carbon Dioxide Anion Gap BUN Creatinine Est GFR ( Amer) Est GFR (Non-Af Amer) Random Glucose Hemoglobin A1c 5.9 Calcium Phosphorus Magnesium Total Bilirubin AST ALT Alkaline Phosphatase Troponin I 1.01 H* D NT-Pro-B Natriuret Pep Total Protein Albumin Globulin Albumin/Globulin Ratio Triglycerides Cholesterol LDL Cholesterol Direct HDL Cholesterol TSH 3rd Generation Venous Blood Potassium Urine Color Urine Appearance Urine pH Ur Specific [place] Urine Protein Urine Glucose (UA) Urine Ketones Urine Blood Urine Nitrate Urine Bilirubin Urine Urobilinogen Ur Leukocyte Esterase Urine RBC Urine WBC Ur Epithelial Cells Amorphous Sediment Urine Bacteria Influenza Typ A,B (EIA) Attending/Attestation - Attestation I have personally seen and examined this patient.: Yes I have fully participated in the care of the patient.: Yes I have reviewed all pertinent clinical information: Yes Notes (Text): 06/16/18 19:31 seen and examined. Discussed with resident. Exam is significant for pt. non verbal at baseline. Vtach was loaded with Amiodarone 150 mg IV x 1 by ER. Will start amiodarone gtt. Troponin leak 2/2 AICD firing, will trend and interogate [facility] AICD. Rocephin for UTI.
[2018-06-16 00:48] LABS: VENOUS BLOOD GAS BASE EXCESS -1.8 mmol/L (0.0-2.0); VENOUS BLOOD GAS PO2 93 mm/Hg (30-55); VENOUS BLOOD PH 7.38 (7.32-7.43)
--- NOTE | 2018-06-16 01:59 | PCM.SEPTIC ---
<Alli García - Last Filed: 06/16/18 01:57> Sepsis Progress Note - Reassessment Type Date of Evaluation: 06/16/18 Time of Evaluation: 01:55 Reassessment Type: Non-invasive reassessment - Non Invasive Reassessment Were the most recent vital sign reviewed: Yes Vital Sign (Latest): Temp Pulse Resp BP Pulse Ox 99.6 F 69 14 98/51 L 95 06/15/18 23:10 06/16/18 00:40 06/16/18 00:40 06/16/18 00:36 06/16/18 00:40 Cardiovascular: Yes: Regular Rate, Rhythm. No: Gallop, Murmur, Friction Rub Respiratory: Yes: Rhonchi. No: Decreased Breath Sounds, Rales, Wheezing Capillary Refill: Normal (Less than 2 sec) Pulses: Normal Radial, Normal Dorsalis Pedis, Normal Posterior Tibialis Skin: Warm, Dry <Opal Lebron - Last Filed: 06/16/18 19:33> Sepsis Progress Note - Non Invasive Reassessment Vital Sign (Latest): Temp Pulse Resp BP Pulse Ox 99.6 F 73 20 112/60 96 06/15/18 23:10 06/16/18 19:09 06/16/18 18:50 06/16/18 19:09 06/16/18 18:50 Attending/Attestation - Attestation I have personally seen and examined this patient.: Yes I have fully participated in the care of the patient.: Yes I have reviewed all pertinent clinical information, including history, physical exam and plan: Yes
[2018-06-16] MEDS: Amiodarone 360 mg/D5W 200 ml 360 MG/200 ML BAG IV SCH (02:30)
[2018-06-16 06:43] LABS: BASO # 0.01 K/mm3 (0.0-2.0); BASO % 0.2 % (0.0-3.0); EOS % 0.2 % (1.5-5.0); HEMOGLOBIN 10.8 g/dL (14.0-18.0); LYMPH # 0.8 (1.2-3.4); LYMPH % 13.7 % (22.0-35.0); MEAN CELL VOLUME 83.5 fl (80.0-105.0); MEAN CORPUSCULAR HEMOGLOBIN 25.8 pg (25.0-35.0); MEAN CORPUSCULAR HGB CONC 30.9 g/dl (31.0-37.0); MEAN PLATELET VOLUME 11.5 fl (7.0-11.0); MONO # 0.6 (0.1-0.6); MONO % 10.5 % (1.0-6.0); RBC 4.19 10^6/uL (3.5-6.1); RED CELL DISTRIBUTION WIDTH 15.3 % (11.5-14.5)
[2018-06-16 07:02] LABS: ALB/GLOB RATIO 1.1 (1.1-1.8); ALT/SGPT 21 U/L (7-56); AST/SGOT 37 U/L (17-59); BLOOD UREA NITROGEN 23 mg/dL (7-21); CALCIUM 8.6 mg/dL (8.4-10.5); GFR NON-AFRICAN AMERICAN 59; HDL CHOLESTEROL 30 mg/dL (29-60)
[2018-06-16 07:08] LABS: LDL CHOLESTEROL 85 mg/dL (0-129)
[2018-06-16] MEDS ORDERED: Vancomycin 1.5 GM in Sodium Chloride 0.9% 500 ML IVPB ONE (07:20)
[2018-06-16] MEDS ORDERED: Amiodarone 360 mg/D5W 200 ml 360 MG/200 ML BAG IV SCH (07:41)
--- NOTE | 2018-06-16 07:51 | RAD ---
Date of service: 06/15/2018 HISTORY: cough COMPARISON: 08/26/2017 FINDINGS: LUNGS: No active pulmonary disease. PLEURA: No significant pleural effusion identified, no pneumothorax apparent. CARDIOVASCULAR: No aortic atherosclerotic calcification present. Mild cardiomegaly. No pulmonary vascular congestion. OSSEOUS STRUCTURES: No significant abnormalities. VISUALIZED UPPER ABDOMEN: Normal. OTHER FINDINGS: Single lead pacemaker IMPRESSION: No active disease.
[2018-06-16] MEDS ORDERED: cefTRIAXone 1 gm 1 GM/100 ML BAG IVPB SCH ×2 (10:00)
--- NOTE | 2018-06-16 11:27 | CP.CCUPN ---
<MikeMamadoudakota Morin - Last Filed: 06/16/18 11:55> CCU Subjective - Physician Review Events Since Last Encounter (Free Text): 06/16/18 11:27 at bedside, pt seems to be improving Subjective (Free Text): 06/16/18 11:28 Pt seen and examined, pt is non verbal, in NAD CCU Objective - Vital Signs / Intake & Output Vital Signs (Last 4 hours): Vital Signs Pulse BP 06/16/18 09:12 72 102/54 L 06/16/18 09:11 74 102/54 L Intake and Output (Last 8hrs): Intake & Output 06/15/18 06/16/18 06/16/18 22:59 06:59 14:59 Intake Total 1216 Output Total 400 Balance 816 Weight 125 lb Intake: IV 1116 LR 720 amiodarone 396 Oral 100 Output: Urine 400 Urethral (Brewer) 400 Other: Voiding Method Indwelling Catheter - Physical Exam Head: Positive for: Atraumatic, Normocephalic Pupils: Positive for: PERRL Extroacular Muscles: Positive for: EOMI Conjunctiva: Positive for: Normal Neck: Positive for: Normal Range of Motion Respiratory/Chest: Positive for: Clear to Auscultation, Good Air Exchange. Negative for: Respiratory Distress, Accessory Muscle Use Cardiovascular: Positive for: Regular Rate and Rhythm, Normal S1, S2. Negative for: Murmurs Abdomen: Negative for: Tenderness, Distention, Peritoneal Signs Back: Positive for: Normal Inspection Upper Extremity: Positive for: Normal Inspection. Negative for: Cyanosis, Edema Lower Extremity: Positive for: Normal Inspection. Negative for: Edema Neurological: Positive for: Other (non verbal, ) Skin: Positive for: Warm, Dry, Normal Color. Negative for: Rashes Psychiatric: Positive for: Alert - Medications Active Medications: Active Medications Generic Name Dose Route Start Last Admin Trade Name Freq PRN Reason Stop Dose Admin Amiodarone HCl 400 mg 06/16/18 10:00 06/16/18 09:11 Cordarone PO 400 mg BID BERONICA Administration Aspirin 81 mg 06/16/18 10:00 06/16/18 09:14 Ecotrin PO 81 mg DAILY BERONICA Administration Carbidopa/Levodopa 1 tab 06/16/18 10:00 06/16/18 09:21 Sinemet PO 1 tab TID BERONICA Administration Carvedilol 12.5 mg 06/16/18 10:00 06/16/18 09:12 Coreg PO 12.5 mg BID BERONICA Administration Heparin Sodium (Porcine) 5,000 units 06/16/18 06:00 06/16/18 05:52 Heparin SC 5,000 units Q8 BERONICA Administration Protocol Ceftriaxone Sodium 1 gm in 100 mls @ 100 mls/hr 06/16/18 10:00 06/16/18 09:16 Rocephin 1 Gram Ivpb IVPB 100 mls/hr DAILY BERONICA Administration Protocol Amiodarone HCl/Dextrose 360 mg in 200 mls @ 16.667 mls/hr 06/16/18 07:41 06/16/18 07:15 Nexterone 360 Mg In D5w 200 Ml (Premix) IV 16.667 mls/hr .Q12H BERONICA Administration Protocol 0.5 MG/MIN Pantoprazole Sodium 40 mg 06/16/18 10:00 06/16/18 09:14 Protonix Inj IVP 40 mg DAILY BERONICA Administration - Patient Studies Lab Studies: Lab Studies 06/16/18 06/16/18 06/16/18 Range/Units 05:30 05:30 05:30 WBC 6.0 (4.5-11.0) 10^3/uL RBC 4.19 (3.5-6.1) 10^6/uL Hgb 10.8 L (14.0-18.0) g/dL Hct 35.0 L (42.0-52.0) % MCV 83.5 (80.0-105.0) fl MCH 25.8 (25.0-35.0) pg MCHC 30.9 L (31.0-37.0) g/dl RDW 15.3 H (11.5-14.5) % Plt Count 120 (120.0-450.0) 10^3/uL MPV 11.5 H (7.0-11.0) fl Neut % (Auto) 75.4 H (50.0-68.0) % Lymph % (Auto) 13.7 L (22.0-35.0) % [place] % (Auto) 10.5 H (1.0-6.0) % Eos % (Auto) 0.2 L (1.5-5.0) % Baso % (Auto) 0.2 (0.0-3.0) % Lymph # (Auto) 0.8 L (1.2-3.4) [place] # (Auto) 0.6 (0.1-0.6) Eos # (Auto) 0.0 (0.0-0.7) Baso # (Auto) 0.01 (0.0-2.0) K/mm3 Absolute Neuts (auto) 4.52 (1.4-6.5) PT (9.4-12.5) SECONDS INR APTT (26.9-38.3) Seconds pO2 (30-55) mm/Hg VBG pH (7.32-7.43) VBG pCO2 (40-60) VBG HCO3 (21-28) mmol/l VBG Total CO2 (22-28) mmol.L VBG O2 Sat (Calc) (40-65) % VBG Base Excess (0.0-2.0) mmol/L VBG Potassium (3.6-5.2) mmol/L Sodium 139 (132-148) mmol/L Chloride 109 H (98-107) mmol/L Glucose (75-110) mg/dl Lactate (0.7-2.1) mmol/L FiO2 % Blood Gas Comments Crit Value Called To Crit Value Called By Blood Gas Notified Time Potassium 3.7 (3.6-5.0) mmol/L Carbon Dioxide 23 (21-33) mmol/L Anion Gap 11 (10-20) BUN 23 H (7-21) mg/dL Creatinine 1.2 (0.8-1.5) mg/dl Est GFR ( Amer) > 60 Est GFR (Non-Af Amer) 59 Random Glucose 102 (70-110) mg/dL Calcium 8.6 (8.4-10.5) mg/dL Phosphorus 3.4 (2.5-4.5) mg/dL Magnesium 2.0 (1.7-2.2) mg/dL Total Bilirubin 0.3 (0.2-1.3) mg/dL AST 37 (17-59) U/L ALT 21 (7-56) U/L Alkaline Phosphatase 55 (38-126) U/L Troponin I 1.01 H* D ng/mL NT-Pro-B Natriuret Pep (0-450) pg/mL Total Protein 5.8 (5.8-8.3) g/dL Albumin 3.0 (3.0-4.8) g/dL Globulin 2.8 gm/dL Albumin/Globulin Ratio 1.1 (1.1-1.8) Triglycerides 142 (35-160) mg/dL Cholesterol 153 (130-200) mg/dL LDL Cholesterol Direct 85 (0-129) mg/dL HDL Cholesterol 30 (29-60) mg/dL TSH 3rd Generation (0.46-4.68) mIU/mL Venous Blood Potassium (3.6-5.2) mmol/L Urine Color (YELLOW) Urine Appearance (CLEAR) Urine pH (4.7-8.0) Ur Specific [place] (1.005-1.035) Urine Protein (<30 mg/dL) mg/dL Urine Glucose (UA) (NEGATIVE) mg/dL Urine Ketones (NEGATIVE) mg/dL Urine Blood (NEGATIVE) Urine Nitrate (NEGATIVE) Urine Bilirubin (NEGATIVE) Urine Urobilinogen (<1 E.U./dL) E.U./dL Ur Leukocyte Esterase (NEGATIVE) Lisa/uL Urine RBC (0-2) /hpf Urine WBC (0-6) /hpf Ur Epithelial Cells (0-5) /hpf Amorphous Sediment (NONE) /hpf Urine Bacteria (NONE) /hpf Influenza Typ A,B (EIA) (NEGATIVE) 06/16/18 06/15/18 06/15/18 Range/Units 02:05 23:30 20:45 WBC (4.5-11.0) 10^3/uL RBC (3.5-6.1) 10^6/uL Hgb (14.0-18.0) g/dL Hct (42.0-52.0) % MCV (80.0-105.0) fl MCH (25.0-35.0) pg MCHC (31.0-37.0) g/dl RDW (11.5-14.5) % Plt Count (120.0-450.0) 10^3/uL MPV (7.0-11.0) fl Neut % (Auto) (50.0-68.0) % Lymph % (Auto) (22.0-35.0) % [place] % (Auto) (1.0-6.0) % Eos % (Auto) (1.5-5.0) % Baso % (Auto) (0.0-3.0) % Lymph # (Auto) (1.2-3.4) [place] # (Auto) (0.1-0.6) Eos # (Auto) (0.0-0.7) Baso # (Auto) (0.0-2.0) K/mm3 Absolute Neuts (auto) (1.4-6.5) PT (9.4-12.5) SECONDS INR APTT (26.9-38.3) Seconds pO2 93 H (30-55) mm/Hg VBG pH 7.38 (7.32-7.43) VBG pCO2 39.0 L (40-60) VBG HCO3 23.1 (21-28) mmol/l VBG Total CO2 24.3 (22-28) mmol.L VBG O2 Sat (Calc) 97.9 H (40-65) % VBG Base Excess -1.8 L (0.0-2.0) mmol/L VBG Potassium 3.6 (3.6-5.2) mmol/L Sodium 138.0 (132-148) mmol/L Chloride 107.0 (98-107) mmol/L Glucose 129 H (75-110) mg/dl Lactate 0.7 (0.7-2.1) mmol/L FiO2 21.0 % Blood Gas Comments Crit Value Called To Crit Value Called By Blood Gas Notified Time Potassium (3.6-5.0) mmol/L Carbon Dioxide (21-33) mmol/L Anion Gap (10-20) BUN (7-21) mg/dL Creatinine (0.8-1.5) mg/dl Est GFR ( Amer) Est GFR (Non-Af Amer) Random Glucose (70-110) mg/dL Calcium (8.4-10.5) mg/dL Phosphorus (2.5-4.5) mg/dL Magnesium (1.7-2.2) mg/dL Total Bilirubin (0.2-1.3) mg/dL AST (17-59) U/L ALT (7-56) U/L Alkaline Phosphatase (38-126) U/L Troponin I 1.54 H* D ng/mL NT-Pro-B Natriuret Pep (0-450) pg/mL Total Protein (5.8-8.3) g/dL Albumin (3.0-4.8) g/dL Globulin gm/dL Albumin/Globulin Ratio (1.1-1.8) Triglycerides (35-160) mg/dL Cholesterol (130-200) mg/dL LDL Cholesterol Direct (0-129) mg/dL HDL Cholesterol (29-60) mg/dL TSH 3rd Generation (0.46-4.68) mIU/mL Venous Blood Potassium 3.6 (3.6-5.2) mmol/L Urine Color Yellow (YELLOW) Urine Appearance Cloudy (CLEAR) Urine pH 5.5 (4.7-8.0) Ur Specific [place] >= 1.030 (1.005-1.035) Urine Protein 30 H (<30 mg/dL) mg/dL Urine Glucose (UA) Negative (NEGATIVE) mg/dL Urine Ketones Negative (NEGATIVE) mg/dL Urine Blood Moderate H (NEGATIVE) Urine Nitrate Positive H (NEGATIVE) Urine Bilirubin Negative (NEGATIVE) Urine Urobilinogen 0.2 (<1 E.U./dL) E.U./dL Ur Leukocyte Esterase Moderate H (NEGATIVE) Lisa/uL Urine RBC 15 - 20 H (0-2) /hpf Urine WBC 25 - 30 H (0-6) /hpf Ur Epithelial Cells 6 - 8 H (0-5) /hpf Amorphous Sediment Few (NONE) /hpf Urine Bacteria Large (NONE) /hpf Influenza Typ A,B (EIA) (NEGATIVE) 06/15/18 06/15/18 06/15/18 Range/Units 20:20 20:17 20:17 WBC (4.5-11.0) 10^3/uL RBC (3.5-6.1) 10^6/uL Hgb (14.0-18.0) g/dL Hct (42.0-52.0) % MCV (80.0-105.0) fl MCH (25.0-35.0) pg MCHC (31.0-37.0) g/dl RDW (11.5-14.5) % Plt Count (120.0-450.0) 10^3/uL MPV (7.0-11.0) fl Neut % (Auto) (50.0-68.0) % Lymph % (Auto) (22.0-35.0) % [place] % (Auto) (1.0-6.0) % Eos % (Auto) (1.5-5.0) % Baso % (Auto) (0.0-3.0) % Lymph # (Auto) (1.2-3.4) [place] # (Auto) (0.1-0.6) Eos # (Auto) (0.0-0.7) Baso # (Auto) (0.0-2.0) K/mm3 Absolute Neuts (auto) (1.4-6.5) PT (9.4-12.5) SECONDS INR APTT (26.9-38.3) Seconds pO2 30 (30-55) mm/Hg VBG pH 7.45 H (7.32-7.43) VBG pCO2 36.0 L (40-60) VBG HCO3 25.0 (21-28) mmol/l VBG Total CO2 26.1 (22-28) mmol.L VBG O2 Sat (Calc) 66.9 H (40-65) % VBG Base Excess 1.3 (0.0-2.0) mmol/L VBG Potassium 4.1 (3.6-5.2) mmol/L Sodium 137.0 (132-148) mmol/L Chloride 105.0 (98-107) mmol/L Glucose 180 H (75-110) mg/dl Lactate 2.0 (0.7-2.1) mmol/L FiO2 21.0 % Blood Gas Comments Lactate Crit Value Called To Chanel shannon Crit Value Called By [facility] Blood Gas Notified Time 2030 Potassium (3.6-5.0) mmol/L Carbon Dioxide (21-33) mmol/L Anion Gap (10-20) BUN (7-21) mg/dL Creatinine (0.8-1.5) mg/dl Est GFR ( Amer) Est GFR (Non-Af Amer) Random Glucose (70-110) mg/dL Calcium (8.4-10.5) mg/dL Phosphorus 2.3 L (2.5-4.5) mg/dL Magnesium 2.0 (1.7-2.2) mg/dL Total Bilirubin (0.2-1.3) mg/dL AST (17-59) U/L ALT (7-56) U/L Alkaline Phosphatase (38-126) U/L Troponin I ng/mL NT-Pro-B Natriuret Pep (0-450) pg/mL Total Protein (5.8-8.3) g/dL Albumin (3.0-4.8) g/dL Globulin gm/dL Albumin/Globulin Ratio (1.1-1.8) Triglycerides (35-160) mg/dL Cholesterol (130-200) mg/dL LDL Cholesterol Direct (0-129) mg/dL HDL Cholesterol (29-60) mg/dL TSH 3rd Generation (0.46-4.68) mIU/mL Venous Blood Potassium 4.1 (3.6-5.2) mmol/L Urine Color (YELLOW) Urine Appearance (CLEAR) Urine pH (4.7-8.0) Ur Specific [place] (1.005-1.035) Urine Protein (<30 mg/dL) mg/dL Urine Glucose (UA) (NEGATIVE) mg/dL Urine Ketones (NEGATIVE) mg/dL Urine Blood (NEGATIVE) Urine Nitrate (NEGATIVE) Urine Bilirubin (NEGATIVE) Urine Urobilinogen (<1 E.U./dL) E.U./dL Ur Leukocyte Esterase (NEGATIVE) Lisa/uL Urine RBC (0-2) /hpf Urine WBC (0-6) /hpf Ur Epithelial Cells (0-5) /hpf Amorphous Sediment (NONE) /hpf Urine Bacteria (NONE) /hpf Influenza Typ A,B (EIA) Negative for flu a/b (NEGATIVE) 06/15/18 06/15/18 06/15/18 Range/Units 20:17 20:17 20:17 WBC (4.5-11.0) 10^3/uL RBC (3.5-6.1) 10^6/uL Hgb (14.0-18.0) g/dL Hct (42.0-52.0) % MCV (80.0-105.0) fl MCH (25.0-35.0) pg MCHC (31.0-37.0) g/dl RDW (11.5-14.5) % Plt Count (120.0-450.0) 10^3/uL MPV (7.0-11.0) fl Neut % (Auto) (50.0-68.0) % Lymph % (Auto) (22.0-35.0) % [place] % (Auto) (1.0-6.0) % Eos % (Auto) (1.5-5.0) % Baso % (Auto) (0.0-3.0) % Lymph # (Auto) (1.2-3.4) [place] # (Auto) (0.1-0.6) Eos # (Auto) (0.0-0.7) Baso # (Auto) (0.0-2.0) K/mm3 Absolute Neuts (auto) (1.4-6.5) PT 12.8 H (9.4-12.5) SECONDS INR 1.15 APTT 27.7 (26.9-38.3) Seconds pO2 (30-55) mm/Hg VBG pH (7.32-7.43) VBG pCO2 (40-60) VBG HCO3 (21-28) mmol/l VBG Total CO2 (22-28) mmol.L VBG O2 Sat (Calc) (40-65) % VBG Base Excess (0.0-2.0) mmol/L VBG Potassium (3.6-5.2) mmol/L Sodium 137 (132-148) mmol/L Chloride 104 (98-107) mmol/L Glucose (75-110) mg/dl Lactate (0.7-2.1) mmol/L FiO2 % Blood Gas Comments Crit Value Called To Crit Value Called By Blood Gas Notified Time Potassium 3.9 (3.6-5.0) mmol/L Carbon Dioxide 25 (21-33) mmol/L Anion Gap 12 (10-20) BUN 29 H (7-21) mg/dL Creatinine 1.3 (0.8-1.5) mg/dl Est GFR ( Amer) > 60 Est GFR (Non-Af Amer) 54 Random Glucose 176 H (70-110) mg/dL Calcium 8.9 (8.4-10.5) mg/dL Phosphorus (2.5-4.5) mg/dL Magnesium (1.7-2.2) mg/dL Total Bilirubin 0.4 (0.2-1.3) mg/dL AST 38 (17-59) U/L ALT 16 (7-56) U/L Alkaline Phosphatase 66 (38-126) U/L Troponin I 0.72 H* D ng/mL NT-Pro-B Natriuret Pep 16394 H (0-450) pg/mL Total Protein 6.4 (5.8-8.3) g/dL Albumin 3.2 (3.0-4.8) g/dL Globulin 3.2 gm/dL Albumin/Globulin Ratio 1.0 L (1.1-1.8) Triglycerides (35-160) mg/dL Cholesterol (130-200) mg/dL LDL Cholesterol Direct (0-129) mg/dL HDL Cholesterol (29-60) mg/dL TSH 3rd Generation 2.00 (0.46-4.68) mIU/mL Venous Blood Potassium (3.6-5.2) mmol/L Urine Color (YELLOW) Urine Appearance (CLEAR) Urine pH (4.7-8.0) Ur Specific [place] (1.005-1.035) Urine Protein (<30 mg/dL) mg/dL Urine Glucose (UA) (NEGATIVE) mg/dL Urine Ketones (NEGATIVE) mg/dL Urine Blood (NEGATIVE) Urine Nitrate (NEGATIVE) Urine Bilirubin (NEGATIVE) Urine Urobilinogen (<1 E.U./dL) E.U./dL Ur Leukocyte Esterase (NEGATIVE) Lisa/uL Urine RBC (0-2) /hpf Urine WBC (0-6) /hpf Ur Epithelial Cells (0-5) /hpf Amorphous Sediment (NONE) /hpf Urine Bacteria (NONE) /hpf Influenza Typ A,B (EIA) (NEGATIVE) 06/15/18 Range/Units 20:17 WBC 6.0 (4.5-11.0) 10^3/uL RBC 4.21 (3.5-6.1) 10^6/uL Hgb 11.3 L (14.0-18.0) g/dL Hct 35.3 L (42.0-52.0) % MCV 83.8 (80.0-105.0) fl MCH 26.8 (25.0-35.0) pg MCHC 32.0 (31.0-37.0) g/dl RDW 15.2 H (11.5-14.5) % Plt Count 128 (120.0-450.0) 10^3/uL MPV 11.7 H (7.0-11.0) fl Neut % (Auto) 85.1 H (50.0-68.0) % Lymph % (Auto) 8.2 L (22.0-35.0) % [place] % (Auto) 6.7 H (1.0-6.0) % Eos % (Auto) 0.0 L (1.5-5.0) % Baso % (Auto) 0.0 (0.0-3.0) % Lymph # (Auto) 0.5 L (1.2-3.4) [place] # (Auto) 0.4 (0.1-0.6) Eos # (Auto) 0.0 (0.0-0.7) Baso # (Auto) 0.00 (0.0-2.0) K/mm3 Absolute Neuts (auto) 5.11 (1.4-6.5) PT (9.4-12.5) SECONDS INR APTT (26.9-38.3) Seconds pO2 (30-55) mm/Hg VBG pH (7.32-7.43) VBG pCO2 (40-60) VBG HCO3 (21-28) mmol/l VBG Total CO2 (22-28) mmol.L VBG O2 Sat (Calc) (40-65) % VBG Base Excess (0.0-2.0) mmol/L VBG Potassium (3.6-5.2) mmol/L Sodium (132-148) mmol/L Chloride (98-107) mmol/L Glucose (75-110) mg/dl Lactate (0.7-2.1) mmol/L FiO2 % Blood Gas Comments Crit Value Called To Crit Value Called By Blood Gas Notified Time Potassium (3.6-5.0) mmol/L Carbon Dioxide (21-33) mmol/L Anion Gap (10-20) BUN (7-21) mg/dL Creatinine (0.8-1.5) mg/dl Est GFR ( Amer) Est GFR (Non-Af Amer) Random Glucose (70-110) mg/dL Calcium (8.4-10.5) mg/dL Phosphorus (2.5-4.5) mg/dL Magnesium (1.7-2.2) mg/dL Total Bilirubin (0.2-1.3) mg/dL AST (17-59) U/L ALT (7-56) U/L Alkaline Phosphatase (38-126) U/L Troponin I ng/mL NT-Pro-B Natriuret Pep (0-450) pg/mL Total Protein (5.8-8.3) g/dL Albumin (3.0-4.8) g/dL Globulin gm/dL Albumin/Globulin Ratio (1.1-1.8) Triglycerides (35-160) mg/dL Cholesterol (130-200) mg/dL LDL Cholesterol Direct (0-129) mg/dL HDL Cholesterol (29-60) mg/dL TSH 3rd Generation (0.46-4.68) mIU/mL Venous Blood Potassium (3.6-5.2) mmol/L Urine Color (YELLOW) Urine Appearance (CLEAR) Urine pH (4.7-8.0) Ur Specific [place] (1.005-1.035) Urine Protein (<30 mg/dL) mg/dL Urine Glucose (UA) (NEGATIVE) mg/dL Urine Ketones (NEGATIVE) mg/dL Urine Blood (NEGATIVE) Urine Nitrate (NEGATIVE) Urine Bilirubin (NEGATIVE) Urine Urobilinogen (<1 E.U./dL) E.U./dL Ur Leukocyte Esterase (NEGATIVE) Lisa/uL Urine RBC (0-2) /hpf Urine WBC (0-6) /hpf Ur Epithelial Cells (0-5) /hpf Amorphous Sediment (NONE) /hpf Urine Bacteria (NONE) /hpf Influenza Typ A,B (EIA) (NEGATIVE) Laboratory Results - last 24 hr 06/15/18 06/15/18 06/15/18 20:17 20:17 20:17 WBC 6.0 RBC 4.21 Hgb 11.3 L Hct 35.3 L MCV 83.8 MCH 26.8 MCHC 32.0 RDW 15.2 H Plt Count 128 MPV 11.7 H Neut % (Auto) 85.1 H Lymph % (Auto) 8.2 L Catron % (Auto) 6.7 H Eos % (Auto) 0.0 L Baso % (Auto) 0.0 Lymph # (Auto) 0.5 L [place] # (Auto) 0.4 Eos # (Auto) 0.0 Baso # (Auto) 0.00 Absolute Neuts (auto) 5.11 PT 12.8 H INR 1.15 APTT 27.7 pO2 VBG pH VBG pCO2 VBG HCO3 VBG Total CO2 VBG O2 Sat (Calc) VBG Base Excess VBG Potassium Sodium 137 Chloride 104 Glucose Lactate FiO2 Blood Gas Comments Crit Value Called To Crit Value Called By Blood Gas Notified Time Potassium 3.9 Carbon Dioxide 25 Anion Gap 12 BUN 29 H Creatinine 1.3 Est GFR ( Amer) > 60 Est GFR (Non-Af Amer) 54 Random Glucose 176 H Calcium 8.9 Phosphorus Magnesium Total Bilirubin 0.4 AST 38 ALT 16 Alkaline Phosphatase 66 Troponin I 0.72 H* D NT-Pro-B Natriuret Pep 50856 H Total Protein 6.4 Albumin 3.2 Globulin 3.2 Albumin/Globulin Ratio 1.0 L Triglycerides Cholesterol LDL Cholesterol Direct HDL Cholesterol TSH 3rd Generation Venous Blood Potassium Urine Color Urine Appearance Urine pH Ur Specific [place] Urine Protein Urine Glucose (UA) Urine Ketones Urine Blood Urine Nitrate Urine Bilirubin Urine Urobilinogen Ur Leukocyte Esterase Urine RBC Urine WBC Ur Epithelial Cells Amorphous Sediment Urine Bacteria Influenza Typ A,B (EIA) 06/15/18 06/15/18 06/15/18 20:17 20:17 20:17 WBC RBC Hgb Hct MCV MCH MCHC RDW Plt Count MPV Neut % (Auto) Lymph % (Auto) [place] % (Auto) Eos % (Auto) Baso % (Auto) Lymph # (Auto) [place] # (Auto) Eos # (Auto) Baso # (Auto) Absolute Neuts (auto) PT INR APTT pO2 30 VBG pH 7.45 H VBG pCO2 36.0 L VBG HCO3 25.0 VBG Total CO2 26.1 VBG O2 Sat (Calc) 66.9 H VBG Base Excess 1.3 VBG Potassium 4.1 Sodium 137.0 Chloride 105.0 Glucose 180 H Lactate 2.0 FiO2 21.0 Blood Gas Comments Lactate Crit Value Called To Chanel shannon Crit Value Called By [facility] Blood Gas Notified Time 2030 Potassium Carbon Dioxide Anion Gap BUN Creatinine Est GFR ( Amer) Est GFR (Non-Af Amer) Random Glucose Calcium Phosphorus 2.3 L Magnesium 2.0 Total Bilirubin AST ALT Alkaline Phosphatase Troponin I NT-Pro-B Natriuret Pep Total Protein Albumin Globulin Albumin/Globulin Ratio Triglycerides Cholesterol LDL Cholesterol Direct HDL Cholesterol TSH 3rd Generation 2.00 Venous Blood Potassium 4.1 Urine Color Urine Appearance Urine pH Ur Specific [place] Urine Protein Urine Glucose (UA) Urine Ketones Urine Blood Urine Nitrate Urine Bilirubin Urine Urobilinogen Ur Leukocyte Esterase Urine RBC Urine WBC Ur Epithelial Cells Amorphous Sediment Urine Bacteria Influenza Typ A,B (EIA) 06/15/18 06/15/18 06/15/18 20:20 20:45 23:30 WBC RBC Hgb Hct MCV MCH MCHC RDW Plt Count MPV Neut % (Auto) Lymph % (Auto) [place] % (Auto) Eos % (Auto) Baso % (Auto) Lymph # (Auto) [place] # (Auto) Eos # (Auto) Baso # (Auto) Absolute Neuts (auto) PT INR APTT pO2 93 H VBG pH 7.38 VBG pCO2 39.0 L VBG HCO3 23.1 VBG Total CO2 24.3 VBG O2 Sat (Calc) 97.9 H VBG Base Excess -1.8 L VBG Potassium 3.6 Sodium 138.0 Chloride 107.0 Glucose 129 H Lactate 0.7 FiO2 21.0 Blood Gas Comments Crit Value Called To Crit Value Called By Blood Gas Notified Time Potassium Carbon Dioxide Anion Gap BUN Creatinine Est GFR ( Amer) Est GFR (Non-Af Amer) Random Glucose Calcium Phosphorus Magnesium Total Bilirubin AST ALT Alkaline Phosphatase Troponin I NT-Pro-B Natriuret Pep Total Protein Albumin Globulin Albumin/Globulin Ratio Triglycerides Cholesterol LDL Cholesterol Direct HDL Cholesterol TSH 3rd Generation Venous Blood Potassium 3.6 Urine Color Yellow Urine Appearance Cloudy Urine pH 5.5 Ur Specific [place] >= 1.030 Urine Protein 30 H Urine Glucose (UA) Negative Urine Ketones Negative Urine Blood Moderate H Urine Nitrate Positive H Urine Bilirubin Negative Urine Urobilinogen 0.2 Ur Leukocyte Esterase Moderate H Urine RBC 15 - 20 H Urine WBC 25 - 30 H Ur Epithelial Cells 6 - 8 H Amorphous Sediment Few Urine Bacteria Large Influenza Typ A,B (EIA) Negative for flu a/b 06/16/18 06/16/18 06/16/18 02:05 05:30 05:30 WBC 6.0 RBC 4.19 Hgb 10.8 L Hct 35.0 L MCV 83.5 MCH 25.8 MCHC 30.9 L RDW 15.3 H Plt Count 120 MPV 11.5 H Neut % (Auto) 75.4 H Lymph % (Auto) 13.7 L [place] % (Auto) 10.5 H Eos % (Auto) 0.2 L Baso % (Auto) 0.2 Lymph # (Auto) 0.8 L Catron # (Auto) 0.6 Eos # (Auto) 0.0 Baso # (Auto) 0.01 Absolute Neuts (auto) 4.52 PT INR APTT pO2 VBG pH VBG pCO2 VBG HCO3 VBG Total CO2 VBG O2 Sat (Calc) VBG Base Excess VBG Potassium Sodium 139 Chloride 109 H Glucose Lactate FiO2 Blood Gas Comments Crit Value Called To Crit Value Called By Blood Gas Notified Time Potassium 3.7 Carbon Dioxide 23 Anion Gap 11 BUN 23 H Creatinine 1.2 Est GFR ( Amer) > 60 Est GFR (Non-Af Amer) 59 Random Glucose 102 Calcium 8.6 Phosphorus 3.4 Magnesium 2.0 Total Bilirubin 0.3 AST 37 ALT 21 Alkaline Phosphatase 55 Troponin I 1.54 H* D NT-Pro-B Natriuret Pep Total Protein 5.8 Albumin 3.0 Globulin 2.8 Albumin/Globulin Ratio 1.1 Triglycerides 142 Cholesterol 153 LDL Cholesterol Direct 85 HDL Cholesterol 30 TSH 3rd Generation Venous Blood Potassium Urine Color Urine Appearance Urine pH Ur Specific [place] Urine Protein Urine Glucose (UA) Urine Ketones Urine Blood Urine Nitrate Urine Bilirubin Urine Urobilinogen Ur Leukocyte Esterase Urine RBC Urine WBC Ur Epithelial Cells Amorphous Sediment Urine Bacteria Influenza Typ A,B (EIA) 06/16/18 05:30 WBC RBC Hgb Hct MCV MCH MCHC RDW Plt Count MPV Neut % (Auto) Lymph % (Auto) Catron % (Auto) Eos % (Auto) Baso % (Auto) Lymph # (Auto) Catron # (Auto) Eos # (Auto) Baso # (Auto) Absolute Neuts (auto) PT INR APTT pO2 VBG pH VBG pCO2 VBG HCO3 VBG Total CO2 VBG O2 Sat (Calc) VBG Base Excess VBG Potassium Sodium Chloride Glucose Lactate FiO2 Blood Gas Comments Crit Value Called To Crit Value Called By Blood Gas Notified Time Potassium Carbon Dioxide Anion Gap BUN Creatinine Est GFR ( Amer) Est GFR (Non-Af Amer) Random Glucose Calcium Phosphorus Magnesium Total Bilirubin AST ALT Alkaline Phosphatase Troponin I 1.01 H* D NT-Pro-B Natriuret Pep Total Protein Albumin Globulin Albumin/Globulin Ratio Triglycerides Cholesterol LDL Cholesterol Direct HDL Cholesterol TSH 3rd Generation Venous Blood Potassium Urine Color Urine Appearance Urine pH Ur Specific [place] Urine Protein Urine Glucose (UA) Urine Ketones Urine Blood Urine Nitrate Urine Bilirubin Urine Urobilinogen Ur Leukocyte Esterase Urine RBC Urine WBC Ur Epithelial Cells Amorphous Sediment Urine Bacteria Influenza Typ A,B (EIA) Radiology Impressions: Radiology Impressions Chest X-Ray 06/15/18 19:59 IMPRESSION: No active disease. EKG/Cardiology Studies: Cardiology / EKG Studies 06/15/18 19:53 ELECTROCARDIOGRAM Stat Comment: Reason For Exam: AMS 06/15/18 20:50 ELECTROCARDIOGRAM Stat Comment: Reason For Exam: 2ND EKG Critical Care Progress Note - Nutrition Nutrition: Nutrition Category Date Time Status Heart Healthy Diet [DIET] Diets 06/15/18 Dinner Active Assessment/Plan - Assessment and Plan (Free Text) Assessment: Pt is a 72 yo male with PMH of Parkinson's, and cardiomyopathy (ICD placement) admitted following episodes of Vtach and ICD firing. Patient is admitted to ICU for management of amiodarone drip. Plan: Neuro - History of Parkinson's, non verbal - Monitor change in neuro status - carodopa/ levodopa restarted - Neuro consulted, Dr Loving Cardio - Trop 0.72, 1.54, 1.01 - non sustained V tach, run of 22 beats - Patient's clutching of chest likely due to ICD firing - AICD rep interrogated device, found that his device fired 7 times yesterday, all shocks were appropriate - pt has been started on PO amiodarone, ASA - Cardio consulted, Dr. Reyes, amiodarone drip but no need for heparin drip at this time Pulm - Maintain O2 saturation >90% GI - HHD Renal/ - BUN 23 - Cr 1.2 - UTI - ceftriaxone - brewer in place Endocrine - maintain euglycemia Heme/onc - Hgb 10.8 - monitor for hemodynamic instability - INR 1.15 ID - UTI - urine culture follow up - blood culture follow up - ceftriaxone - ID consulted, Dr Turner Pt seen, examined, assessment and plan discussed with Dr Roger Mckeon PGY1 - Date & Time Date: 06/16/18 Time: 08:45 <Delgado Duran - Last Filed: 06/16/18 12:06> CCU Objective - Vital Signs / Intake & Output Vital Signs (Last 4 hours): Vital Signs Pulse Resp BP Pulse Ox 06/16/18 11:40 64 15 97 06/16/18 11:30 64 18 96 06/16/18 11:20 65 17 97 06/16/18 11:10 69 97 06/16/18 11:00 65 16 115/49 L 95 06/16/18 10:50 67 20 97 06/16/18 10:40 65 17 97 06/16/18 10:30 67 18 94 L 06/16/18 10:20 71 18 97 06/16/18 10:10 67 19 96 06/16/18 10:00 68 19 102/56 L 95 06/16/18 09:50 68 98 06/16/18 09:40 71 13 97 06/16/18 09:30 66 14 97 06/16/18 09:20 70 18 97 06/16/18 09:12 72 102/54 L 06/16/18 09:11 74 102/54 L 06/16/18 09:10 70 18 98 06/16/18 09:00 71 21 102/54 L 99 06/16/18 08:50 66 14 97 06/16/18 08:40 69 21 100 06/16/18 08:30 69 17 99 06/16/18 08:20 69 19 98 06/16/18 08:10 64 19 98 Intake and Output (Last 8hrs): Intake & Output 06/15/18 06/16/18 06/16/18 22:59 06:59 14:59 Intake Total 1216 Output Total 400 Balance 816 Weight 125 lb Intake: IV 1116 LR 720 amiodarone 396 Oral 100 Output: Urine 400 Urethral (Brewer) 400 Other: Voiding Method Indwelling Catheter - Medications Active Medications: Active Medications Generic Name Dose Route Start Last Admin Trade Name Freq PRN Reason Stop Dose Admin Amiodarone HCl 400 mg 06/16/18 10:00 06/16/18 09:11 Cordarone PO 400 mg BID BERONICA Administration Aspirin 81 mg 06/16/18 10:00 06/16/18 09:14 Ecotrin PO 81 mg DAILY BERONICA Administration Carbidopa/Levodopa 1 tab 06/16/18 10:00 06/16/18 09:21 Sinemet PO 1 tab TID BERONICA Administration Carvedilol 12.5 mg 06/16/18 10:00 06/16/18 09:12 Coreg PO 12.5 mg BID BERONICA Administration Heparin Sodium (Porcine) 5,000 units 06/16/18 06:00 06/16/18 05:52 Heparin SC 5,000 units Q8 BERONICA Administration Protocol Amiodarone HCl/Dextrose 360 mg in 200 mls @ 16.667 mls/hr 06/16/18 07:41 06/16/18 07:15 Nexterone 360 Mg In D5w 200 Ml (Premix) IV 16.667 mls/hr .Q12H BERONICA Administration Protocol 0.5 MG/MIN Cefepime HCl 1 gm in 100 mls @ 100 mls/hr 06/16/18 12:00 Maxipime 1gm IVPB Q12 BERONICA Protocol Pantoprazole Sodium 40 mg 06/16/18 10:00 06/16/18 09:14 Protonix Inj IVP 40 mg DAILY BERONICA Administration - Patient Studies Lab Studies: Lab Studies 06/16/18 06/16/18 06/16/18 Range/Units 05:30 05:30 05:30 WBC 6.0 (4.5-11.0) 10^3/uL RBC 4.19 (3.5-6.1) 10^6/uL Hgb 10.8 L (14.0-18.0) g/dL Hct 35.0 L (42.0-52.0) % MCV 83.5 (80.0-105.0) fl MCH 25.8 (25.0-35.0) pg MCHC 30.9 L (31.0-37.0) g/dl RDW 15.3 H (11.5-14.5) % Plt Count 120 (120.0-450.0) 10^3/uL MPV 11.5 H (7.0-11.0) fl Neut % (Auto) 75.4 H (50.0-68.0) % Lymph % (Auto) 13.7 L (22.0-35.0) % [place] % (Auto) 10.5 H (1.0-6.0) % Eos % (Auto) 0.2 L (1.5-5.0) % Baso % (Auto) 0.2 (0.0-3.0) % Lymph # (Auto) 0.8 L (1.2-3.4) [place] # (Auto) 0.6 (0.1-0.6) Eos # (Auto) 0.0 (0.0-0.7) Baso # (Auto) 0.01 (0.0-2.0) K/mm3 Absolute Neuts (auto) 4.52 (1.4-6.5) PT (9.4-12.5) SECONDS INR APTT (26.9-38.3) Seconds pO2 (30-55) mm/Hg VBG pH (7.32-7.43) VBG pCO2 (40-60) VBG HCO3 (21-28) mmol/l VBG Total CO2 (22-28) mmol.L VBG O2 Sat (Calc) (40-65) % VBG Base Excess (0.0-2.0) mmol/L VBG Potassium (3.6-5.2) mmol/L Sodium 139 (132-148) mmol/L Chloride 109 H (98-107) mmol/L Glucose (75-110) mg/dl Lactate (0.7-2.1) mmol/L FiO2 % Blood Gas Comments Crit Value Called To Crit Value Called By Blood Gas Notified Time Potassium 3.7 (3.6-5.0) mmol/L Carbon Dioxide 23 (21-33) mmol/L Anion Gap 11 (10-20) BUN 23 H (7-21) mg/dL Creatinine 1.2 (0.8-1.5) mg/dl Est GFR ( Amer) > 60 Est GFR (Non-Af Amer) 59 Random Glucose 102 (70-110) mg/dL Calcium 8.6 (8.4-10.5) mg/dL Phosphorus 3.4 (2.5-4.5) mg/dL Magnesium 2.0 (1.7-2.2) mg/dL Total Bilirubin 0.3 (0.2-1.3) mg/dL AST 37 (17-59) U/L ALT 21 (7-56) U/L Alkaline Phosphatase 55 (38-126) U/L Troponin I 1.01 H* D ng/mL NT-Pro-B Natriuret Pep (0-450) pg/mL Total Protein 5.8 (5.8-8.3) g/dL Albumin 3.0 (3.0-4.8) g/dL Globulin 2.8 gm/dL Albumin/Globulin Ratio 1.1 (1.1-1.8) Triglycerides 142 (35-160) mg/dL Cholesterol 153 (130-200) mg/dL LDL Cholesterol Direct 85 (0-129) mg/dL HDL Cholesterol 30 (29-60) mg/dL TSH 3rd Generation (0.46-4.68) mIU/mL Venous Blood Potassium (3.6-5.2) mmol/L Urine Color (YELLOW) Urine Appearance (CLEAR) Urine pH (4.7-8.0) Ur Specific [place] (1.005-1.035) Urine Protein (<30 mg/dL) mg/dL Urine Glucose (UA) (NEGATIVE) mg/dL Urine Ketones (NEGATIVE) mg/dL Urine Blood (NEGATIVE) Urine Nitrate (NEGATIVE) Urine Bilirubin (NEGATIVE) Urine Urobilinogen (<1 E.U./dL) E.U./dL Ur Leukocyte Esterase (NEGATIVE) Lisa/uL Urine RBC (0-2) /hpf Urine WBC (0-6) /hpf Ur Epithelial Cells (0-5) /hpf Amorphous Sediment (NONE) /hpf Urine Bacteria (NONE) /hpf Influenza Typ A,B (EIA) (NEGATIVE) 06/16/18 06/15/18 06/15/18 Range/Units 02:05 23:30 20:45 WBC (4.5-11.0) 10^3/uL RBC (3.5-6.1) 10^6/uL Hgb (14.0-18.0) g/dL Hct (42.0-52.0) % MCV (80.0-105.0) fl MCH (25.0-35.0) pg MCHC (31.0-37.0) g/dl RDW (11.5-14.5) % Plt Count (120.0-450.0) 10^3/uL MPV (7.0-11.0) fl Neut % (Auto) (50.0-68.0) % Lymph % (Auto) (22.0-35.0) % [place] % (Auto) (1.0-6.0) % Eos % (Auto) (1.5-5.0) % Baso % (Auto) (0.0-3.0) % Lymph # (Auto) (1.2-3.4) [place] # (Auto) (0.1-0.6) Eos # (Auto) (0.0-0.7) Baso # (Auto) (0.0-2.0) K/mm3 Absolute Neuts (auto) (1.4-6.5) PT (9.4-12.5) SECONDS INR APTT (26.9-38.3) Seconds pO2 93 H (30-55) mm/Hg VBG pH 7.38 (7.32-7.43) VBG pCO2 39.0 L (40-60) VBG HCO3 23.1 (21-28) mmol/l VBG Total CO2 24.3 (22-28) mmol.L VBG O2 Sat (Calc) 97.9 H (40-65) % VBG Base Excess -1.8 L (0.0-2.0) mmol/L VBG Potassium 3.6 (3.6-5.2) mmol/L Sodium 138.0 (132-148) mmol/L Chloride 107.0 (98-107) mmol/L Glucose 129 H (75-110) mg/dl Lactate 0.7 (0.7-2.1) mmol/L FiO2 21.0 % Blood Gas Comments Crit Value Called To Crit Value Called By Blood Gas Notified Time Potassium (3.6-5.0) mmol/L Carbon Dioxide (21-33) mmol/L Anion Gap (10-20) BUN (7-21) mg/dL Creatinine (0.8-1.5) mg/dl Est GFR ( Amer) Est GFR (Non-Af Amer) Random Glucose (70-110) mg/dL Calcium (8.4-10.5) mg/dL Phosphorus (2.5-4.5) mg/dL Magnesium (1.7-2.2) mg/dL Total Bilirubin (0.2-1.3) mg/dL AST (17-59) U/L ALT (7-56) U/L Alkaline Phosphatase (38-126) U/L Troponin I 1.54 H* D ng/mL NT-Pro-B Natriuret Pep (0-450) pg/mL Total Protein (5.8-8.3) g/dL Albumin (3.0-4.8) g/dL Globulin gm/dL Albumin/Globulin Ratio (1.1-1.8) Triglycerides (35-160) mg/dL Cholesterol (130-200) mg/dL LDL Cholesterol Direct (0-129) mg/dL HDL Cholesterol (29-60) mg/dL TSH 3rd Generation (0.46-4.68) mIU/mL Venous Blood Potassium 3.6 (3.6-5.2) mmol/L Urine Color Yellow (YELLOW) Urine Appearance Cloudy (CLEAR) Urine pH 5.5 (4.7-8.0) Ur Specific [place] >= 1.030 (1.005-1.035) Urine Protein 30 H (<30 mg/dL) mg/dL Urine Glucose (UA) Negative (NEGATIVE) mg/dL Urine Ketones Negative (NEGATIVE) mg/dL Urine Blood Moderate H (NEGATIVE) Urine Nitrate Positive H (NEGATIVE) Urine Bilirubin Negative (NEGATIVE) Urine Urobilinogen 0.2 (<1 E.U./dL) E.U./dL Ur Leukocyte Esterase Moderate H (NEGATIVE) Lisa/uL Urine RBC 15 - 20 H (0-2) /hpf Urine WBC 25 - 30 H (0-6) /hpf Ur Epithelial Cells 6 - 8 H (0-5) /hpf Amorphous Sediment Few (NONE) /hpf Urine Bacteria Large (NONE) /hpf Influenza Typ A,B (EIA) (NEGATIVE) 06/15/18 06/15/18 06/15/18 Range/Units 20:20 20:17 20:17 WBC (4.5-11.0) 10^3/uL RBC (3.5-6.1) 10^6/uL Hgb (14.0-18.0) g/dL Hct (42.0-52.0) % MCV (80.0-105.0) fl MCH (25.0-35.0) pg MCHC (31.0-37.0) g/dl RDW (11.5-14.5) % Plt Count (120.0-450.0) 10^3/uL MPV (7.0-11.0) fl Neut % (Auto) (50.0-68.0) % Lymph % (Auto) (22.0-35.0) % [place] % (Auto) (1.0-6.0) % Eos % (Auto) (1.5-5.0) % Baso % (Auto) (0.0-3.0) % Lymph # (Auto) (1.2-3.4) [place] # (Auto) (0.1-0.6) Eos # (Auto) (0.0-0.7) Baso # (Auto) (0.0-2.0) K/mm3 Absolute Neuts (auto) (1.4-6.5) PT (9.4-12.5) SECONDS INR APTT (26.9-38.3) Seconds pO2 30 (30-55) mm/Hg VBG pH 7.45 H (7.32-7.43) VBG pCO2 36.0 L (40-60) VBG HCO3 25.0 (21-28) mmol/l VBG Total CO2 26.1 (22-28) mmol.L VBG O2 Sat (Calc) 66.9 H (40-65) % VBG Base Excess 1.3 (0.0-2.0) mmol/L VBG Potassium 4.1 (3.6-5.2) mmol/L Sodium 137.0 (132-148) mmol/L Chloride 105.0 (98-107) mmol/L Glucose 180 H (75-110) mg/dl Lactate 2.0 (0.7-2.1) mmol/L FiO2 21.0 % Blood Gas Comments Lactate Crit Value Called To Chanel shannon Crit Value Called By [facility] Blood Gas Notified Time 2030 Potassium (3.6-5.0) mmol/L Carbon Dioxide (21-33) mmol/L Anion Gap (10-20) BUN (7-21) mg/dL Creatinine (0.8-1.5) mg/dl Est GFR ( Amer) Est GFR (Non-Af Amer) Random Glucose (70-110) mg/dL Calcium (8.4-10.5) mg/dL Phosphorus 2.3 L (2.5-4.5) mg/dL Magnesium 2.0 (1.7-2.2) mg/dL Total Bilirubin (0.2-1.3) mg/dL AST (17-59) U/L ALT (7-56) U/L Alkaline Phosphatase (38-126) U/L Troponin I ng/mL NT-Pro-B Natriuret Pep (0-450) pg/mL Total Protein (5.8-8.3) g/dL Albumin (3.0-4.8) g/dL Globulin gm/dL Albumin/Globulin Ratio (1.1-1.8) Triglycerides (35-160) mg/dL Cholesterol (130-200) mg/dL LDL Cholesterol Direct (0-129) mg/dL HDL Cholesterol (29-60) mg/dL TSH 3rd Generation (0.46-4.68) mIU/mL Venous Blood Potassium 4.1 (3.6-5.2) mmol/L Urine Color (YELLOW) Urine Appearance (CLEAR) Urine pH (4.7-8.0) Ur Specific [place] (1.005-1.035) Urine Protein (<30 mg/dL) mg/dL Urine Glucose (UA) (NEGATIVE) mg/dL Urine Ketones (NEGATIVE) mg/dL Urine Blood (NEGATIVE) Urine Nitrate (NEGATIVE) Urine Bilirubin (NEGATIVE) Urine Urobilinogen (<1 E.U./dL) E.U./dL Ur Leukocyte Esterase (NEGATIVE) Lisa/uL Urine RBC (0-2) /hpf Urine WBC (0-6) /hpf Ur Epithelial Cells (0-5) /hpf Amorphous Sediment (NONE) /hpf Urine Bacteria (NONE) /hpf Influenza Typ A,B (EIA) Negative for flu a/b (NEGATIVE) 06/15/18 06/15/18 06/15/18 Range/Units 20:17 20:17 20:17 WBC (4.5-11.0) 10^3/uL RBC (3.5-6.1) 10^6/uL Hgb (14.0-18.0) g/dL Hct (42.0-52.0) % MCV (80.0-105.0) fl MCH (25.0-35.0) pg MCHC (31.0-37.0) g/dl RDW (11.5-14.5) % Plt Count (120.0-450.0) 10^3/uL MPV (7.0-11.0) fl Neut % (Auto) (50.0-68.0) % Lymph % (Auto) (22.0-35.0) % [place] % (Auto) (1.0-6.0) % Eos % (Auto) (1.5-5.0) % Baso % (Auto) (0.0-3.0) % Lymph # (Auto) (1.2-3.4) [place] # (Auto) (0.1-0.6) Eos # (Auto) (0.0-0.7) Baso # (Auto) (0.0-2.0) K/mm3 Absolute Neuts (auto) (1.4-6.5) PT 12.8 H (9.4-12.5) SECONDS INR 1.15 APTT 27.7 (26.9-38.3) Seconds pO2 (30-55) mm/Hg VBG pH (7.32-7.43) VBG pCO2 (40-60) VBG HCO3 (21-28) mmol/l VBG Total CO2 (22-28) mmol.L VBG O2 Sat (Calc) (40-65) % VBG Base Excess (0.0-2.0) mmol/L VBG Potassium (3.6-5.2) mmol/L Sodium 137 (132-148) mmol/L Chloride 104 (98-107) mmol/L Glucose (75-110) mg/dl Lactate (0.7-2.1) mmol/L FiO2 % Blood Gas Comments Crit Value Called To Crit Value Called By Blood Gas Notified Time Potassium 3.9 (3.6-5.0) mmol/L Carbon Dioxide 25 (21-33) mmol/L Anion Gap 12 (10-20) BUN 29 H (7-21) mg/dL Creatinine 1.3 (0.8-1.5) mg/dl Est GFR ( Amer) > 60 Est GFR (Non-Af Amer) 54 Random Glucose 176 H (70-110) mg/dL Calcium 8.9 (8.4-10.5) mg/dL Phosphorus (2.5-4.5) mg/dL Magnesium (1.7-2.2) mg/dL Total Bilirubin 0.4 (0.2-1.3) mg/dL AST 38 (17-59) U/L ALT 16 (7-56) U/L Alkaline Phosphatase 66 (38-126) U/L Troponin I 0.72 H* D ng/mL NT-Pro-B Natriuret Pep 20578 H (0-450) pg/mL Total Protein 6.4 (5.8-8.3) g/dL Albumin 3.2 (3.0-4.8) g/dL Globulin 3.2 gm/dL Albumin/Globulin Ratio 1.0 L (1.1-1.8) Triglycerides (35-160) mg/dL Cholesterol (130-200) mg/dL LDL Cholesterol Direct (0-129) mg/dL HDL Cholesterol (29-60) mg/dL TSH 3rd Generation 2.00 (0.46-4.68) mIU/mL Venous Blood Potassium (3.6-5.2) mmol/L Urine Color (YELLOW) Urine Appearance (CLEAR) Urine pH (4.7-8.0) Ur Specific [place] (1.005-1.035) Urine Protein (<30 mg/dL) mg/dL Urine Glucose (UA) (NEGATIVE) mg/dL Urine Ketones (NEGATIVE) mg/dL Urine Blood (NEGATIVE) Urine Nitrate (NEGATIVE) Urine Bilirubin (NEGATIVE) Urine Urobilinogen (<1 E.U./dL) E.U./dL Ur Leukocyte Esterase (NEGATIVE) Lisa/uL Urine RBC (0-2) /hpf Urine WBC (0-6) /hpf Ur Epithelial Cells (0-5) /hpf Amorphous Sediment (NONE) /hpf Urine Bacteria (NONE) /hpf Influenza Typ A,B (EIA) (NEGATIVE) 06/15/18 Range/Units 20:17 WBC 6.0 (4.5-11.0) 10^3/uL RBC 4.21 (3.5-6.1) 10^6/uL Hgb 11.3 L (14.0-18.0) g/dL Hct 35.3 L (42.0-52.0) % MCV 83.8 (80.0-105.0) fl MCH 26.8 (25.0-35.0) pg MCHC 32.0 (31.0-37.0) g/dl RDW 15.2 H (11.5-14.5) % Plt Count 128 (120.0-450.0) 10^3/uL MPV 11.7 H (7.0-11.0) fl Neut % (Auto) 85.1 H (50.0-68.0) % Lymph % (Auto) 8.2 L (22.0-35.0) % [place] % (Auto) 6.7 H (1.0-6.0) % Eos % (Auto) 0.0 L (1.5-5.0) % Baso % (Auto) 0.0 (0.0-3.0) % Lymph # (Auto) 0.5 L (1.2-3.4) [place] # (Auto) 0.4 (0.1-0.6) Eos # (Auto) 0.0 (0.0-0.7) Baso # (Auto) 0.00 (0.0-2.0) K/mm3 Absolute Neuts (auto) 5.11 (1.4-6.5) PT (9.4-12.5) SECONDS INR APTT (26.9-38.3) Seconds pO2 (30-55) mm/Hg VBG pH (7.32-7.43) VBG pCO2 (40-60) VBG HCO3 (21-28) mmol/l VBG Total CO2 (22-28) mmol.L VBG O2 Sat (Calc) (40-65) % VBG Base Excess (0.0-2.0) mmol/L VBG Potassium (3.6-5.2) mmol/L Sodium (132-148) mmol/L Chloride (98-107) mmol/L Glucose (75-110) mg/dl Lactate (0.7-2.1) mmol/L FiO2 % Blood Gas Comments Crit Value Called To Crit Value Called By Blood Gas Notified Time Potassium (3.6-5.0) mmol/L Carbon Dioxide (21-33) mmol/L Anion Gap (10-20) BUN (7-21) mg/dL Creatinine (0.8-1.5) mg/dl Est GFR ( Amer) Est GFR (Non-Af Amer) Random Glucose (70-110) mg/dL Calcium (8.4-10.5) mg/dL Phosphorus (2.5-4.5) mg/dL Magnesium (1.7-2.2) mg/dL Total Bilirubin (0.2-1.3) mg/dL AST (17-59) U/L ALT (7-56) U/L Alkaline Phosphatase (38-126) U/L Troponin I ng/mL NT-Pro-B Natriuret Pep (0-450) pg/mL Total Protein (5.8-8.3) g/dL Albumin (3.0-4.8) g/dL Globulin gm/dL Albumin/Globulin Ratio (1.1-1.8) Triglycerides (35-160) mg/dL Cholesterol (130-200) mg/dL LDL Cholesterol Direct (0-129) mg/dL HDL Cholesterol (29-60) mg/dL TSH 3rd Generation (0.46-4.68) mIU/mL Venous Blood Potassium (3.6-5.2) mmol/L Urine Color (YELLOW) Urine Appearance (CLEAR) Urine pH (4.7-8.0) Ur Specific [place] (1.005-1.035) Urine Protein (<30 mg/dL) mg/dL Urine Glucose (UA) (NEGATIVE) mg/dL Urine Ketones (NEGATIVE) mg/dL Urine Blood (NEGATIVE) Urine Nitrate (NEGATIVE) Urine Bilirubin (NEGATIVE) Urine Urobilinogen (<1 E.U./dL) E.U./dL Ur Leukocyte Esterase (NEGATIVE) Lisa/uL Urine RBC (0-2) /hpf Urine WBC (0-6) /hpf Ur Epithelial Cells (0-5) /hpf Amorphous Sediment (NONE) /hpf Urine Bacteria (NONE) /hpf Influenza Typ A,B (EIA) (NEGATIVE) Laboratory Results - last 24 hr 06/15/18 06/15/18 06/15/18 20:17 20:17 20:17 WBC 6.0 RBC 4.21 Hgb 11.3 L Hct 35.3 L MCV 83.8 MCH 26.8 MCHC 32.0 RDW 15.2 H Plt Count 128 MPV 11.7 H Neut % (Auto) 85.1 H Lymph % (Auto) 8.2 L [place] % (Auto) 6.7 H Eos % (Auto) 0.0 L Baso % (Auto) 0.0 Lymph # (Auto) 0.5 L [place] # (Auto) 0.4 Eos # (Auto) 0.0 Baso # (Auto) 0.00 Absolute Neuts (auto) 5.11 PT 12.8 H INR 1.15 APTT 27.7 pO2 VBG pH VBG pCO2 VBG HCO3 VBG Total CO2 VBG O2 Sat (Calc) VBG Base Excess VBG Potassium Sodium 137 Chloride 104 Glucose Lactate FiO2 Blood Gas Comments Crit Value Called To Crit Value Called By Blood Gas Notified Time Potassium 3.9 Carbon Dioxide 25 Anion Gap 12 BUN 29 H Creatinine 1.3 Est GFR ( Amer) > 60 Est GFR (Non-Af Amer) 54 Random Glucose 176 H Calcium 8.9 Phosphorus Magnesium Total Bilirubin 0.4 AST 38 ALT 16 Alkaline Phosphatase 66 Troponin I 0.72 H* D NT-Pro-B Natriuret Pep 04083 H Total Protein 6.4 Albumin 3.2 Globulin 3.2 Albumin/Globulin Ratio 1.0 L Triglycerides Cholesterol LDL Cholesterol Direct HDL Cholesterol TSH 3rd Generation Venous Blood Potassium Urine Color Urine Appearance Urine pH Ur Specific [place] Urine Protein Urine Glucose (UA) Urine Ketones Urine Blood Urine Nitrate Urine Bilirubin Urine Urobilinogen Ur Leukocyte Esterase Urine RBC Urine WBC Ur Epithelial Cells Amorphous Sediment Urine Bacteria Influenza Typ A,B (EIA) 06/15/18 06/15/18 06/15/18 20:17 20:17 20:17 WBC RBC Hgb Hct MCV MCH MCHC RDW Plt Count MPV Neut % (Auto) Lymph % (Auto) [place] % (Auto) Eos % (Auto) Baso % (Auto) Lymph # (Auto) [place] # (Auto) Eos # (Auto) Baso # (Auto) Absolute Neuts (auto) PT INR APTT pO2 30 VBG pH 7.45 H VBG pCO2 36.0 L VBG HCO3 25.0 VBG Total CO2 26.1 VBG O2 Sat (Calc) 66.9 H VBG Base Excess 1.3 VBG Potassium 4.1 Sodium 137.0 Chloride 105.0 Glucose 180 H Lactate 2.0 FiO2 21.0 Blood Gas Comments Lactate Crit Value Called To Chanel shannon Crit Value Called By [facility] Blood Gas Notified Time 2030 Potassium Carbon Dioxide Anion Gap BUN Creatinine Est GFR ( Amer) Est GFR (Non-Af Amer) Random Glucose Calcium Phosphorus 2.3 L Magnesium 2.0 Total Bilirubin AST ALT Alkaline Phosphatase Troponin I NT-Pro-B Natriuret Pep Total Protein Albumin Globulin Albumin/Globulin Ratio Triglycerides Cholesterol LDL Cholesterol Direct HDL Cholesterol TSH 3rd Generation 2.00 Venous Blood Potassium 4.1 Urine Color Urine Appearance Urine pH Ur Specific [place] Urine Protein Urine Glucose (UA) Urine Ketones Urine Blood Urine Nitrate Urine Bilirubin Urine Urobilinogen Ur Leukocyte Esterase Urine RBC Urine WBC Ur Epithelial Cells Amorphous Sediment Urine Bacteria Influenza Typ A,B (EIA) 06/15/18 06/15/18 06/15/18 20:20 20:45 23:30 WBC RBC Hgb Hct MCV MCH MCHC RDW Plt Count MPV Neut % (Auto) Lymph % (Auto) [place] % (Auto) Eos % (Auto) Baso % (Auto) Lymph # (Auto) [place] # (Auto) Eos # (Auto) Baso # (Auto) Absolute Neuts (auto) PT INR APTT pO2 93 H VBG pH 7.38 VBG pCO2 39.0 L VBG HCO3 23.1 VBG Total CO2 24.3 VBG O2 Sat (Calc) 97.9 H VBG Base Excess -1.8 L VBG Potassium 3.6 Sodium 138.0 Chloride 107.0 Glucose 129 H Lactate 0.7 FiO2 21.0 Blood Gas Comments Crit Value Called To Crit Value Called By Blood Gas Notified Time Potassium Carbon Dioxide Anion Gap BUN Creatinine Est GFR ( Amer) Est GFR (Non-Af Amer) Random Glucose Calcium Phosphorus Magnesium Total Bilirubin AST ALT Alkaline Phosphatase Troponin I NT-Pro-B Natriuret Pep Total Protein Albumin Globulin Albumin/Globulin Ratio Triglycerides Cholesterol LDL Cholesterol Direct HDL Cholesterol TSH 3rd Generation Venous Blood Potassium 3.6 Urine Color Yellow Urine Appearance Cloudy Urine pH 5.5 Ur Specific [place] >= 1.030 Urine Protein 30 H Urine Glucose (UA) Negative Urine Ketones Negative Urine Blood Moderate H Urine Nitrate Positive H Urine Bilirubin Negative Urine Urobilinogen 0.2 Ur Leukocyte Esterase Moderate H Urine RBC 15 - 20 H Urine WBC 25 - 30 H Ur Epithelial Cells 6 - 8 H Amorphous Sediment Few Urine Bacteria Large Influenza Typ A,B (EIA) Negative for flu a/b 06/16/18 06/16/18 06/16/18 02:05 05:30 05:30 WBC 6.0 RBC 4.19 Hgb 10.8 L Hct 35.0 L MCV 83.5 MCH 25.8 MCHC 30.9 L RDW 15.3 H Plt Count 120 MPV 11.5 H Neut % (Auto) 75.4 H Lymph % (Auto) 13.7 L [place] % (Auto) 10.5 H Eos % (Auto) 0.2 L Baso % (Auto) 0.2 Lymph # (Auto) 0.8 L [place] # (Auto) 0.6 Eos # (Auto) 0.0 Baso # (Auto) 0.01 Absolute Neuts (auto) 4.52 PT INR APTT pO2 VBG pH VBG pCO2 VBG HCO3 VBG Total CO2 VBG O2 Sat (Calc) VBG Base Excess VBG Potassium Sodium 139 Chloride 109 H Glucose Lactate FiO2 Blood Gas Comments Crit Value Called To Crit Value Called By Blood Gas Notified Time Potassium 3.7 Carbon Dioxide 23 Anion Gap 11 BUN 23 H Creatinine 1.2 Est GFR ( Amer) > 60 Est GFR (Non-Af Amer) 59 Random Glucose 102 Calcium 8.6 Phosphorus 3.4 Magnesium 2.0 Total Bilirubin 0.3 AST 37 ALT 21 Alkaline Phosphatase 55 Troponin I 1.54 H* D NT-Pro-B Natriuret Pep Total Protein 5.8 Albumin 3.0 Globulin 2.8 Albumin/Globulin Ratio 1.1 Triglycerides 142 Cholesterol 153 LDL Cholesterol Direct 85 HDL Cholesterol 30 TSH 3rd Generation Venous Blood Potassium Urine Color Urine Appearance Urine pH Ur Specific [place] Urine Protein Urine Glucose (UA) Urine Ketones Urine Blood Urine Nitrate Urine Bilirubin Urine Urobilinogen Ur Leukocyte Esterase Urine RBC Urine WBC Ur Epithelial Cells Amorphous Sediment Urine Bacteria Influenza Typ A,B (EIA) 06/16/18 05:30 WBC RBC Hgb Hct MCV MCH MCHC RDW Plt Count MPV Neut % (Auto) Lymph % (Auto) [place] % (Auto) Eos % (Auto) Baso % (Auto) Lymph # (Auto) [place] # (Auto) Eos # (Auto) Baso # (Auto) Absolute Neuts (auto) PT INR APTT pO2 VBG pH VBG pCO2 VBG HCO3 VBG Total CO2 VBG O2 Sat (Calc) VBG Base Excess VBG Potassium Sodium Chloride Glucose Lactate FiO2 Blood Gas Comments Crit Value Called To Crit Value Called By Blood Gas Notified Time Potassium Carbon Dioxide Anion Gap BUN Creatinine Est GFR ( Amer) Est GFR (Non-Af Amer) Random Glucose Calcium Phosphorus Magnesium Total Bilirubin AST ALT Alkaline Phosphatase Troponin I 1.01 H* D NT-Pro-B Natriuret Pep Total Protein Albumin Globulin Albumin/Globulin Ratio Triglycerides Cholesterol LDL Cholesterol Direct HDL Cholesterol TSH 3rd Generation Venous Blood Potassium Urine Color Urine Appearance Urine pH Ur Specific [place] Urine Protein Urine Glucose (UA) Urine Ketones Urine Blood Urine Nitrate Urine Bilirubin Urine Urobilinogen Ur Leukocyte Esterase Urine RBC Urine WBC Ur Epithelial Cells Amorphous Sediment Urine Bacteria Influenza Typ A,B (EIA) Radiology Impressions: Radiology Impressions Chest X-Ray 06/15/18 19:59 IMPRESSION: No active disease. EKG/Cardiology Studies: Cardiology / EKG Studies 06/15/18 19:53 ELECTROCARDIOGRAM Stat Comment: Reason For Exam: AMS 06/15/18 20:50 ELECTROCARDIOGRAM Stat Comment: Reason For Exam: 2ND EKG Critical Care Progress Note - Nutrition Nutrition: Nutrition Category Date Time Status Heart Healthy Diet [DIET] Diets 06/15/18 Dinner Active Assessment/Plan - Assessment and Plan (Free Text) Plan: Patient seen and examined on rounds with resident, agree with note with following additions/exceptions: Patient is 72yo male with PMHx of Parkinson's, recurrent UTI, BPH, and cardiomyopathy (ICD placement) admitted following episodes of Vtach and ICD firing several times. Currently afebrile HD stable, comfortable in NAD Labs, imaging, chart reviewed AICD interrogated, as per rep, appropriate shocks On Amio drip, cardiology following AICD shocks UTI BPH Parkinsons Recommend: - supp o2 as needed, duonebs PRN - ABx as per Maria Alejandra RODRIGUEZ Vanco - BP control - Amio drip - keep K>4, Mg>2 - follow up cultures - c/w Sinemet - GI ppx - DVT ppx, HSQ - Monitor in MICU
--- NOTE | 2018-06-16 11:48 | CP.PCM.CON ---
<Justin Pacheco - Last Filed: 06/16/18 11:37> History of Present Illness - History of Present Illness History of Present Illness: Justin Pacheco D.O. PGY-3, Internal Medicine Resident, Infectious Disease Consultation Note 72 year old male with PMH of Parkinson's disease, cardiomyopathy with AICD who presented for concern for an episode of patient clutching his chest more than once today. Infectious disease consultation was requested for sepsis. Patient was seen and examined at bedside with present. Patient is mostly non-verbal due to his Parkinson's with dementia. retells the story that he was having chest discomfort from his AICD firing multiple times. Unsure what made it fire. admits that she caths the patient twice daily and he sees Dr. Aguillon as an outpatient. Review of Systems - Review of Systems All systems: reviewed and no additional remarkable complaints except (as per wi fe in HPI) Past Patient History - Infectious Disease Hx of Infectious Diseases: None - Tetanus Immunizations Tetanus Immunization: Unknown - Past Social History Smoking Status: Former Smoker - CARDIAC Hx Cardiac Disorders: Yes Hx Hypertension: Yes Hx Internal Defibrillator: Yes - PULMONARY Hx Respiratory Disorders: No - NEUROLOGICAL Hx Neurological Disorder: Yes Hx Dementia: Yes Hx Parkinson's Disease: Yes - HEENT Hx HEENT Problems: Yes Hx Cataracts: Yes Hx Difficulty Chewing: Yes Other/Comment: non verbal - RENAL Hx Chronic Kidney Disease: No - ENDOCRINE/METABOLIC Hx Endocrine Disorders: No - HEMATOLOGICAL/ONCOLOGICAL Hx Blood Disorders: Yes Hx Anemia: Yes - INTEGUMENTARY Hx Dermatological Problems: No - MUSCULOSKELETAL/RHEUMATOLOGICAL Hx Musculoskeletal Disorders: Yes Hx Arthritis: Yes Hx Falls: Yes Hx Fractures: Yes - GASTROINTESTINAL Hx Gastrointestinal Disorders: No - GENITOURINARY/GYNECOLOGICAL Hx Genitourinary Disorders: Yes Hx Urinary Tract Infection: Yes Other/Comment: [place] - PSYCHIATRIC Hx Psychophysiologic Disorder: Yes Hx Depression: Yes - SURGICAL HISTORY Hx Surgeries: Yes Hx Joint Replacement: Yes (L HIP) Hx Orthopedic Surgery: Yes - ANESTHESIA Hx Anesthesia Reactions: No (unknown) Hx Malignant Hyperthermia: No (unknown) Meds Allergies/Adverse Reactions: Allergies Allergy/AdvReac Type Severity Reaction Status Date / Time No Known Allergies Allergy Verified 01/02/18 12:32 - Medications Medications: Current Medications Amiodarone HCl (Cordarone) 400 mg PO BID [facility] Last Admin: 06/16/18 09:11 Dose: 400 mg Aspirin (Ecotrin) 81 mg PO DAILY [facility] Last Admin: 06/16/18 09:14 Dose: 81 mg Carbidopa/Levodopa (Sinemet) 1 tab PO TID [facility] Last Admin: 06/16/18 09:21 Dose: 1 tab Carvedilol (Coreg) 12.5 mg PO BID [facility] Last Admin: 06/16/18 09:12 Dose: 12.5 mg Heparin Sodium (Porcine) (Heparin) 5,000 units SC Q8 [facility]; Protocol Last Admin: 06/16/18 05:52 Dose: 5,000 units Ceftriaxone Sodium (Rocephin 1 Gram Ivpb) 1 gm in 100 mls @ 100 mls/hr IVPB DAILY [facility]; Protocol Last Admin: 06/16/18 09:16 Dose: 100 mls/hr Amiodarone HCl/Dextrose (Nexterone 360 Mg In D5w 200 Ml (Premix)) 360 mg in 200 mls @ 16.667 mls/hr IV .Q12H [facility]; Protocol Last Admin: 06/16/18 07:15 Dose: 16.667 mls/hr Pantoprazole Sodium (Protonix Inj) 40 mg IVP DAILY [facility] Last Admin: 06/16/18 09:14 Dose: 40 mg Physical Exam - Constitutional Appears: Non-toxic, Chronically Ill - Head Exam Head Exam: ATRAUMATIC, NORMOCEPHALIC - Eye Exam Eye Exam: EOMI. absent: Scleral icterus - ENT Exam ENT Exam: Mucous Membranes Moist - Neck Exam Neck exam: Positive for: Normal Inspection - Respiratory Exam Respiratory Exam: Clear to Auscultation Bilateral. absent: Rales, Rhonchi, Wheezes - Cardiovascular Exam Cardiovascular Exam: +S1, +S2 Additional comments: AICD in place - GI/Abdominal Exam GI & Abdominal Exam: Normal Bowel Sounds, Soft. absent: Distended, Tenderness - Extremities Exam Extremities exam: Negative for: calf tenderness - Neurological Exam Neurological exam: Alert - Skin Skin Exam: Dry, Warm Results - Vital Signs Recent Vital Signs: Last Vital Signs Temp 99.6 F 06/15/18 23:10 Pulse 72 06/16/18 09:12 Resp 20 06/16/18 06:30 BP 102/54 L 06/16/18 09:12 Pulse Ox 99 06/16/18 06:30 - Labs Result Diagrams: 06/16/18 05:30 06/16/18 05:30 Labs: Laboratory Results - last 24 hr 06/15/18 06/15/18 06/15/18 20:17 20:17 20:17 WBC 6.0 RBC 4.21 Hgb 11.3 L Hct 35.3 L MCV 83.8 MCH 26.8 MCHC 32.0 RDW 15.2 H Plt Count 128 MPV 11.7 H Neut % (Auto) 85.1 H Lymph % (Auto) 8.2 L Posey % (Auto) 6.7 H Eos % (Auto) 0.0 L Baso % (Auto) 0.0 Lymph # (Auto) 0.5 L [place] # (Auto) 0.4 Eos # (Auto) 0.0 Baso # (Auto) 0.00 Absolute Neuts (auto) 5.11 PT 12.8 H INR 1.15 APTT 27.7 pO2 VBG pH VBG pCO2 VBG HCO3 VBG Total CO2 VBG O2 Sat (Calc) VBG Base Excess VBG Potassium Sodium 137 Chloride 104 Glucose Lactate FiO2 Blood Gas Comments Crit Value Called To Crit Value Called By Blood Gas Notified Time Potassium 3.9 Carbon Dioxide 25 Anion Gap 12 BUN 29 H Creatinine 1.3 Est GFR ( Amer) > 60 Est GFR (Non-Af Amer) 54 Random Glucose 176 H Calcium 8.9 Phosphorus Magnesium Total Bilirubin 0.4 AST 38 ALT 16 Alkaline Phosphatase 66 Troponin I 0.72 H* D NT-Pro-B Natriuret Pep 65012 H Total Protein 6.4 Albumin 3.2 Globulin 3.2 Albumin/Globulin Ratio 1.0 L Triglycerides Cholesterol LDL Cholesterol Direct HDL Cholesterol TSH 3rd Generation Venous Blood Potassium Urine Color Urine Appearance Urine pH Ur Specific [place] Urine Protein Urine Glucose (UA) Urine Ketones Urine Blood Urine Nitrate Urine Bilirubin Urine Urobilinogen Ur Leukocyte Esterase Urine RBC Urine WBC Ur Epithelial Cells Amorphous Sediment Urine Bacteria Influenza Typ A,B (EIA) 06/15/18 06/15/18 06/15/18 20:17 20:17 20:17 WBC RBC Hgb Hct MCV MCH MCHC RDW Plt Count MPV Neut % (Auto) Lymph % (Auto) Posey % (Auto) Eos % (Auto) Baso % (Auto) Lymph # (Auto) P[place]y # (Auto) Eos # (Auto) Baso # (Auto) Absolute Neuts (auto) PT INR APTT pO2 30 VBG pH 7.45 H VBG pCO2 36.0 L VBG HCO3 25.0 VBG Total CO2 26.1 VBG O2 Sat (Calc) 66.9 H VBG Base Excess 1.3 VBG Potassium 4.1 Sodium 137.0 Chloride 105.0 Glucose 180 H Lactate 2.0 FiO2 21.0 Blood Gas Comments Lactate Crit Value Called To Chanel shannon Crit Value Called By [facility] Blood Gas Notified Time 2030 Potassium Carbon Dioxide Anion Gap BUN Creatinine Est GFR ( Amer) Est GFR (Non-Af Amer) Random Glucose Calcium Phosphorus 2.3 L Magnesium 2.0 Total Bilirubin AST ALT Alkaline Phosphatase Troponin I NT-Pro-B Natriuret Pep Total Protein Albumin Globulin Albumin/Globulin Ratio Triglycerides Cholesterol LDL Cholesterol Direct HDL Cholesterol TSH 3rd Generation 2.00 Venous Blood Potassium 4.1 Urine Color Urine Appearance Urine pH Ur Specific [place] Urine Protein Urine Glucose (UA) Urine Ketones Urine Blood Urine Nitrate Urine Bilirubin Urine Urobilinogen Ur Leukocyte Esterase Urine RBC Urine WBC Ur Epithelial Cells Amorphous Sediment Urine Bacteria Influenza Typ A,B (EIA) 06/15/18 06/15/18 06/15/18 20:20 20:45 23:30 WBC RBC Hgb Hct MCV MCH MCHC RDW Plt Count MPV Neut % (Auto) Lymph % (Auto) Posey % (Auto) Eos % (Auto) Baso % (Auto) Lymph # (Auto) Posey # (Auto) Eos # (Auto) Baso # (Auto) Absolute Neuts (auto) PT INR APTT pO2 93 H VBG pH 7.38 VBG pCO2 39.0 L VBG HCO3 23.1 VBG Total CO2 24.3 VBG O2 Sat (Calc) 97.9 H VBG Base Excess -1.8 L VBG Potassium 3.6 Sodium 138.0 Chloride 107.0 Glucose 129 H Lactate 0.7 FiO2 21.0 Blood Gas Comments Crit Value Called To Crit Value Called By Blood Gas Notified Time Potassium Carbon Dioxide Anion Gap BUN Creatinine Est GFR ( Amer) Est GFR (Non-Af Amer) Random Glucose Calcium Phosphorus Magnesium Total Bilirubin AST ALT Alkaline Phosphatase Troponin I NT-Pro-B Natriuret Pep Total Protein Albumin Globulin Albumin/Globulin Ratio Triglycerides Cholesterol LDL Cholesterol Direct HDL Cholesterol TSH 3rd Generation Venous Blood Potassium 3.6 Urine Color Yellow Urine Appearance Cloudy Urine pH 5.5 Ur Specific [place] >= 1.030 Urine Protein 30 H Urine Glucose (UA) Negative Urine Ketones Negative Urine Blood Moderate H Urine Nitrate Positive H Urine Bilirubin Negative Urine Urobilinogen 0.2 Ur Leukocyte Esterase Moderate H Urine RBC 15 - 20 H Urine WBC 25 - 30 H Ur Epithelial Cells 6 - 8 H Amorphous Sediment Few Urine Bacteria Large Influenza Typ A,B (EIA) Negative for flu a/b 06/16/18 06/16/18 06/16/18 02:05 05:30 05:30 WBC 6.0 RBC 4.19 Hgb 10.8 L Hct 35.0 L MCV 83.5 MCH 25.8 MCHC 30.9 L RDW 15.3 H Plt Count 120 MPV 11.5 H Neut % (Auto) 75.4 H Lymph % (Auto) 13.7 L Posey % (Auto) 10.5 H Eos % (Auto) 0.2 L Baso % (Auto) 0.2 Lymph # (Auto) 0.8 L [place] # (Auto) 0.6 Eos # (Auto) 0.0 Baso # (Auto) 0.01 Absolute Neuts (auto) 4.52 PT INR APTT pO2 VBG pH VBG pCO2 VBG HCO3 VBG Total CO2 VBG O2 Sat (Calc) VBG Base Excess VBG Potassium Sodium 139 Chloride 109 H Glucose Lactate FiO2 Blood Gas Comments Crit Value Called To Crit Value Called By Blood Gas Notified Time Potassium 3.7 Carbon Dioxide 23 Anion Gap 11 BUN 23 H Creatinine 1.2 Est GFR ( Amer) > 60 Est GFR (Non-Af Amer) 59 Random Glucose 102 Calcium 8.6 Phosphorus 3.4 Magnesium 2.0 Total Bilirubin 0.3 AST 37 ALT 21 Alkaline Phosphatase 55 Troponin I 1.54 H* D NT-Pro-B Natriuret Pep Total Protein 5.8 Albumin 3.0 Globulin 2.8 Albumin/Globulin Ratio 1.1 Triglycerides 142 Cholesterol 153 LDL Cholesterol Direct 85 HDL Cholesterol 30 TSH 3rd Generation Venous Blood Potassium Urine Color Urine Appearance Urine pH Ur Specific [place] Urine Protein Urine Glucose (UA) Urine Ketones Urine Blood Urine Nitrate Urine Bilirubin Urine Urobilinogen Ur Leukocyte Esterase Urine RBC Urine WBC Ur Epithelial Cells Amorphous Sediment Urine Bacteria Influenza Typ A,B (EIA) 06/16/18 05:30 WBC RBC Hgb Hct MCV MCH MCHC RDW Plt Count MPV Neut % (Auto) Lymph % (Auto) Posey % (Auto) Eos % (Auto) Baso % (Auto) Lymph # (Auto) [place]y # (Auto) Eos # (Auto) Baso # (Auto) Absolute Neuts (auto) PT INR APTT pO2 VBG pH VBG pCO2 VBG HCO3 VBG Total CO2 VBG O2 Sat (Calc) VBG Base Excess VBG Potassium Sodium Chloride Glucose Lactate FiO2 Blood Gas Comments Crit Value Called To Crit Value Called By Blood Gas Notified Time Potassium Carbon Dioxide Anion Gap BUN Creatinine Est GFR ( Amer) Est GFR (Non-Af Amer) Random Glucose Calcium Phosphorus Magnesium Total Bilirubin AST ALT Alkaline Phosphatase Troponin I 1.01 H* D NT-Pro-B Natriuret Pep Total Protein Albumin Globulin Albumin/Globulin Ratio Triglycerides Cholesterol LDL Cholesterol Direct HDL Cholesterol TSH 3rd Generation Venous Blood Potassium Urine Color Urine Appearance Urine pH Ur Specific [place] Urine Protein Urine Glucose (UA) Urine Ketones Urine Blood Urine Nitrate Urine Bilirubin Urine Urobilinogen Ur Leukocyte Esterase Urine RBC Urine WBC Ur Epithelial Cells Amorphous Sediment Urine Bacteria Influenza Typ A,B (EIA) Assessment & Plan - Assessment and Plan (Free Text) Assessment: 72 year old male with PMH of Parkinson's disease, cardiomyopathy with AICD who presented for concern for an episode of patient clutching his chest more than once today. Infectious disease consultation was requested for sepsis. Plan: Sepsis likely from urinary source NSTEMI Cardiomyopathy with AICD with multiple episodes of firing Parkison's disease with dementia Likely story is that patient septic from urinary source causing tachycardia, and given his cardiomyopathy he had some runs of Vtach that made his AICD fire multiple times which brought him in AICD in more than 10 years old but will give 1 dose of vancomycin UA shows urinary infection likely due to need for caths Will treat with cefepime 1g q8h due to need for pseudomonas coverage from the cathing We will follow with you Patient was seen and examined and case to be discussed with attending physician Thank you for the pleasure of participating in the care of this interesting patient - Date & Time Date: 06/16/18 Time: 10:55 <Franki Turner - Last Filed: 06/16/18 12:03> Meds - Medications Medications: Current Medications Amiodarone HCl (Cordarone) 400 mg PO BID [facility] Last Admin: 06/16/18 09:11 Dose: 400 mg Aspirin (Ecotrin) 81 mg PO DAILY [facility] Last Admin: 06/16/18 09:14 Dose: 81 mg Carbidopa/Levodopa (Sinemet) 1 tab PO TID [facility] Last Admin: 06/16/18 09:21 Dose: 1 tab Carvedilol (Coreg) 12.5 mg PO BID [facility] Last Admin: 06/16/18 09:12 Dose: 12.5 mg Heparin Sodium (Porcine) (Heparin) 5,000 units SC Q8 [facility]; Protocol Last Admin: 06/16/18 05:52 Dose: 5,000 units Amiodarone HCl/Dextrose (Nexterone 360 Mg In D5w 200 Ml (Premix)) 360 mg in 200 mls @ 16.667 mls/hr IV .Q12H [facility]; Protocol Last Admin: 06/16/18 07:15 Dose: 16.667 mls/hr Cefepime HCl (Maxipime 1gm) 1 gm in 100 mls @ 100 mls/hr IVPB Q12 [facility]; Protocol Pantoprazole Sodium (Protonix Inj) 40 mg IVP DAILY [facility] Last Admin: 06/16/18 09:14 Dose: 40 mg Results - Vital Signs Recent Vital Signs: Last Vital Signs Temp 99.6 F 06/15/18 23:10 Pulse 64 06/16/18 11:40 Resp 15 06/16/18 11:40 BP 115/49 L 06/16/18 11:00 Pulse Ox 97 06/16/18 11:40 - Labs Result Diagrams: 06/16/18 05:30 06/16/18 05:30 Labs: Laboratory Results - last 24 hr 06/15/18 06/15/18 06/15/18 20:17 20:17 20:17 WBC 6.0 RBC 4.21 Hgb 11.3 L Hct 35.3 L MCV 83.8 MCH 26.8 MCHC 32.0 RDW 15.2 H Plt Count 128 MPV 11.7 H Neut % (Auto) 85.1 H Lymph % (Auto) 8.2 L Posey % (Auto) 6.7 H Eos % (Auto) 0.0 L Baso % (Auto) 0.0 Lymph # (Auto) 0.5 L [place] # (Auto) 0.4 Eos # (Auto) 0.0 Baso # (Auto) 0.00 Absolute Neuts (auto) 5.11 PT 12.8 H INR 1.15 APTT 27.7 pO2 VBG pH VBG pCO2 VBG HCO3 VBG Total CO2 VBG O2 Sat (Calc) VBG Base Excess VBG Potassium Sodium 137 Chloride 104 Glucose Lactate FiO2 Blood Gas Comments Crit Value Called To Crit Value Called By Blood Gas Notified Time Potassium 3.9 Carbon Dioxide 25 Anion Gap 12 BUN 29 H Creatinine 1.3 Est GFR ( Amer) > 60 Est GFR (Non-Af Amer) 54 Random Glucose 176 H Calcium 8.9 Phosphorus Magnesium Total Bilirubin 0.4 AST 38 ALT 16 Alkaline Phosphatase 66 Troponin I 0.72 H* D NT-Pro-B Natriuret Pep 25707 H Total Protein 6.4 Albumin 3.2 Globulin 3.2 Albumin/Globulin Ratio 1.0 L Triglycerides Cholesterol LDL Cholesterol Direct HDL Cholesterol TSH 3rd Generation Venous Blood Potassium Urine Color Urine Appearance Urine pH Ur Specific [place] Urine Protein Urine Glucose (UA) Urine Ketones Urine Blood Urine Nitrate Urine Bilirubin Urine Urobilinogen Ur Leukocyte Esterase Urine RBC Urine WBC Ur Epithelial Cells Amorphous Sediment Urine Bacteria Influenza Typ A,B (EIA) 06/15/18 06/15/18 06/15/18 20:17 20:17 20:17 WBC RBC Hgb Hct MCV MCH MCHC RDW Plt Count MPV Neut % (Auto) Lymph % (Auto) Posey % (Auto) Eos % (Auto) Baso % (Auto) Lymph # (Auto) [place]y # (Auto) Eos # (Auto) Baso # (Auto) Absolute Neuts (auto) PT INR APTT pO2 30 VBG pH 7.45 H VBG pCO2 36.0 L VBG HCO3 25.0 VBG Total CO2 26.1 VBG O2 Sat (Calc) 66.9 H VBG Base Excess 1.3 VBG Potassium 4.1 Sodium 137.0 Chloride 105.0 Glucose 180 H Lactate 2.0 FiO2 21.0 Blood Gas Comments Lactate Crit Value Called To Chanel shannon Crit Value Called By [facility] Blood Gas Notified Time 2030 Potassium Carbon Dioxide Anion Gap BUN Creatinine Est GFR ( Amer) Est GFR (Non-Af Amer) Random Glucose Calcium Phosphorus 2.3 L Magnesium 2.0 Total Bilirubin AST ALT Alkaline Phosphatase Troponin I NT-Pro-B Natriuret Pep Total Protein Albumin Globulin Albumin/Globulin Ratio Triglycerides Cholesterol LDL Cholesterol Direct HDL Cholesterol TSH 3rd Generation 2.00 Venous Blood Potassium 4.1 Urine Color Urine Appearance Urine pH Ur Specific [place] Urine Protein Urine Glucose (UA) Urine Ketones Urine Blood Urine Nitrate Urine Bilirubin Urine Urobilinogen Ur Leukocyte Esterase Urine RBC Urine WBC Ur Epithelial Cells Amorphous Sediment Urine Bacteria Influenza Typ A,B (EIA) 06/15/18 06/15/18 06/15/18 20:20 20:45 23:30 WBC RBC Hgb Hct MCV MCH MCHC RDW Plt Count MPV Neut % (Auto) Lymph % (Auto) Posey % (Auto) Eos % (Auto) Baso % (Auto) Lymph # (Auto) [place]y # (Auto) Eos # (Auto) Baso # (Auto) Absolute Neuts (auto) PT INR APTT pO2 93 H VBG pH 7.38 VBG pCO2 39.0 L VBG HCO3 23.1 VBG Total CO2 24.3 VBG O2 Sat (Calc) 97.9 H VBG Base Excess -1.8 L VBG Potassium 3.6 Sodium 138.0 Chloride 107.0 Glucose 129 H Lactate 0.7 FiO2 21.0 Blood Gas Comments Crit Value Called To Crit Value Called By Blood Gas Notified Time Potassium Carbon Dioxide Anion Gap BUN Creatinine Est GFR ( Amer) Est GFR (Non-Af Amer) Random Glucose Calcium Phosphorus Magnesium Total Bilirubin AST ALT Alkaline Phosphatase Troponin I NT-Pro-B Natriuret Pep Total Protein Albumin Globulin Albumin/Globulin Ratio Triglycerides Cholesterol LDL Cholesterol Direct HDL Cholesterol TSH 3rd Generation Venous Blood Potassium 3.6 Urine Color Yellow Urine Appearance Cloudy Urine pH 5.5 Ur Specific [place] >= 1.030 Urine Protein 30 H Urine Glucose (UA) Negative Urine Ketones Negative Urine Blood Moderate H Urine Nitrate Positive H Urine Bilirubin Negative Urine Urobilinogen 0.2 Ur Leukocyte Esterase Moderate H Urine RBC 15 - 20 H Urine WBC 25 - 30 H Ur Epithelial Cells 6 - 8 H Amorphous Sediment Few Urine Bacteria Large Influenza Typ A,B (EIA) Negative for flu a/b 06/16/18 06/16/18 06/16/18 02:05 05:30 05:30 WBC 6.0 RBC 4.19 Hgb 10.8 L Hct 35.0 L MCV 83.5 MCH 25.8 MCHC 30.9 L RDW 15.3 H Plt Count 120 MPV 11.5 H Neut % (Auto) 75.4 H Lymph % (Auto) 13.7 L Posey % (Auto) 10.5 H Eos % (Auto) 0.2 L Baso % (Auto) 0.2 Lymph # (Auto) 0.8 L [place]y # (Auto) 0.6 Eos # (Auto) 0.0 Baso # (Auto) 0.01 Absolute Neuts (auto) 4.52 PT INR APTT pO2 VBG pH VBG pCO2 VBG HCO3 VBG Total CO2 VBG O2 Sat (Calc) VBG Base Excess VBG Potassium Sodium 139 Chloride 109 H Glucose Lactate FiO2 Blood Gas Comments Crit Value Called To Crit Value Called By Blood Gas Notified Time Potassium 3.7 Carbon Dioxide 23 Anion Gap 11 BUN 23 H Creatinine 1.2 Est GFR ( Amer) > 60 Est GFR (Non-Af Amer) 59 Random Glucose 102 Calcium 8.6 Phosphorus 3.4 Magnesium 2.0 Total Bilirubin 0.3 AST 37 ALT 21 Alkaline Phosphatase 55 Troponin I 1.54 H* D NT-Pro-B Natriuret Pep Total Protein 5.8 Albumin 3.0 Globulin 2.8 Albumin/Globulin Ratio 1.1 Triglycerides 142 Cholesterol 153 LDL Cholesterol Direct 85 HDL Cholesterol 30 TSH 3rd Generation Venous Blood Potassium Urine Color Urine Appearance Urine pH Ur Specific [place] Urine Protein Urine Glucose (UA) Urine Ketones Urine Blood Urine Nitrate Urine Bilirubin Urine Urobilinogen Ur Leukocyte Esterase Urine RBC Urine WBC Ur Epithelial Cells Amorphous Sediment Urine Bacteria Influenza Typ A,B (EIA) 06/16/18 05:30 WBC RBC Hgb Hct MCV MCH MCHC RDW Plt Count MPV Neut % (Auto) Lymph % (Auto) Posey % (Auto) Eos % (Auto) Baso % (Auto) Lymph # (Auto) Posey # (Auto) Eos # (Auto) Baso # (Auto) Absolute Neuts (auto) PT INR APTT pO2 VBG pH VBG pCO2 VBG HCO3 VBG Total CO2 VBG O2 Sat (Calc) VBG Base Excess VBG Potassium Sodium Chloride Glucose Lactate FiO2 Blood Gas Comments Crit Value Called To Crit Value Called By Blood Gas Notified Time Potassium Carbon Dioxide Anion Gap BUN Creatinine Est GFR ( Amer) Est GFR (Non-Af Amer) Random Glucose Calcium Phosphorus Magnesium Total Bilirubin AST ALT Alkaline Phosphatase Troponin I 1.01 H* D NT-Pro-B Natriuret Pep Total Protein Albumin Globulin Albumin/Globulin Ratio Triglycerides Cholesterol LDL Cholesterol Direct HDL Cholesterol TSH 3rd Generation Venous Blood Potassium Urine Color Urine Appearance Urine pH Ur Specific [place] Urine Protein Urine Glucose (UA) Urine Ketones Urine Blood Urine Nitrate Urine Bilirubin Urine Urobilinogen Ur Leukocyte Esterase Urine RBC Urine WBC Ur Epithelial Cells Amorphous Sediment Urine Bacteria Influenza Typ A,B (EIA) Attending/Attestation - Attestation I have personally seen and examined this patient.: Yes I have fully participated in the care of the patient.: Yes I have reviewed all pertinent clinical information: Yes
--- NOTE | 2018-06-16 14:32 | CP.PCM.APN ---
Subjective - Date & Time of Evaluation Date of Evaluation: 06/16/18 Time of Evaluation: 11:00 - Subjective Subjective: pt seen and examined at bedside with present, pt isnonvrbal but appers comfortable in no acute distress Review of Systems - Review of Systems Systems not reviewed;Unavailable: Other (pt nonverbal at baseline) All systems: reviewed and no additional remarkable complaints except Objective - Vital Signs/Intake and Output Vital Signs (last 24 hours): Temp Pulse Resp BP Pulse Ox 99.6 F 64 15 115/49 L 97 06/15/18 23:10 06/16/18 11:40 06/16/18 11:40 06/16/18 11:00 06/16/18 11:40 Intake and Output: 06/16/18 06/16/18 06:59 18:59 Intake Total 1216 Output Total 400 Balance 816 - Medications Medications: Current Medications Amiodarone HCl (Cordarone) 400 mg PO BID [facility] Last Admin: 06/16/18 09:11 Dose: 400 mg Aspirin (Ecotrin) 81 mg PO DAILY [facility] Last Admin: 06/16/18 09:14 Dose: 81 mg Carbidopa/Levodopa (Sinemet) 1 tab PO TID [facility] Last Admin: 06/16/18 09:21 Dose: 1 tab Carvedilol (Coreg) 12.5 mg PO BID [facility] Last Admin: 06/16/18 09:12 Dose: 12.5 mg Heparin Sodium (Porcine) (Heparin) 5,000 units SC Q8 [facility]; Protocol Last Admin: 06/16/18 05:52 Dose: 5,000 units Amiodarone HCl/Dextrose (Nexterone 360 Mg In D5w 200 Ml (Premix)) 360 mg in 200 mls @ 16.667 mls/hr IV .Q12H [facility]; Protocol Last Admin: 06/16/18 07:15 Dose: 16.667 mls/hr Cefepime HCl (Maxipime 1gm) 1 gm in 100 mls @ 100 mls/hr IVPB Q12 [facility]; Protocol Pantoprazole Sodium (Protonix Ec Tab) 40 mg PO ACB [facility] - Labs Labs: 06/16/18 05:30 06/16/18 05:30 PT 12.8 SECONDS (9.4-12.5) H 06/15/18 20:17 INR 1.15 06/15/18 20:17 APTT 27.7 Seconds (26.9-38.3) 06/15/18 20:17 - Constitutional Appears: No Acute Distress - Head Exam Head Exam: NORMAL INSPECTION - Eye Exam Eye Exam: Normal appearance - Respiratory Exam Respiratory Exam: Clear to Ausculation Bilateral, NORMAL BREATHING PATTERN - Cardiovascular Exam Cardiovascular Exam: +S1, +S2 - Extremities Exam Extremities Exam: Normal Capillary Refill - Neurological Exam Neurological Exam: Alert, Awake - Skin Skin Exam: Dry, Intact, Warm Assessment and Plan - Assessment and Plan (Free Text) Plan: ITS Impressions Chest X-Ray 06/15/18 19:59 IMPRESSION: No active disease. Urine Color Yellow (YELLOW) 06/15/18 20:45 Urine Appearance Cloudy (CLEAR) 06/15/18 20:45 Urine pH 5.5 (4.7-8.0) 06/15/18 20:45 Ur Specific [place] >= 1.030 (1.005-1.035) 06/15/18 20:45 Urine Protein 30 mg/dL (<30 mg/dL) H 06/15/18 20:45 Urine Glucose (UA) Negative mg/dL (NEGATIVE) 06/15/18 20:45 Urine Ketones Negative mg/dL (NEGATIVE) 06/15/18 20:45 Urine Blood Moderate (NEGATIVE) H 06/15/18 20:45 Urine Nitrate Positive (NEGATIVE) H 06/15/18 20:45 Urine Bilirubin Negative (NEGATIVE) 06/15/18 20:45 Urine Urobilinogen 0.2 E.U./dL (<1 E.U./dL) 06/15/18 20:45 Ur Leukocyte Esterase Moderate Lisa/uL (NEGATIVE) H 06/15/18 20:45 Urine RBC 15 - 20 /hpf (0-2) H 06/15/18 20:45 Urine WBC 25 - 30 /hpf (0-6) H 06/15/18 20:45 Ur Epithelial Cells 6 - 8 /hpf (0-5) H 06/15/18 20:45 Amorphous Sediment Few /hpf (NONE) 06/15/18 20:45 Urine Bacteria Large /hpf (NONE) 06/15/18 20:45 pt is a 72 y old white male with pmh sig for parkinsons and cardiomyopathy who was admitted for cp and had witnessed firing of AICD and VT in the ED, Pt was treated with antiarrhythmic - amio bolus and drip initiation and is now being monitored in the ICU with cardiology consultation. Pt with elevated troponins as well. Pt also noted with positive UA for which ID consultation was sought. Pt is on IV maxipine with pancultures and ID /sepsis workup in progress. will continue to follow clinical course. Jo Giordano BPCI/TIC - BPCIA/TIC Educated pt/family on BPCIA/CIR/Med to Bed Programs: N/A Flyers given, including [facility] Beneficiary letter: N/A Pt/family verbalized understanding & agreed to program: N/A
[2018-06-16] MEDS: Cefepime 1gm in NS 100ml 1 GM/100 ML BAG IVPB SCH ×2 (15:51→21:22)
--- NOTE | 2018-06-16 16:14 | CON ---
DATE OF CONSULTATION: 06/16/2018 REQUESTING PHYSICIAN: Dr. Smith. REASON FOR CONSULTATION: Ventricular tachycardia with multiple ICD firings. HISTORY: This is a 72-year-old man, well known to us, with a history of congestive cardiomyopathy, status post prior ICD implant as well as advanced Parkinson's disease, who was admitted from home yesterday after what appeared to be multiple ICD firings. In the emergency room, he was noted to have evidence of ventricular tachycardia in the apparent ICD firings. He was started on IV amiodarone. He has had no further events overnight. He does have a history of recurrent urinary tract infections, and he apparently has a recurrent infection at this time. He has been treated with ciprofloxacin for this. He was seen lying in bed in the ICU in the presence of his . He is on IV amiodarone and has had runs of nonsustained ventricular tachycardia with no further ICD firings. His troponin was noted to be elevated. PAST MEDICAL HISTORY: His past medical history is notable for the problems mentioned above. 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 He has a history of hypertension, chronic anemia and depression in the past. He also has a history of hyperlipidemia and had a right hip fracture a number of years ago. He underwent prior left hip replacement surgery. CURRENT MEDICATIONS: His current medications include IV amiodarone, carvedilol 12.5 mg b.i.d., Ecotrin once daily, subcutaneous heparin, Protonix, Rocephin, and Sinemet. ALLERGIES: NONE. SOCIAL HISTORY: He is a former smoker, has no history of alcohol abuse. FAMILY HISTORY: Both parents are from age-related illness. REVIEW OF SYSTEMS: A 10-point review of systems is notable mainly for the problems mentioned above. PHYSICAL EXAMINATION: GENERAL: He is a middle-aged man, who appears comfortable at the present time. He is somnolent, but arousable. His speech is labored and movements are slow. VITAL SIGNS: His blood pressure is 102/56 with a pulse of 72 in sinus, respirations are 14. He is currently afebrile, but his temperature was 101 rectally last evening. HEENT: Normocephalic, atraumatic. NECK: Supple. CHEST: Few scattered rhonchi heard. HEART: PMI in normal position. There are soft tones noted. ABDOMEN: The abdomen is soft and nontender with normoactive bowel sounds. EXTREMITIES: No edema. Muscle rigidity is present. SKIN: Warm and dry. PSYCHIATRIC: Flat affect. NEUROLOGIC: Oriented to person and place, responses to questioning noted to be slow and labored and with occasional garbled speech. DIAGNOSTIC DATA: Potassium 3.7, BUN and creatinine of 23 and 1.2. White count 6, hemoglobin and hematocrit are 10.8 and 35 with a platelet count of 120,000. PT/PTT of 12.8 and 27.7. Venous blood gas of 7.45, pCO2 of 36, pO2 of 30. Troponin 0.72, repeat 1.54, followup is 1.01. Cholesterol 153 with LDL 85, HDL of 30, triglycerides 142. Chest x-ray reveals increased cardiac silhouette with no evidence of pulmonary vascular congestion and a defibrillator system is in place. Electrocardiogram reveals a sinus rhythm with frequent PVCs and left bundle-branch block and left axis deviation. IMPRESSION: 1. Recurrent ventricular tachycardia with multiple ICD firings, currently on IV amiodarone, appears stable. 2. Congestive cardiomyopathy, appears compensated at the present time. 3. Urinary tract infection with apparent urosepsis, on IV antibiotics. 4. Advanced Parkinson's disease with associated dementia. RECOMMENDATIONS: 1. Oral amiodarone will be initiated,and after two doses, IV amiodarone will be discontinued. 2. Defibrillator interrogation has been requested of [employer]. 3. Maintenance of therapeutic electrolytes is advised. 4. A prior evaluation has shown no evidence of coronary artery disease, and given the fact and his general condition and other medical problems, conservative management would be appropriate at this time. Thank you for this consultation. I will be happy to follow him through his hospital course as needed. Negro Reyes MD
--- NOTE | 2018-06-16 18:14 | CON ---
DATE: 06/16/2018 NEUROLOGY CONSULTATION CHIEF COMPLAINT: for underlying Parkinson's disease. HISTORY OF PRESENT ILLNESS: This is a 72-year-old man with history of Parkinson's disease, history of Parkinson's induced cognitive impairment/dementia, hypertension, cataract, history of indwelling catheter, in the past he had multiple UTIs, urinary incontinence, history of left hip joint replacement status post left hip open reduction and internal fixation in the past, arthritis, of underlying Parkinson's disease and hypophonia on Sinemet 25 mg p.o. two times a day since he cannot tolerate three times a day due to side effects, who came into the hospital with history of cardiomyopathy with AICD placement, came in with episodes of V-tech and ACID finding several times of chest pain and had dark urine and was dehydrated and found to have UTI as well as V-tach status post AICD interrogation on amiodarone. Currently he is more alert, following commands, hypophonic in nature, he is on Sinemet for his underlying Parkinson's. PAST MEDICAL HISTORY: As above. SOCIAL HISTORY: No illicit drug use, smoking or EtOH abuse. REVIEW OF SYSTEMS: A 14-point review of systems is negative except per the HPI. ALLERGIES: NO KNOWN DRUG ALLERGIES. MEDICATIONS: Reviewed by nurse's reconciliation sheet. FAMILY HISTORY: Noncontributory. LABORATORY DATA: Sodium 139, potassium 3.7, chloride 109, carbon dioxide 23, BUN 23, creatinine 1.2, and random glucose 102. Hemoglobin A1c is 5.2. PHYSICAL EXAMINATION: GENERAL: The patient seen up in bed, no acute distress. VITAL SIGNS: Temperature afebrile, pulse rate of 54, blood pressure 115/49, respiratory rate of 18, and oxygen saturation 96% on room air. HEENT: Atraumatic and normocephalic. PERRLA. Extraocular muscles intact. NECK: Supple. No JVD. No adenopathy noted. LUNGS: Clear to auscultation. No adventitious sounds. HEART: S1 and S2. Normal rate and rhythm. No murmurs, rubs, or gallops. ABDOMEN: Soft and nontender. Nondistended. Bowel sounds are present. EXTREMITIES: No clubbing. No cyanosis. Peripheral pulses 2+ bilaterally. NEUROLOGIC: The patient is alert and oriented to person, place and not much to month, and year. Recall after 5 minutes 0/3. Poor attention span. Slow thought process. Speech is hypophonic. Cranial nerves II through XII are intact. Motor exam; has increased tone throughout, rigidity at the both wrists, slightly more contracted and rigid on the right with compare to the left. Sensory exam; withdraws . DTRs are 2+ in both the knees and ankles. Coordination and gait are deferred for now. ASSESSMENT AND PLAN: This is a 72-year-old man with history of Parkinson's disease, Parkinson's induced dementia, history of recurrent urinary tract infections, benign prostatic hyperplasia, cardiomyopathy status post automatic implantable cardioverter defibrillator, came into the hospital for episodes of chest pain, which resulted in episodes of ventricular tachycardia and automatic implantable cardioverter defibrillator firing several times and was also had dehydration, urinary tract infection currently on antibiotics and amiodarone drip for his ventricular tachycardia. I was called to evaluate for his underlying Parkinson's disease. He has Parkinson's induced dementia as well as severe Parkinson's and with the debilitating deconditioned state. At this time, I did placed him on Sinemet 25/100 mg three times a day as an outpatient, but can only tolerate two times a day for now and also advised cognitive exercising and thiamine 100 mg p.o. daily. At this time, continue to monitor electrolytes and continue to treat for his underlying ventricular tachycardia and urinary tract infection. Continue with current present medical management. PT/OT evaluation. Thank you for this consult. Farhan Loving MD
--- NOTE | 2018-06-16 20:08 | HP ---
DATE OF EXAM: 06/16/2017 HISTORY OF PRESENT ILLNESS: I was doing house calls on him. It is very possible he had a UTI in the outpatient and trying to get a urinalysis done with the finally got it done. At that time she did not want antibiotics started until we know what the infection was. It came out to be sensitive to Cipro. I put him on Cipro, he only had one dose. Then all of a sudden he started having chest pain and it appeared that the ICD was firing at home. He is a 72-year-old white man, who has Parkinson's disease, urinary tract infection history multiple times. He has had Cipro numerous times. He has had an ICD in place. He has a good appetite overall and apparently his defibrillator went off 3 times by the time he got to the emergency room. PAST MEDICAL HISTORY: He has hypertension, dementia, Parkinson's disease, cataracts, anemia history, skin issues, arthritis, urinary tract infections. He has a Do. Depression at times. PAST SURGICAL HISTORY: He had left hip replacement, orthopedic surgery. FAMILY HISTORY: Unknown family history. SOCIAL HISTORY: Former smoker. No alcohol. No drugs. ALLERGIES: NO KNOWN DRUG ALLERGIES. MEDICATIONS: He is on Ecotrin, Coreg. He has been on Bactroban in the past. He has been on Cipro. He is on Sinemet. REVIEW OF SYSTEMS: Difficult, because he has a poor speech. He can speak, slowly mumbled. He is tired. He did have chest pain from the ICD firing. He is smiling. He is alert. He was eating fairly well up until recently, for the past 24 hours. PHYSICAL EXAMINATION VITAL SIGNS: He has a 97.4 temperature, it was as high as 101.6 when he came in, last one was 99.4; he has a 67 pulse, 20 respiratory rate, 105/57 blood pressure, and 99% of O2 sat. HEENT: Head is atraumatic and normocephalic. He is looking at me smiling. Extraocular muscles are intact. Pupils equally reactive to light. Throat is moist. NECK: Supple. HEART: Regular rate. Normal S1 and S2. LUNGS: Decreased breath sounds, but clear to auscultation. ABDOMEN: Soft, nontender. Positive bowel sounds. No guarding. No rebound. No CVA tenderness. EXTREMITIES: There is no edema. He moves everything very slowly due to his Parkinson's. SKIN: Apparently is warm and dry. No apparent rashes noticed. NEUROLOGICAL: He has got very poor verbal skills from his Parkinson's and he mumbles a little bit. He is alert. His farm tractor operator is Dr. Reyes and we will consult him, also with Infectious Disease for the urinary tract infection and Neurology. He is on amiodarone, aspirin, Ativan, Coreg, Ecotrin, heparin, lactate Ringer's, potassium replacement, Protonix, Rocephin, Sinemet, vancomycin, and azithromycin. LABORATORY DATA: He has a 6 white count, 10.8 hemoglobin, 35 hematocrit with a 120 platelets. His INR is 1.15, lactate was 2 and now is down to 0.7. He has a 139 sodium, potassium is 3.7, BUN is 23, creatinine 1.2, GFR is 59, sugar is 102, calcium is 8.6, phosphorus is 3.4, magnesium is 2, total bili is 0.3. AST is 37, ALT is 21, alk phos is 55. His troponin I is 1.54 elevated, it could be from the firing of the ICD, total protein is 5.8, albumin is 3, globulin is 2.8, cholesterol is 153, TSH is 2. Urine showed moderate leukocytes, large bacteria. Negative for the flu. His ICD was firing. IMPRESSION AND PLAN: He does have a urinary tract infection. He will be on IV antibiotics. He will seen by the specialists. Currently he is in the Intensive Care Unit. Rambo Smith DO
--- NOTE | 2018-06-16 21:11 | CARD ---
APPROVED REPORT Date of service: 06/15/2018 EKG Measurement Heart [id number] 150P32 [id number] <Conclusion> Sinus rhythm with frequent premature ventricular complexes and occasional premature atrial complexes Left axis deviation Incomplete left bundle branch block Abnormal ECG
--- NOTE | 2018-06-16 21:13 | CARD ---
APPROVED REPORT Date of service: 06/15/2018 EKG Measurement Heart [id number] <Conclusion> Sinus rhythm with frequent premature ventricular complexes and occasional premature atrial complexes Left axis deviation Incomplete left bundle branch block Abnormal ECG
[2018-06-17 06:46] LABS: BASO # 0.01 K/mm3 (0.0-2.0); BASO % 0.1 % (0.0-3.0); EOS # 0.1 (0.0-0.7); EOS % 1.3 % (1.5-5.0); HEMOGLOBIN 10.9 g/dL (14.0-18.0); LYMPH # 0.9 (1.2-3.4); LYMPH % 12.2 % (22.0-35.0); MEAN CELL VOLUME 83.2 fl (80.0-105.0); MEAN CORPUSCULAR HEMOGLOBIN 26.1 pg (25.0-35.0); MEAN CORPUSCULAR HGB CONC 31.4 g/dl (31.0-37.0); MEAN PLATELET VOLUME 10.9 fl (7.0-11.0); MONO % 12.6 % (1.0-6.0); RBC 4.17 10^6/uL (3.5-6.1); RED CELL DISTRIBUTION WIDTH 15.5 % (11.5-14.5); WHITE BLOOD COUNT 7.5 10^3/uL (4.5-11.0)
[2018-06-17 07:26] LABS: ALBUMIN 2.9 g/dL (3.0-4.8); ALT/SGPT 9 U/L (7-56); AST/SGOT 28 U/L (17-59); BLOOD UREA NITROGEN 19 mg/dL (7-21); CALCIUM 8.7 mg/dL (8.4-10.5); GFR NON-AFRICAN AMERICAN 59
[2018-06-17] MEDS: Pantoprazole 40 mg EC Tab PO SCH (08:45)
[2018-06-17] MEDS: Cefepime 1gm in NS 100ml 1 GM/100 ML BAG IVPB SCH ×2 (09:19→21:12)
[2018-06-17] MEDS ORDERED: Potassium Chloride 20 mEq ER Tab PO ONE (09:58)
--- NOTE | 2018-06-17 10:56 | CP.CCUPN ---
<MikeMamadoudakota Morin - Last Filed: 06/17/18 11:06> CCU Subjective - Physician Review Events Since Last Encounter (Free Text): 06/17/18 10:52 Pt off amio drip, on PO amio Subjective (Free Text): 06/16/18 11:28 Pt seen and examined, pt is non verbal, in NAD 06/17/18 10:52 Pt seen and examined, at bedside, no new complaints at this time CCU Objective - Vital Signs / Intake & Output Vital Signs (Last 4 hours): Vital Signs Pulse BP 06/17/18 09:18 88 113/54 L Intake and Output (Last 8hrs): Intake & Output 06/16/18 06/17/18 06/17/18 22:59 06:59 14:59 Intake Total 940 250 Output Total 300 300 Balance 640 -50 Intake: IV 700 Right Wrist 700 Oral 240 250 Output: Urine 300 300 Urethral (Brewer) 300 300 - Physical Exam Head: Positive for: Atraumatic, Normocephalic Pupils: Positive for: PERRL Extroacular Muscles: Positive for: EOMI Conjunctiva: Positive for: Normal Mouth: Positive for: Moist Mucous Membranes Neck: Positive for: Normal Range of Motion Respiratory/Chest: Positive for: Clear to Auscultation, Good Air Exchange. Negative for: Respiratory Distress, Accessory Muscle Use Cardiovascular: Positive for: Regular Rate and Rhythm, Normal S1, S2. Negative for: Murmurs Abdomen: Negative for: Tenderness, Distention, Peritoneal Signs Back: Positive for: Normal Inspection Upper Extremity: Positive for: Normal Inspection. Negative for: Cyanosis, Edema Lower Extremity: Positive for: Normal Inspection. Negative for: Edema Neurological: Positive for: Other (non verbal, ) Skin: Positive for: Warm, Dry, Normal Color. Negative for: Rashes Psychiatric: Positive for: Alert - Medications Active Medications: Active Medications Generic Name Dose Route Start Last Admin Trade Name Freq PRN Reason Stop Dose Admin Amiodarone HCl 400 mg 06/16/18 10:00 06/17/18 09:18 Cordarone PO 400 mg BID BERONICA Administration Aspirin 81 mg 06/16/18 10:00 06/17/18 09:18 Ecotrin PO 81 mg DAILY BERONICA Administration Carbidopa/Levodopa 1 tab 06/17/18 10:00 Sinemet PO BID BERONICA Carvedilol 12.5 mg 06/16/18 10:00 06/17/18 09:18 Coreg PO 12.5 mg BID BERONICA Administration Heparin Sodium (Porcine) 5,000 units 06/16/18 06:00 06/17/18 05:50 Heparin SC 5,000 units Q8 BERONICA Administration Protocol Cefepime HCl 1 gm in 100 mls @ 100 mls/hr 06/16/18 12:00 06/17/18 09:19 Maxipime 1gm IVPB 100 mls/hr Q12 BERONICA Administration Protocol Pantoprazole Sodium 40 mg 06/17/18 07:30 06/17/18 08:45 Protonix Ec Tab PO 40 mg ACB BERONICA Administration - Patient Studies Lab Studies: Microbiology Studies 06/15/18 20:45 Blood Culture - Preliminary Blood NO GROWTH AFTER 24 HOURS 06/15/18 20:15 Blood Culture - Preliminary Blood NO GROWTH AFTER 24 HOURS Lab Studies 06/17/18 06/17/18 06/16/18 Range/Units 05:30 05:30 05:30 WBC 7.5 D (4.5-11.0) 10^3/uL RBC 4.17 (3.5-6.1) 10^6/uL Hgb 10.9 L (14.0-18.0) g/dL Hct 34.7 L (42.0-52.0) % MCV 83.2 (80.0-105.0) fl MCH 26.1 (25.0-35.0) pg MCHC 31.4 (31.0-37.0) g/dl RDW 15.5 H (11.5-14.5) % Plt Count 126 (120.0-450.0) 10^3/uL MPV 10.9 (7.0-11.0) fl Neut % (Auto) 73.8 H (50.0-68.0) % Lymph % (Auto) 12.2 L (22.0-35.0) % Lea % (Auto) 12.6 H (1.0-6.0) % Eos % (Auto) 1.3 L (1.5-5.0) % Baso % (Auto) 0.1 (0.0-3.0) % Lymph # (Auto) 0.9 L (1.2-3.4) Lea # (Auto) 1.0 H (0.1-0.6) Eos # (Auto) 0.1 (0.0-0.7) Baso # (Auto) 0.01 (0.0-2.0) K/mm3 Absolute Neuts (auto) 5.56 (1.4-6.5) Sodium 140 (132-148) mmol/L Potassium 3.7 (3.6-5.0) mmol/L Chloride 109 H (98-107) mmol/L Carbon Dioxide 24 (21-33) mmol/L Anion Gap 10 (10-20) BUN 19 (7-21) mg/dL Creatinine 1.2 (0.8-1.5) mg/dl Est GFR ( Amer) > 60 Est GFR (Non-Af Amer) 59 Random Glucose 87 (70-110) mg/dL Hemoglobin A1c 5.9 (4.2-6.5) % Calcium 8.7 (8.4-10.5) mg/dL Total Bilirubin 0.2 (0.2-1.3) mg/dL AST 28 (17-59) U/L ALT 9 (7-56) U/L Alkaline Phosphatase 69 (38-126) U/L Total Protein 6.0 (5.8-8.3) g/dL Albumin 2.9 L (3.0-4.8) g/dL Globulin 3.0 gm/dL Albumin/Globulin Ratio 1.0 L (1.1-1.8) Laboratory Results - last 24 hr 06/16/18 06/17/18 06/17/18 05:30 05:30 05:30 WBC 7.5 D RBC 4.17 Hgb 10.9 L Hct 34.7 L MCV 83.2 MCH 26.1 MCHC 31.4 RDW 15.5 H Plt Count 126 MPV 10.9 Neut % (Auto) 73.8 H Lymph % (Auto) 12.2 L Lea % (Auto) 12.6 H Eos % (Auto) 1.3 L Baso % (Auto) 0.1 Lymph # (Auto) 0.9 L Lea # (Auto) 1.0 H Eos # (Auto) 0.1 Baso # (Auto) 0.01 Absolute Neuts (auto) 5.56 Sodium 140 Potassium 3.7 Chloride 109 H Carbon Dioxide 24 Anion Gap 10 BUN 19 Creatinine 1.2 Est GFR ( Amer) > 60 Est GFR (Non-Af Amer) 59 Random Glucose 87 Hemoglobin A1c 5.9 Calcium 8.7 Total Bilirubin 0.2 AST 28 ALT 9 Alkaline Phosphatase 69 Total Protein 6.0 Albumin 2.9 L Globulin 3.0 Albumin/Globulin Ratio 1.0 L Critical Care Progress Note - Nutrition Nutrition: Nutrition Category Date Time Status Heart Healthy Diet [DIET] Diets 06/15/18 Dinner Active Assessment/Plan - Assessment and Plan (Free Text) Assessment: Pt is a 72 yo male with PMH of Parkinson's, and cardiomyopathy (ICD placement) admitted following episodes of Vtach and ICD firing. Patient is admitted to ICU for management of amiodarone drip, pt off drip at this time, pt to be tr ansferred to the floor. Plan: Neuro - History of Parkinson's, non verbal - Monitor change in neuro status - continue carodopa/ levodopa - Neuro consulted, Dr Loivng Cardio - Patient's clutching of chest likely due to ICD firing - Trop 0.72, 1.54, 1.01 - pt had an episode of non sustained V tach last night - AICD rep interrogated device, found that his device fired 7 times, all shocks were appropriate - pt has been started on PO amiodarone, amio drip has been discontinued - ASA - Cardio consulted, Dr. Reyes, following Pulm - Maintain O2 saturation >90% GI - HHD Renal/ - BUN 19 - Cr 1.2 - UTI - cefepime - brewer in place Endocrine - maintain euglycemia Heme/onc - Hgb 10.9 - INR 1.15 - monitor for hemodynamic instability ID - UTI - urine culture follow up - blood culture NGTD - cefepime - ID consulted, Dr Turner Dispo: transfer pt to floor today Pt seen, examined, assessment and plan discussed with Dr Roger Mckeon PGY1 - Date & Time Date: 06/17/18 Time: 07:00 <Delgado Duran - Last Filed: 06/17/18 12:39> CCU Objective - Vital Signs / Intake & Output Vital Signs (Last 4 hours): Vital Signs Pulse Resp BP Pulse Ox 06/17/18 11:30 80 20 96 06/17/18 11:20 81 22 97 06/17/18 11:10 82 20 96 06/17/18 11:00 80 21 126/67 96 06/17/18 10:58 81 06/17/18 10:57 82 22 06/17/18 10:55 82 24 06/17/18 10:54 82 25 H 06/17/18 10:53 82 28 H 06/17/18 10:52 82 06/17/18 10:51 83 16 06/17/18 10:50 83 23 67 L 06/17/18 10:42 81 22 06/17/18 10:41 81 19 06/17/18 10:40 81 78 L 06/17/18 10:30 82 06/17/18 10:29 79 18 06/17/18 10:26 79 18 06/17/18 10:25 79 19 06/17/18 10:24 80 19 06/17/18 10:23 80 17 06/17/18 10:22 80 19 06/17/18 10:20 80 92 L 06/17/18 10:10 80 18 90 L 06/17/18 10:00 82 17 116/64 91 L 06/17/18 09:50 86 27 H 76 L 06/17/18 09:45 86 21 06/17/18 09:44 87 24 06/17/18 09:43 88 18 06/17/18 09:42 88 32 H 06/17/18 09:41 86 26 H 06/17/18 09:40 87 22 06/17/18 09:38 86 27 H 06/17/18 09:35 87 12 06/17/18 09:34 87 13 06/17/18 09:33 87 27 H 06/17/18 09:32 87 23 06/17/18 09:31 87 26 H 06/17/18 09:30 88 14 98 06/17/18 09:27 87 34 H 06/17/18 09:26 87 23 06/17/18 09:24 87 25 H 06/17/18 09:23 88 24 06/17/18 09:21 87 06/17/18 09:20 89 15 88 L 06/17/18 09:19 87 26 H 06/17/18 09:18 88 113/54 L 06/17/18 09:10 87 31 H 99 06/17/18 09:07 86 06/17/18 08:46 82 Intake and Output (Last 8hrs): Intake & Output 06/16/18 06/17/18 06/17/18 22:59 06:59 14:59 Intake Total 940 250 Output Total 300 300 Balance 640 -50 Intake: IV 700 Right Wrist 700 Oral 240 250 Output: Urine 300 300 Urethral (Brewer) 300 300 - Medications Active Medications: Active Medications Generic Name Dose Route Start Last Admin Trade Name Freq PRN Reason Stop Dose Admin Amiodarone HCl 400 mg 06/16/18 10:00 06/17/18 09:18 Cordarone PO 400 mg BID BERONICA Administration Aspirin 81 mg 06/16/18 10:00 06/17/18 09:18 Ecotrin PO 81 mg DAILY BERONICA Administration Carbidopa/Levodopa 1 tab 06/17/18 10:00 Sinemet PO BID BERONICA Carvedilol 12.5 mg 06/16/18 10:00 06/17/18 09:18 Coreg PO 12.5 mg BID BERONICA Administration Heparin Sodium (Porcine) 5,000 units 06/16/18 06:00 06/17/18 05:50 Heparin SC 5,000 units Q8 BERONICA Administration Protocol Cefepime HCl 1 gm in 100 mls @ 100 mls/hr 06/16/18 12:00 06/17/18 09:19 Maxipime 1gm IVPB 100 mls/hr Q12 BERONICA Administration Protocol Pantoprazole Sodium 40 mg 06/17/18 07:30 06/17/18 08:45 Protonix Ec Tab PO 40 mg ACB BERONICA Administration - Patient Studies Lab Studies: Microbiology Studies 06/15/18 20:45 Blood Culture - Preliminary Blood NO GROWTH AFTER 24 HOURS 06/15/18 20:15 Blood Culture - Preliminary Blood NO GROWTH AFTER 24 HOURS Lab Studies 06/17/18 06/17/18 06/17/18 Range/Units 11:30 05:30 05:30 WBC 7.5 D (4.5-11.0) 10^3/uL RBC 4.17 (3.5-6.1) 10^6/uL Hgb 10.9 L (14.0-18.0) g/dL Hct 34.7 L (42.0-52.0) % MCV 83.2 (80.0-105.0) fl MCH 26.1 (25.0-35.0) pg MCHC 31.4 (31.0-37.0) g/dl RDW 15.5 H (11.5-14.5) % Plt Count 126 (120.0-450.0) 10^3/uL MPV 10.9 (7.0-11.0) fl Neut % (Auto) 73.8 H (50.0-68.0) % Lymph % (Auto) 12.2 L (22.0-35.0) % Lea % (Auto) 12.6 H (1.0-6.0) % Eos % (Auto) 1.3 L (1.5-5.0) % Baso % (Auto) 0.1 (0.0-3.0) % Lymph # (Auto) 0.9 L (1.2-3.4) Lea # (Auto) 1.0 H (0.1-0.6) Eos # (Auto) 0.1 (0.0-0.7) Baso # (Auto) 0.01 (0.0-2.0) K/mm3 Absolute Neuts (auto) 5.56 (1.4-6.5) Sodium 140 (132-148) mmol/L Potassium 3.7 (3.6-5.0) mmol/L Chloride 109 H (98-107) mmol/L Carbon Dioxide 24 (21-33) mmol/L Anion Gap 10 (10-20) BUN 19 (7-21) mg/dL Creatinine 1.2 (0.8-1.5) mg/dl Est GFR ( Amer) > 60 Est GFR (Non-Af Amer) 59 Random Glucose 87 (70-110) mg/dL Calcium 8.7 (8.4-10.5) mg/dL Total Bilirubin 0.2 (0.2-1.3) mg/dL AST 28 (17-59) U/L ALT 9 (7-56) U/L Alkaline Phosphatase 69 (38-126) U/L Total Protein 6.0 (5.8-8.3) g/dL Albumin 2.9 L (3.0-4.8) g/dL Globulin 3.0 gm/dL Albumin/Globulin Ratio 1.0 L (1.1-1.8) Prostate Specific Ag 8.7 H (0-4.0) ng/mL Laboratory Results - last 24 hr 06/17/18 06/17/18 06/17/18 05:30 05:30 11:30 WBC 7.5 D RBC 4.17 Hgb 10.9 L Hct 34.7 L MCV 83.2 MCH 26.1 MCHC 31.4 RDW 15.5 H Plt Count 126 MPV 10.9 Neut % (Auto) 73.8 H Lymph % (Auto) 12.2 L Lea % (Auto) 12.6 H Eos % (Auto) 1.3 L Baso % (Auto) 0.1 Lymph # (Auto) 0.9 L Lea # (Auto) 1.0 H Eos # (Auto) 0.1 Baso # (Auto) 0.01 Absolute Neuts (auto) 5.56 Sodium 140 Potassium 3.7 Chloride 109 H Carbon Dioxide 24 Anion Gap 10 BUN 19 Creatinine 1.2 Est GFR ( Amer) > 60 Est GFR (Non-Af Amer) 59 Random Glucose 87 Calcium 8.7 Total Bilirubin 0.2 AST 28 ALT 9 Alkaline Phosphatase 69 Total Protein 6.0 Albumin 2.9 L Globulin 3.0 Albumin/Globulin Ratio 1.0 L Prostate Specific Ag 8.7 H Critical Care Progress Note - Nutrition Nutrition: Nutrition Category Date Time Status Heart Healthy Diet [DIET] Diets 06/15/18 Dinner Active Assessment/Plan - Assessment and Plan (Free Text) Plan: Patient seen and examined on rounds with resident, agree with note with following additions/exceptions: Patient is 72yo male with PMHx of Parkinson's, recurrent UTI, BPH, and cardiomyopathy (ICD placement) admitted following episodes of Vtach and ICD firing several times. Currently afebrile HD stable, comfortable in NAD Labs, imaging, chart reviewed AICD interrogated, as per rep, appropriate shocks OFF Amio drip Switched to PO Amio Cardiology following, Dr Avila AICD shocks UTI BPH Parkinsons Recommend: - supp o2 as needed, duonebs PRN - ABx as per IDMaria Alejandra Vanco - BP control - Amio PO - keep K>4, Mg>2 - follow up cultures - c/w Sinemet - GI ppx - DVT ppx, HSQ - transfer to tele
--- NOTE | 2018-06-17 12:23 | PN ---
DATE: 06/17/2018 SUBJECTIVE: He is in the intensive care unit. I saw him with the pattern grader cutter. We are trying to get him out of the intensive care unit today. He had SVT, his ICD fired three times. He has Parkinson, UTI. He had troponins, which are probably related to the firing of the ICD. He is on Cordarone, Coreg, Ecotrin, heparin, Maxipime, Protonix, and Sinemet. He will be transferred out of the intensive care unit today. He also need to drink more water. We do not want to do IV fluids to put him into CHF. PHYSICAL EXAMINATION: VITAL SIGNS: Temperature 98, 81 pulse, 113/68 blood pressure, 15 respiratory rate, 97% O2 saturation on room air. GENERAL: He is in bed, smiling. We are trying to get him to eat little bit more. HEENT: His head is atraumatic and normocephalic. He is slow to talk due to the Parkinson's disease, but he did smile for me. HEART: Regular rate. LUNGS: Decreased breath sounds, but clear. ABDOMEN: Soft. EXTREMITIES: No edema. LABORATORY DATA: He has 7.5 white count, 10.9 hemoglobin, 34.7 hematocrit, 126 platelets. Sodium 140, potassium 3.7, BUN 19, creatinine 1.2, better, GFR is 59. Sugar is 87, calcium is 8.7, total bilirubin 0.2, AST 20, ALT is 9, alkaline phosphatase 69, troponin down to 1.01, and total protein is 6. So, his kidney functions are very good. His urine is a little bit dark. He has got some large bacteria, so he does have a UTI and he is on Maxipime. He has got to drink more water. I discussed this with the at length. We will check his labs tomorrow. We will get him out of the unit today. I ordered some physical therapy, also out of bed to chair. Rambo Smith DO
--- NOTE | 2018-06-17 13:33 | PN ---
DATE: 06/17/2018 SUBJECTIVE: The patient was seen lying in bed in the CCU. He is more awake and alert today. He is eating well. He was seen in the presence of his and son. He has had several runs of nonsustained ventricular tachycardia yesterday with no defibrillator firings. He is currently on oral amiodarone, IV amiodarone has been discontinued. His current medications include amiodarone 400 mg b.i.d., carvedilol 12.5 mg b.i.d., Ecotrin once daily, subcutaneous heparin, Maxipime, Protonix, and Sinemet. OBJECTIVE: GENERAL: He is a middle-aged male who appears comfortable. VITAL SIGNS: His blood pressure is 112/70 with a pulse of 80 and sinus, respiratory rate are 16, he is afebrile. HEENT: No JVD. CHEST: Few scattered rhonchi. HEART: PMI displaced laterally. Soft tones noted. ABDOMEN: Soft, nontender with normoactive bowel sounds. EXTREMITIES: No edema. DIAGNOSTIC DATA: Potassium is 3.7, BUN and creatinine 19 and 1.2. White count is 7.5, hemoglobin and hematocrit 10.9 and 34.7, platelet count 126,000. IMPRESSION: 1. Recurrent ventricular tachycardia status post multiple implantable cardioverter defibrillator firings recently, now on amiodarone therapy. 2. History of congestive cardiomyopathy. 3. Severe Parkinson's disease with associated dementia. 4. Urosepsis, clinically improved. RECOMMENDATIONS: Oral amiodarone loading, we will continue for now. The rest of his medication will continue unchanged. Transfer to telemetry is reasonable. Hopefully, discharged home within next several days will be appropriate. I will follow along and make further recommendations as appropriate. Negro Reyes MD
--- NOTE | 2018-06-17 14:37 | CP.PCM.PN ---
<Justin Pacheco - Last Filed: 06/17/18 14:35> Subjective - Date & Time of Evaluation Date of Evaluation: 06/17/18 Time of Evaluation: 09:50 - Subjective Subjective: Justin Pacheco D.O. PGY-3, Internal Medicine Resident, Infectious Disease Progress Note 72 year old male with PMH of Parkinson's disease, cardiomyopathy with AICD who presented for concern for an episode of patient clutching his chest more than once today. Infectious disease consultation was requested for sepsis. Patient was seen and examined at bedside. Resting comfortably. Son at bedside. No acute complaints. Objective - Vital Signs/Intake and Output Vital Signs (last 24 hours): Temp Pulse Resp BP Pulse Ox 98.1 F 80 20 126/67 96 06/17/18 08:12 06/17/18 11:30 06/17/18 11:30 06/17/18 11:00 06/17/18 11:30 Intake and Output: 06/17/18 06/17/18 06:59 18:59 Intake Total 250 Output Total 300 Balance -50 - Medications Medications: Current Medications Amiodarone HCl (Cordarone) 400 mg PO BID [facility] Last Admin: 06/17/18 09:18 Dose: 400 mg Aspirin (Ecotrin) 81 mg PO DAILY [facility] Last Admin: 06/17/18 09:18 Dose: 81 mg Carbidopa/Levodopa (Sinemet) 1 tab PO BID [facility] Last Admin: 06/17/18 13:49 Dose: Not Given Carvedilol (Coreg) 12.5 mg PO BID [facility] Last Admin: 06/17/18 09:18 Dose: 12.5 mg Heparin Sodium (Porcine) (Heparin) 5,000 units SC Q8 [facility]; Protocol Last Admin: 06/17/18 13:48 Dose: 5,000 units Cefepime HCl (Maxipime 1gm) 1 gm in 100 mls @ 100 mls/hr IVPB Q12 [facility]; Protocol Last Admin: 06/17/18 09:19 Dose: 100 mls/hr Pantoprazole Sodium (Protonix Ec Tab) 40 mg PO ACB [facility] Last Admin: 06/17/18 08:45 Dose: 40 mg - Labs Labs: 06/17/18 05:30 06/17/18 05:30 PT 12.8 SECONDS (9.4-12.5) H 06/15/18 20:17 INR 1.15 06/15/18 20:17 APTT 27.7 Seconds (26.9-38.3) 06/15/18 20:17 - Constitutional Appears: Non-toxic, Chronically Ill - Head Exam Head Exam: ATRAUMATIC, NORMOCEPHALIC - Eye Exam Eye Exam: EOMI. absent: Scleral icterus - ENT Exam ENT Exam: Mucous Membranes Moist - Neck Exam Neck exam: Positive for: Normal Inspection - Respiratory Exam Respiratory Exam: Clear to Auscultation Bilateral. absent: Rales, Rhonchi, Wheezes - Cardiovascular Exam Cardiovascular Exam: +S1, +S2, AICD in place - GI/Abdominal Exam GI & Abdominal Exam: Normal Bowel Sounds, Soft. absent: Distended, Tenderness - Extremities Exam Extremities exam: Negative for: calf tenderness - Neurological Exam Neurological exam: Alert - Skin Skin Exam: Dry, Warm Assessment and Plan - Assessment and Plan (Free Text) Assessment: 72 year old male with PMH of Parkinson's disease, cardiomyopathy with AICD who presented for concern for an episode of patient clutching his chest more than once today. Infectious disease consultation was requested for sepsis. Plan: Sepsis likely from urinary source NSTEMI Cardiomyopathy with AICD with multiple episodes of firing Parkison's disease with dementia Continue cefepime day 2 BCx negative 2/ day 2 Discussed with ICU team We will follow with you Patient was seen and examined and case to be discussed with attending physician Thank you for the pleasure of participating in the care of this interesting patient <NagaFranki rosales - Last Filed: 06/17/18 15:01> Objective - Vital Signs/Intake and Output Vital Signs (last 24 hours): Temp Pulse Resp BP Pulse Ox 98.1 F 80 20 126/67 96 06/17/18 08:12 06/17/18 11:30 06/17/18 11:30 06/17/18 11:00 06/17/18 11:30 Intake and Output: 06/17/18 06/17/18 06:59 18:59 Intake Total 250 Output Total 300 Balance -50 - Medications Medications: Current Medications Amiodarone HCl (Cordarone) 400 mg PO BID [facility] Last Admin: 06/17/18 09:18 Dose: 400 mg Aspirin (Ecotrin) 81 mg PO DAILY [facility] Last Admin: 06/17/18 09:18 Dose: 81 mg Carbidopa/Levodopa (Sinemet) 1 tab PO BID [facility] Last Admin: 06/17/18 13:49 Dose: Not Given Carvedilol (Coreg) 12.5 mg PO BID [facility] Last Admin: 06/17/18 09:18 Dose: 12.5 mg Heparin Sodium (Porcine) (Heparin) 5,000 units SC Q8 [facility]; Protocol Last Admin: 06/17/18 13:48 Dose: 5,000 units Cefepime HCl (Maxipime 1gm) 1 gm in 100 mls @ 100 mls/hr IVPB Q12 [facility]; Protocol Last Admin: 06/17/18 09:19 Dose: 100 mls/hr Pantoprazole Sodium (Protonix Ec Tab) 40 mg PO ACB [facility] Last Admin: 06/17/18 08:45 Dose: 40 mg - Labs Labs: 06/17/18 05:30 06/17/18 05:30 PT 12.8 SECONDS (9.4-12.5) H 06/15/18 20:17 INR 1.15 06/15/18 20:17 APTT 27.7 Seconds (26.9-38.3) 06/15/18 20:17 Attending/Attestation - Attestation I have personally seen and examined this patient.: Yes I have fully participated in the care of the patient.: Yes I have reviewed all pertinent clinical information, including history, physical exam and plan: Yes
[2018-06-18 06:01] LABS: BASO # 0.01 K/mm3 (0.0-2.0); BASO % 0.1 % (0.0-3.0); EOS # 0.3 (0.0-0.7); EOS % 3.5 % (1.5-5.0); HEMOGLOBIN 10.7 g/dL (14.0-18.0); LYMPH # 0.7 (1.2-3.4); MEAN CELL VOLUME 81.3 fl (80.0-105.0); MEAN PLATELET VOLUME 10.4 fl (7.0-11.0); MONO # 1.3 (0.1-0.6); MONO % 15.2 % (1.0-6.0); RBC 4.11 10^6/uL (3.5-6.1); RED CELL DISTRIBUTION WIDTH 15.6 % (11.5-14.5); WHITE BLOOD COUNT 8.7 10^3/uL (4.5-11.0)
[2018-06-18 06:54] LABS: ALBUMIN 3.1 g/dL (3.0-4.8); ALT/SGPT 16 U/L (7-56); AST/SGOT 23 U/L (17-59); BLOOD UREA NITROGEN 18 mg/dL (7-21); CALCIUM 8.8 mg/dL (8.4-10.5); GFR NON-AFRICAN AMERICAN 59
[2018-06-18] MEDS: Pantoprazole 40 mg EC Tab PO SCH (09:48)
--- NOTE | 2018-06-18 11:18 | PN ---
DATE: 06/18/2018 SUBJECTIVE: I saw him resting comfortably in bed in Intensive Care Unit. He is sleeping. His is with him. He is on Benadryl, Cordarone, Coreg, Ecotrin, Heparin, potassium, Protonix, Sinemet and Tylenol. PHYSICAL EXAMINATION: VITAL SIGNS: Temperature 98.5, pulse 85, blood pressure 129/93 little bit high for him, respiratory rate 18 and O2 sat 96% on room air. HEENT: Head is atraumatic and normocephalic. HEART: Regular rate. LUNGS: Decreased breath sounds, but clear. ABDOMEN: Soft. EXTREMITIES: No edema. NEUROLOGIC: He has got Parkinson's, him to talk. LABORATORY DATA: He has moderate leukocytes large bacteria in the urine. Sodium 140, potassium 3.9, BUN 18, creatinine 1.2, GFR is 59, sugar is 92, and calcium is 8.8. Total bili is 0.3, AST is 23, ALT is 16, and alk phos 73. Troponin I was 1.01. Total protein 6. Globulin 3.1. PSA was elevated at 8.7, has a urology consult. White count 8.7, hemoglobin 10.7, hematocrit 33.4 and platelets 130. Micro came back MRSA in the urine. ASSESSMENT AND PLAN: He is being seen by Infectious Disease, the Athletic Equipment Custodian in the Intensive Care Unit, Cardiology, Neurology, and waiting for Urology to see him. He has supraventricular tachycardia. He has Parkinson's. He has urinary tract infection MRSA. Urinary tract infections, elevated PSA, right now waiting for Urology to see him and see if Infectious Disease wants to do anything about his MRSA in the urine. Presently, he is not on any antibiotics. Seen in the Intensive Care Unit. Rambo Smith DO [email or web address]
--- NOTE | 2018-06-18 13:21 | CP.PCM.PN ---
<Justin Pacheco - Last Filed: 06/18/18 13:17> Subjective - Date & Time of Evaluation Date of Evaluation: 06/18/18 Time of Evaluation: 07:20 - Subjective Subjective: Justin Pacheco D.O. PGY-3, Internal Medicine Resident, Infectious Disease Progress Note 72 year old male with PMH of Parkinson's disease, cardiomyopathy with AICD who presented for concern for an episode of patient clutching his chest more than once today. Infectious disease consultation was requested for sepsis. Patient was seen and examined at bedside. at bedside. Still mostly nonverbal. Appears comfortable. Objective - Vital Signs/Intake and Output Vital Signs (last 24 hours): Temp Pulse Resp BP Pulse Ox 98.5 F 90 18 129/93 H 96 06/18/18 04:00 06/18/18 10:00 06/18/18 04:00 06/18/18 04:00 06/18/18 04:00 Intake and Output: 06/18/18 06/18/18 06:59 18:59 Output Total 300 Balance -300 - Medications Medications: Current Medications Amiodarone HCl (Cordarone) 400 mg PO BID [facility] Last Admin: 06/18/18 09:47 Dose: 400 mg Aspirin (Ecotrin) 81 mg PO DAILY [facility] Last Admin: 06/18/18 09:47 Dose: 81 mg Carbidopa/Levodopa (Sinemet) 1 tab PO BID [facility] Last Admin: 06/18/18 09:47 Dose: 1 tab Carvedilol (Coreg) 12.5 mg PO BID [facility] Last Admin: 06/18/18 09:47 Dose: 12.5 mg Heparin Sodium (Porcine) (Heparin) 5,000 units SC Q8 [facility]; Protocol Last Admin: 06/18/18 05:57 Dose: 5,000 units Daptomycin 340 mg/ Sodium (Chloride) 100 mls @ 200 mls/hr IV Q24H [facility]; Protocol Stop: 06/23/18 12:01 Last Admin: 06/18/18 12:47 Dose: 200 mls/hr Pantoprazole Sodium (Protonix Ec Tab) 40 mg PO ACB [facility] Last Admin: 06/18/18 09:48 Dose: 40 mg - Labs Labs: 06/18/18 05:15 06/18/18 05:15 PT 12.8 SECONDS (9.4-12.5) H 06/15/18 20:17 INR 1.15 06/15/18 20:17 APTT 27.7 Seconds (26.9-38.3) 06/15/18 20:17 - Constitutional Appears: Non-toxic, Chronically Ill male - Head Exam Head Exam: ATRAUMATIC, NORMOCEPHALIC - Eye Exam Eye Exam: EOMI. absent: Scleral icterus - ENT Exam ENT Exam: Mucous Membranes Moist - Neck Exam Neck exam: Positive for: Normal Inspection - Respiratory Exam Respiratory Exam: Clear to Auscultation Bilateral. absent: Rales, Rhonchi, Wheezes - Cardiovascular Exam Cardiovascular Exam: +S1, +S2, AICD in place - GI/Abdominal Exam GI & Abdominal Exam: Normal Bowel Sounds, Soft. absent: Distended, Tenderness - Extremities Exam Extremities exam: Negative for: calf tenderness - Neurological Exam Neurological exam: Alert, Awake, mostly nonverbal - Skin Skin Exam: Dry, Warm Assessment and Plan - Assessment and Plan (Free Text) Assessment: 72 year old male with PMH of Parkinson's disease, cardiomyopathy with AICD who presented for concern for an episode of patient clutching his chest more than once today. Infectious disease consultation was requested for sepsis. Plan: Sepsis likely from urinary source Cardiomyopathy with AICD with multiple episodes of firing Parkison's disease with dementia BPH Urine culture growing MRSA Started on vancomycin day 1 Discontinue cefepime BCx negative 2/ day 2 Discussed with ICU team We will follow with you Patient was seen and examined and case to be discussed with attending physician Thank you for the pleasure of participating in the care of this interesting patient <Franki Turner - Last Filed: 06/18/18 16:23> Objective - Vital Signs/Intake and Output Vital Signs (last 24 hours): Temp Pulse Resp BP Pulse Ox 98.6 F 79 22 118/58 L 95 06/18/18 14:00 06/18/18 14:50 06/18/18 14:50 06/18/18 14:00 06/18/18 14:50 Intake and Output: 06/18/18 06/18/18 06:59 18:59 Output Total 300 Balance -300 - Medications Medications: Current Medications Amiodarone HCl (Cordarone) 400 mg PO BID [facility] Last Admin: 06/18/18 09:47 Dose: 400 mg Aspirin (Ecotrin) 81 mg PO DAILY [facility] Last Admin: 06/18/18 09:47 Dose: 81 mg Carbidopa/Levodopa (Sinemet) 1 tab PO BID [facility] Last Admin: 06/18/18 09:47 Dose: 1 tab Carvedilol (Coreg) 12.5 mg PO BID [facility] Last Admin: 06/18/18 09:47 Dose: 12.5 mg Heparin Sodium (Porcine) (Heparin) 5,000 units SC Q8 [facility]; Protocol Last Admin: 06/18/18 14:45 Dose: 5,000 units Linezolid (Zyvox 600mg/300ml D5w) 600 mg in 300 mls @ 200 mls/hr IVPB Q12 [facility]; Protocol Stop: 06/25/18 22:01 Pantoprazole Sodium (Protonix Ec Tab) 40 mg PO ACB [facility] Last Admin: 06/18/18 09:48 Dose: 40 mg - Labs Labs: 06/18/18 05:15 06/18/18 05:15 PT 12.8 SECONDS (9.4-12.5) H 06/15/18 20:17 INR 1.15 06/15/18 20:17 APTT 27.7 Seconds (26.9-38.3) 06/15/18 20:17 Attending/Attestation - Attestation I have personally seen and examined this patient.: Yes I have fully participated in the care of the patient.: Yes I have reviewed all pertinent clinical information, including history, physical exam and plan: Yes
[2018-06-18 18:45] VITALS: O2SAT 92
[2018-06-18] MEDS: Linezolid 600 mg in D5W 300 ml 600 MG/300 ML BAG IVPB SCH (21:40)
--- NOTE | 2018-06-18 21:41 | PN ---
DATE: 06/18/2018 UROLOGY PROGRESS NOTE SUBJECTIVE: I was asked to consult on this patient who I know from prior admissions. The patient has a history of end-stage Parkinson's disease, neurogenic bladder with urinary retention. The patient's previously had been catheterizing him with intermittent catheterization at home. The patient was having chest pain. He has an implanted defibrillator, which reportedly was firing multiple times and he was brought to the hospital for evaluation and is now in the coronary care unit at [facility]. During the hospitalization, the patient had a Do catheter inserted. LABORATORY DATA: He has been found to have an MRSA urine culture. His blood cultures are negative after 48 hours. His WBC count has been normal. His GFR is normal at 59. No pertinent urology imaging has been done. ASSESSMENT AND PLAN: Do catheter is in place draining over 300 mL per shift. I discussed the patient with the patient's nursing staff. The Do catheter was in and draining well. Given his obvious significant comorbid conditions with the defibrillator firing and an apparent elevated troponins likely cardiovascular event, my recommendation is currently to leave the Do catheter indwelling. The patient is being seen by Infectious Disease and treated for the urinary infection. He does not appear to have sepsis. The blood cultures are currently negative. There is no indication for acute urologic surgical intervention at this time. The patient needs continued cardiac care and antibiotics as per Infectious Disease recommendation. When the patient's condition has improved, we will consider removing the Do catheter prior to discharge and he can continue with intermittent catheterization at home. We will discuss further imaging with his current medical team. Tank Aguillon MD
--- NOTE | 2018-06-18 23:35 | PN ---
DATE: 06/18/2018 SUBJECTIVE: The patient is seen lying in bed in the CCU. He remains comfortable. He is awake and alert. He has had several short runs of nonsustained ventricular tachycardia, but has had no defibrillator firings. CURRENT MEDICATIONS: Include amiodarone 400 mg b.i.d., carvedilol 12.5 mg b.i.d., Ecotrin once daily, Protonix, Sinemet and Zyvox. OBJECTIVE: GENERAL: He is an elderly man who appears chronically ill. VITAL SIGNS: His blood pressure is 130/54 with pulse of 80 and sinus, respirations 14. He is afebrile. HEENT: No JVD. CHEST: Few scattered rhonchi. HEART: PMI displaced laterally with soft tones noted. ABDOMEN: Soft, nontender with normoactive bowel sounds. EXTREMITIES: No edema. Parkinsonian rigidity is present. DIAGNOSTIC DATA: Potassium 3.9. BUN and creatinine 18 and 1.2. White count 8.7, hemoglobin and hematocrit 10.7 and 33.4 with platelet count 130,000. IMPRESSION: 1. Recent ventricular tachycardia, requiring multiple implantable cardioverter-defibrillator shocks, now on oral amiodarone. 2. History of congestive cardiomyopathy. 3. Urosepsis, clinically improved. 4. Severe Parkinson's disease with associated dementia. RECOMMENDATIONS: Amiodarone loading, we will continue for now. Transfer to telemetry is reasonable. Conservative care is planned. I will follow along as needed. Negro Reyes MD
[2018-06-19 01:02] VITALS: RESP 20
[2018-06-19 06:36] LABS: BASO # 0.01 K/mm3 (0.0-2.0); BASO % 0.1 % (0.0-3.0); EOS # 0.3 (0.0-0.7); EOS % 4.8 % (1.5-5.0); HEMOGLOBIN 10.3 g/dL (14.0-18.0); LYMPH % 14.3 % (22.0-35.0); MEAN CELL VOLUME 82.5 fl (80.0-105.0); MEAN CORPUSCULAR HEMOGLOBIN 26.1 pg (25.0-35.0); MEAN CORPUSCULAR HGB CONC 31.6 g/dl (31.0-37.0); MEAN PLATELET VOLUME 11.3 fl (7.0-11.0); MONO # 0.8 (0.1-0.6); MONO % 11.3 % (1.0-6.0); RBC 3.95 10^6/uL (3.5-6.1); RED CELL DISTRIBUTION WIDTH 15.7 % (11.5-14.5); WHITE BLOOD COUNT 6.9 10^3/uL (4.5-11.0)
[2018-06-19 07:01] LABS: ALT/SGPT 9 U/L (7-56); AST/SGOT 29 U/L (17-59); BLOOD UREA NITROGEN 17 mg/dL (7-21); CALCIUM 8.8 mg/dL (8.4-10.5); GFR NON-AFRICAN AMERICAN 59
[2018-06-19 07:58] VITALS: TEMP 97.4
[2018-06-19] MEDS: Pantoprazole 40 mg EC Tab PO SCH (08:29)
[2018-06-19] MEDS: Linezolid 600 mg in D5W 300 ml 600 MG/300 ML BAG IVPB SCH (09:33)
[2018-06-19 09:47] VITALS: BP 113/66; PULSE 73
--- NOTE | 2018-06-19 11:04 | PN ---
DATE: 06/19/2018 SUBJECTIVE: The patient is seen lying in bed on telemetry. He is comfortable at the present time. He has had occasional PVCs with no runs of ventricular tachycardia. CURRENT MEDICATIONS: Include amiodarone 40 mg twice a day, carvedilol 12.5 mg twice a day, Ecotrin once daily, subcutaneous heparin, Protonix, and Zyvox. OBJECTIVE: GENERAL: He is an elderly man who is comfortable at present time. VITAL SIGNS: Blood pressure is 112/66 with pulse of 70 in sinus, respirations 14. He is afebrile. HEENT: No JVD. CHEST: Few scattered rhonchi heard. HEART: PMI displaced laterally with soft tones present. ABDOMEN: Soft and nontender with bowel sounds. EXTREMITIES: No edema. DIAGNOSTIC DATA: Potassium 4.0. BUN and creatinine 17 and 1.2. White count 6.9, hemoglobin and hematocrit 10.3 and 32.6 with platelet count of 163,000. IMPRESSION: 1. Recent ventricular tachycardia status post multiple implantable cardioverter-defibrillator firings, now appears stable on oral amiodarone therapy. 2. History of congestive cardiomyopathy. 3. Severe Parkinson's disease with associated dementia. 4. Urosepsis, improving. RECOMMENDATIONS: Oral amiodarone will be continued for now. He will be loaded with 400 mg twice a day for 2 weeks and this will be then reduced to 200 mg twice a day. From a cardiac standpoint, he is stable for discharge to home whenever felt medically as cleared. Continued outpatient followup will be arranged as well. Negro Reyes MD
--- NOTE | 2018-06-19 14:25 | CP.PCM.PN ---
<Justin Pacheco - Last Filed: 06/19/18 14:23> Subjective - Date & Time of Evaluation Date of Evaluation: 06/19/18 Time of Evaluation: 08:55 - Subjective Subjective: Justin Pacheco D.O. PGY-3, Internal Medicine Resident, Infectious Disease Progress Note 72 year old male with PMH of Parkinson's disease, cardiomyopathy with AICD who presented for concern for an episode of patient clutching his chest more than once. Infectious disease consultation was requested for sepsis. Patient was seen and examined at bedside. Significantly better. Enjoying breakfast. present. Objective - Vital Signs/Intake and Output Vital Signs (last 24 hours): Temp Pulse Resp BP Pulse Ox 97.4 F L 73 20 113/66 92 L 06/19/18 06:00 06/19/18 10:00 06/19/18 06:00 06/19/18 09:35 06/18/18 18:40 Intake and Output: 06/19/18 06/19/18 06:59 18:59 Intake Total 0 Output Total 300 Balance -300 - Labs Labs: 06/19/18 06:00 06/19/18 06:00 PT 12.8 SECONDS (9.4-12.5) H 06/15/18 20:17 INR 1.15 06/15/18 20:17 APTT 27.7 Seconds (26.9-38.3) 06/15/18 20:17 - Constitutional Appears: Non-toxic, Chronically Ill male - Head Exam Head Exam: ATRAUMATIC, NORMOCEPHALIC - Eye Exam Eye Exam: EOMI. absent: Scleral icterus - ENT Exam ENT Exam: Mucous Membranes Moist - Neck Exam Neck exam: Positive for: Normal Inspection - Respiratory Exam Respiratory Exam: Clear to Auscultation Bilateral - Cardiovascular Exam Cardiovascular Exam: +S1, +S2, AICD in place - GI/Abdominal Exam GI & Abdominal Exam: Normal Bowel Sounds, Soft. absent: Distended, Tenderness - Extremities Exam Extremities exam: Negative for: calf tenderness - Neurological Exam Neurological exam: Alert, Awake, mostly nonverbal - Skin Skin Exam: Dry, Warm Assessment and Plan - Assessment and Plan (Free Text) Assessment: 72 year old male with PMH of Parkinson's disease, cardiomyopathy with AICD who presented for concern for an episode of patient clutching his chest more than once today. Infectious disease consultation was requested for sepsis. Plan: Sepsis likely from MRSA urinary tract infection Cardiomyopathy with AICD with multiple episodes of firing Parkison's disease with dementia BPH For discharge today Discussed with Discussed with primary team Advised f/u outpatient with urology and primary team We will follow with you Patient was seen and examined and case to be discussed with attending physician Thank you for the pleasure of participating in the care of this interesting patient <Franki Turner - Last Filed: 06/19/18 21:57> Objective - Vital Signs/Intake and Output Vital Signs (last 24 hours): Temp Pulse Resp BP Pulse Ox 97.4 F L 73 20 113/66 92 L 06/19/18 06:00 06/19/18 10:00 06/19/18 06:00 06/19/18 09:35 06/18/18 18:40 - Labs Labs: 06/19/18 06:00 06/19/18 06:00 PT 12.8 SECONDS (9.4-12.5) H 06/15/18 20:17 INR 1.15 06/15/18 20:17 APTT 27.7 Seconds (26.9-38.3) 06/15/18 20:17 Attending/Attestation - Attestation I have personally seen and examined this patient.: Yes I have fully participated in the care of the patient.: Yes I have reviewed all pertinent clinical information, including history, physical exam and plan: Yes
--- NOTE | 2018-06-19 17:00 | PN ---
DATE: 06/19/2018 SUBJECTIVE: The patient is seen in bed, in no acute distress. His was at the bedside with him earlier this morning in room 264, bed 1. He is back to his baseline. PHYSICAL EXAMINATION: VITAL SIGNS: On exam, temperature is 97, blood pressure is 130/70, respiratory rate of 18. HEENT: Examination of HEENT is unremarkable. NECK: Supple. LUNGS: Have decreased breath sounds. HEART: Normal S1, S2. ABDOMEN: Soft. LABORATORY DATA: Laboratory examination reveals a white count is 6.9, hemoglobin of 10. Chemistries are noted. Urinalysis is noted. Serology is reviewed. Microbiology reveals blood cultures are negative. Urine cultures, MRSA. ASSESSMENT AND PLAN: A 72-year-old male who was seen earlier this morning in room 264, bed 1 with his at the bedside, who is admitted with sepsis with MRSA in the urine as the source. The patient has a urinary manipulation and instrumentation. Initially was given vancomycin, now on daptomycin, may use p.o. Zyvox to complete therapy. The blood cultures are negative. Case was discussed with Dr. Avila and Dr. Rambo Smith and nurse caring for the patient and the patient's at length. Dr. Aguillon's note is also reviewed. Long-term prognosis is poor. Franki Turner MD
--- NOTE | 2018-06-20 01:59 | DS ---
HISTORY OF PRESENT ILLNESS: He looks very well this morning. He is sitting up, eating, being fed by his . He is smiling. He is actually laughing and said a few words that is good for him. He was here with SVT. His ICD fired three times. He has got Parkinson's. He has had UTI while he was here also. He had MRSA, elevated prostate, PSA. He was seen by Infectious Disease, Neuro, Cardio, and Urology. He is going to be discharged today. PHYSICAL EXAMINATION: GENERAL: He is alert. He is smiling. He is gumming his food very nicely. VITAL SIGNS: He has got 97.4 temperature, 93 pulse, 136/72 blood pressure, and 20 respiratory rate. HEENT: His head is atraumatic and normocephalic. HEART: Regular rate. LUNGS: Decreased breath sounds, but clear. ABDOMEN: Soft. EXTREMITIES: No edema. Good spirits. The is happy. ASSESSMENT AND PLAN: He is going to go home on Cordarone 400 b.i.d., Coreg 12.5 b.i.d., Ecotrin 81 daily, Protonix 40 daily, Sinemet 1 tablet twice a day, and Zyvox 600 p.o. b.i.d. for five more days. I will talk to the pharmacy. I will do a house call on him and he is going to do very well. I discontinued the Do catheter. He is to urinate before he leaves. I discussed this with the nurse. Rambo Smith DO
--- NOTE | 2018-06-20 02:45 | CON ---
DATE: 06/19/2018 GENITOURINARY CONSULTATION CHIEF COMPLAINT: Chest pain. HISTORY OF PRESENT ILLNESS: This is a 72-year-old male who is known to me. The patient has a history of advanced Parkinson's disease, neurogenic bladder. He has been treated at home for many years with intermittent catheterization done 2-3 times daily by his . The patient was having chest pain. He has an implanted defibrillator which apparently went off a few times. He was brought to the hospital and admitted to the Coronary Care Unit. He was undergoing workup and evaluation and treatment for his cardiac disease, and during the admission, was found to have MRSA urinary tract infection and Do catheter had been placed. The patient was receiving antibiotics as per ID recommendation. The patient has now been transferred to the telemetry unit. Plan is for him to be discharged in the near future. The Do catheter has been removed. The patient is noncommunicative. He is seen in his room in [facility] with his present. I have reviewed the patient's chart and history with his . PAST MEDICAL HISTORY: Significant for advanced Parkinson's disease, cardiac arrhythmia, hypertension, dementia, anemia, arthritis, neurogenic bladder, depression. MEDICATIONS: Currently included Cordarone, Coreg, Ecotrin, heparin flush, subcu heparin, Protonix, Sinemet, Tylenol, and Zyvox. ALLERGIES: NO KNOWN DRUG ALLERGIES. FAMILY HISTORY: Noncontributory for this admission. SOCIAL HISTORY: No recent smoking or EtOH use. REVIEW OF SYSTEMS: These are currently per the history of present illness. The patient is nonverbal. His current complaints were urinary and cardiac as per the HPI. PHYSICAL EXAMINATION: GENERAL: The patient is awake and responsive, although he is nonverbal. VITAL SIGNS: He has been afebrile, temperature 97.4, pulse 73, BP 113/66, respirations 20. NECK: Shows no obvious adenopathy. The patient is contracted. CHEST: Shows a normal inspiratory effort. CARDIAC: Shows an irregular rhythm. There is some mild peripheral edema noted. ABDOMEN: Soft, nontender, nondistended. There is no obvious costovertebral angle tenderness. There is no hepatosplenomegaly. His bladder is not palpably distended. GENITOURINARY: The phallus is normal. Scrotum is normal. Testes are bilaterally descended, nontender. No masses. Epididymides are normal. EXTREMITIES: Show no cyanosis, but he is contracted. LABORATORY DATA: Urine culture grew MRSA. Blood cultures were negative. WBC count 6.9. GFR 59 which is stable. On radiologic exam, no pertinent urologic imaging was done. IMPRESSION AND PLAN: This is a 72-year-old male with a long history of advanced Parkinson's, currently he has methicillin-resistant Staphylococcus aureus urinary tract infection. No sepsis with negative blood cultures. I had a long discussion with his regarding the plan. Do catheter has been removed. She has not had any difficulties catheterizing him at home and she will continue to do this 2-3 times per day. She reports on the evening catheterizations, she usually does not obtain much urine. I advised her that if she is getting larger volumes, she should increase the frequency of catheterization. She denies any trauma or gross hematuria. She will finish the antibiotics given to him by the Infectious Disease database reporting consultant. She will call my office if there are any further difficulties with the catheterization. Otherwise, we will continue to follow this unfortunate patient given his advanced Parkinson's and dementia. Thank you for allowing me to participate in the care of this patient. Tank Aguillon MD
== END 2018-06-19 12:02 | disposition home health service (06) | DRG 308 ==
LOC: ED 19:43 → ERH 21:17 → CCU 22:54 → ICU 06-18 15:09 → 2RNO 06-18 22:39
PROVIDERS: ADMIT Family Medicine; ATTEND Family Medicine
PROC: 4B02XTZ Measurement of Cardiac Defibrillator, External Approach (ICD-10-PCS; principal; 2018-06-16)
PROC: 0T9B70Z Drainage of Bladder with Drainage Device, Via Natural or Artificial Opening (ICD-10-PCS; 2018-06-18)
DX: I47.2 Ventricular tachycardia (principal); A41.9 Sepsis, unspecified organism; N39.0 Urinary tract infection, site not specified; I42.0 Dilated cardiomyopathy; B95.62 Methicillin resistant Staphylococcus aureus infection as the cause of diseases classified elsewhere; E86.0 Dehydration; G20 Parkinson's disease; F02.80 Dementia in other diseases classified elsewhere, unspecified severity, without behavioral disturbance, psychotic disturbance, mood disturbance, and anxiety; I10 Essential (primary) hypertension; I49.3 Ventricular premature depolarization; N31.9 Neuromuscular dysfunction of bladder, unspecified; N40.1 Benign prostatic hyperplasia with lower urinary tract symptoms; R33.8 Other retention of urine; R32 Unspecified urinary incontinence; F32.9 Major depressive disorder, single episode, unspecified; E78.5 Hyperlipidemia, unspecified; Z95.810 Presence of automatic (implantable) cardiac defibrillator; Z96.642 Presence of left artificial hip joint; Z79.82 Long term (current) use of aspirin; Z87.891 Personal history of nicotine dependence; Z79.899 Other long term (current) drug therapy